=== PATIENT | female | born 1945 | race Caucasian/White ===

== ENCOUNTER → 2017-07-22 | Outpatient (CLI) | payer OTHER ==
[~2017-07-22] MED LIST: ACETAMINOPHEN-1 EAC1 PO; ACETAMINOPHEN325 M1 PO; ALDARA1 EACH TP; AMOXICILLIN 50500 MG PO; BACTRIM DS TAB1 EACH PO; CALCIUM; CALCIUM 500 +1 EAC5 PO; CALCIUM 600 +1 EA11 PO; CATHFLO ACT2 MG/VIA1 PO; CELEBREX 200 M200 M1 PO; CIPRO500 MG PO; CIPROFLOXACIN500 M1 PO; CLARITIN-D 24 H1 TA1 PO; COLACE 100 MG100 MG PO; COLACE100 MG PO; COUMADIN 2.5MG2.5 M1 PO; COUMADIN 5 MG TA5 M1 PO; DAPTOMYCIN IV; DILAUDID 2 MG TA2 MG PO; DOXYCYCLINE 10100 MG; DOXYCYCLINE 10100 MG PO; DOXYCYCLINE HY100 MG PO; DURAGESIC1 EAC2; EFFEXOR XR75 MG PO; FENTANYL PA12 MCG/H1 TP; FENTANYL PA12 MCG/H1 TRANSDERM; FENTANYL PA12 MCG/HR TP; FENTANYL PA25 MCG/HR TOP; FENTANYL PA25 MCG/HR TP; FENTANYL1 EAC1 TD; FERRO-TIME325 MG PO; FUROSEMIDE 40 M40 MG PO; HAIR, SKIN & N1 EAC3 PO; HYDROCODON-ACE1 EAC7 PO; IRON325 PO; KLOR-CON 10 ER10 MEQ PO; LASIX 40 MG TAB40 M2 PO; LEVOXYL150 MCG PO; LEVOXYL50 MCG PO; LIDODERM 5%1 PATCH TOP; LISINOPRIL20 MG PO; LOPRESSOR 50 MG50 M1 PO; MAGNESIUM-VIT1 EACH PO; MAGNESIUM400 MG PO; MELATONIN3 MG PO; MINOCYCLINE 5050 M1 PO; MULTI VITAMIN1 EACH PO; MULTIVITAMINS PO; NEURONTIN 300300 M1 PO; NORCO 5-325 TA1 EACH PO; NYSTATIN 1100000 U/M PO; NYSTATIN CREAM; OMEGA-3 FISH O1 EAC5 PO; PAXIL 20 MG TAB20 MG PO; PENTOXIFYLLINE400 MG PO; POTASSIUM20 PO; PRADAXA150 MG; PRADAXA150 MG PO; PRENATAL COMPL1 EACH PO; PRENATAL PO; PROBIOTIC1 EAC1 PO; RIFAMPIN 300 M300 M1 PO; SIMVASTATIN40 MG PO; STOOL SOFTENER1 EAC2 PO; TERCONAZOLE20 GM TOP; TERCONAZOLE20 GM VAG; TOPROL XL50 MG PO; TRAMADOL 50 MG50 MG PO; TYLENOL325 MG PO; ULTRACET TABLET1 TAB PO; VANCOMYCIN1 GM/250 M IV; VITAMIN D32000 UNI1 PO; VITAMIN D3400 UNI2 PO; XANAX 0.5 MG0.5 M1 PO; XARELTO20 MG PO; ZYRTEC-D TABLE1 EAC1 PO; [UNRECOGNIZED DRUG - OTHER] TOP
== END ==
LOC: RAD 03:33
DX: Z12.31 Encounter for screening mammogram for malignant neoplasm of breast (principal)

== ENCOUNTER → 2018-08-10 | Outpatient (CLI) | payer OTHER | LOC: BC 03:13 | DX: Z12.31 Encounter for screening mammogram for malignant neoplasm of breast (principal) ==

== ENCOUNTER 2018-10-28 18:27 | Inpatient (IN) | payer OTHER ==
[~2018-10-28] VITALS: Ht 172.7 cm; Wt 160.1 kg
[2018-10-28 18:28] VITALS: BP 125/57
[2018-10-28 19:43] LABS: ABSOLUTE NEUTROPHILS 5.1 thou/uL (1.4-8.2); BASOPHILS 1.2 % (0.0-2.0); EOSINOPHILS 1.1 % (0.0-3.0); HEMATOCRIT 38.4 % (37.0-47.0); HEMOGLOBIN 12.3 gm/dL (12.0-15.0); LYMPHOCYTES 16.8 % (24.0-44.0); MCH 30.2 pg (26.0-34.0); MCHC 32.1 g/dL (28.0-37.0); MCV 94.2 fL (80.0-100.0); MONOCYTES 10.5 % (1.0-8.0); PLATELET COUNT 255 thou/uL (150-400); POLYS 70.4 % (36.0-66.0); RBC 4.07 mil/uL (4.20-5.00); WBC 7.2 thou/uL (4.0-11.0)
[2018-10-28 19:48] LABS: ANION GAP 3 mmol/L (7-16); BUN 29 mg/dL (7-18); CALCIUM 8.9 mg/dL (8.5-10.1); CHLORIDE 105 mmol/L (98-107); CO2 32 mmol/L (21-32); CREATININE 1.2 mg/dL (0.6-1.0); GLUCOSE 94 mg/dL (74-106); POTASSIUM 5.3 mmol/L (3.5-5.1); SODIUM 140 mmol/L (136-145)
[2018-10-28 20:02] LABS: MAGNESIUM 1.8 mg/dL (1.8-2.4); SGOT 48 U/L (15-37); SGPT 19 U/L (30-65); TOTAL BILIRUBIN 0.7 mg/dL (<0.1-1.0); TOTAL PROTEIN 6.6 g/dL (6.4-8.2); TROPONIN-I <0.06 ng/mL (<0.06)
[2018-10-28 21:01] VITALS: BP 127/54
[2018-10-28 21:17] VITALS: BP 110/33
[2018-10-28 23:42] VITALS: BP 141/61
--- NOTE | 2018-10-29 03:23 | NUR ---
ADMIT FROM ER. DURING ADMISSION IN THE PT ER PHYSICIAN INDICATED PT DID NOT WANT TO TAKE LASIX THIS EVENING, NOR WANTED HENNING. BLLE +3 WITH DEEP PITTING. SPOKE TO PT ABOUT BENEFITS OF MEDICATION WITH DISEASE PROCESS. MOVING THE PT TAKES MAX ASSISTANCE. WOUNDCARE PICTURES WERE TAKEN ON 3 ITEMS. PUT EXTERNAL CATH ON PT. HOURLY ROUNDING.
[2018-10-29 03:46] VITALS: BP 110/53
[2018-10-29 07:30] VITALS: BP 118/61
--- NOTE | 2018-10-29 08:52 | EKG ---
[address] [employer] 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 : 1945 Requested By: Vinicio Martines Order Number: [id number] MD: Rob Ash Measurements Intervals Cyril Rate: 75 P: NE: QRS: 49 QRSD: 105 T: 21 QT: 390 QTc: 436 Interpretive Statements Atrial fibrillation Low voltage, precordial leads Minimal ST depression, anterolateral leads Compared to ECG 10/24/2015 15:41:13 No significant change was found Electronically Signed On 10-29-2018 8:52:40 INDEX CLERK by Rob Ash [email or web address] <ELECTRONICALLY SIGNED> By: Rob Ash MD, [facility] 10/29/18 0852 [id number] Rob Ash MD, [facility] /EPI
[2018-10-29 12:00] VITALS: BP 113/66
--- NOTE | 2018-10-29 12:21 | NUR ---
Nutrition: pt admitted with left knee pain, heart failure, HTN. Seen per consult related to malnutrition and heart healthy education. Defer malnutrition dx to physician. Pt reports appetite is good. Weights are increased 30# from usual. 2+ generalized edema and 3+ bilateral leg edema. Does not follow diet at home although avoids salt. See education log for details. Otherwise consider low risk.
--- NOTE | 2018-10-29 15:15 | 2DMMODE ---
[facility] [place] [address] 2 D/M-MODE ECHOCARDIOGRAM Name: ANAMIKA MEEK [place] Room #: 363-P ADM IN M.R.#: [id number] Admission: 10/28/18 Attend Phys: Ron Manley MD Discharge: Date of : 49 Date of Service: 10/29/18 1139 Report #: [id number] THIS REPORT FOR: //name// APPROVED REPORT Study performed: 10/29/2018 10:11:06 EXAM: Comprehensive 2D, Doppler, and color-flow Echocardiogram with contrast Patient Location: Bedside Room #: 363 Status: routine BSA: 2.56 HR: 72 bpm BP: 118/61 mmHg Rhythm: Atrial Fibrillation Other Information Study Quality: FairTechnically Limited Indications Congestive Heart Failure Atrial Fibrillation Echo Enhancing Agent Indication: Endocardial border delineation Agent(s) / Amount(s) Used: Optison 10 cc 2D Dimensions RVDd: 40.30 mm IVSd: 13.57 (7-11mm) LVOT Diam: 22.04 (18-24mm) LVDd: 42.82 mm PWd: 13.88 (7-11mm) Ascending Ao: 34.63 (22-36mm) LVDs: 31.31 (25-40mm) Aortic Root: 33.02 mm Volumes Left Atrial Volume (Systole) Single Plane 4CH: 89.90 mL Single Plane 2CH: 63.17 mL LA ESV Index: 31.05 mL/m2 Aortic Valve AoV Peak Ramon.: 1.31 m/s AO Peak Gr.: 8.49 mmHg LVOT Max P.53 mmHg LVOT Max V: 1.06 m/s PÉREZ Vmax: 3.08 cm2 [facility] [place] [address] [place] [address] 2 D/M-MODE ECHOCARDIOGRAM Name: ANAMIKA MEEK [place] Room #: 363-P ADM IN .R.#: [id number] Admission: 10/28/18 Attend Phys: Ron Manley MD Discharge: Date of : 49 Date of Service: 10/29/18 1139 Report #: [id number] Mitral Valve E/A Ratio: 1.0 MV Decel. Time: 138.69 ms MV E Max Ramon.: 1.34 m/s MV A Ramon.: 1.31 m/s MV PHT: 40.22 ms Pulmonary Valve PV Peak Ramon.: 0.70 m/s PV Peak Gr.: 1.99 mmHg Tricuspid Valve TR Peak Ramon.: 3.65 m/s TR Peak Gr.: 53.32 mmHg Left Ventricle The left ventricle is normal size. Mild concentric left ventricular hypertrophy. The left ventricular systolic function is normal. The left ventricular ejection fraction is within the normal range. LVEF is 55-60%. This study is not technically sufficient to allow evaluation of the LV diastolic function due to atrial fibrillation. Atria Left atrium is dilated. Right atrium is dilated. Aortic Valve Aortic valve is trileaflet. Aortic valve is calcified. No aortic regurgitation is present. There is no aortic valvular stenosis. Mitral Valve The mitral valve is normal in structure. Mild mitral regurgitation. No evidence of mitral valve stenosis. Tricuspid Valve The tricuspid valve is normal in structure. Moderate tricuspid regurgitation. Unable to assess PA pressure due to poor subcostal window. Pulmonic Valve Pulmonic valve is not well visualized. There is no pulmonic valvular regurgitation. Great Vessels [facility] [address] [address] 2 D/M-MODE ECHOCARDIOGRAM Name: ANAMIKA MEEK JUDITH Room #: 363-P ADM IN M.R.#: [id number] Admission: 10/28/18 Attend Phys: Ron Manley MD Discharge: Date of : 49 Date of Service: 10/29/18 1139 Report #: [id number] The aortic root is normal in size. The ascending aorta is normal in size. Pericardium There is no pericardial effusion. <Conclusion> The left ventricle is normal size. LVEF is 55-60%. Left atrium is dilated. Right atrium is dilated. Aortic valve is trileaflet. Aortic valve is calcified. No aortic regurgitation is present. There is no aortic valvular stenosis. The mitral valve is normal in structure. Mild mitral regurgitation. The tricuspid valve is normal in structure. Moderate tricuspid regurgitation. Unable to assess PA pressure due to poor subcostal window. Pulmonic valve is not well visualized. The aortic root is normal in size. There is no pericardial effusion. <ELECTRONICALLY SIGNED> By: Andrae Patel MD 10/29/18 1139 1139 1139 Andrae Patel MD /INF
[2018-10-29 15:24] VITALS: BP 105/43
--- NOTE | 2018-10-29 15:32 | NUR ---
WOUND CONSULT: PT. WAS SEEN TODAY BY DR. CALVO AND MYSELF. PT. HAS LYMPEDEME WITH CELLULITIS TO HER LOWER EXTREMTIYS. SHE HAD SKIN CANCER AT ONE POINT AND HAD SURGERY TO REMOVE THE SPOTS. PT. LEGS ARE VERY DRY AND FLAKY. PT. ALSO SUFFERES FROM EXCORATION UNDER HER PANNUS AND BREAST. RECOMMENDATIONS: LOTION TO LEGS AND INTERDRY TO PANNUNS AND BREAST. PT. AND STAFF NURSE WERE INSTRUCTED ON PLAN OF CARE.
[2018-10-29 19:32] VITALS: BP 132/80
--- NOTE | 2018-10-29 19:36 | NUR ---
ASSUMED PT CARE AT 0700H. PT HAS NO S/S OF DISTRESS. PT A&O X4. PT STATES NO PAIN. PT TOLERATES MEDS AND MEALS. PT L HIP DRS C/D/I. PT HAD TOP CREAM ON BILATERAL LEGS. PT BILATERAL RUELAS WOUNDS WELT STITCH CLEANER ARE DRY. PT USES EXTERNAL CATH. PT UNDER BREAST AND ABD HAS INTERDRY WITH REDNESS SKIN. PT ON Q2 TURNS. PT USES MAX ASSIST. PT ON AIR LOSS MATTRESS. PT CALL LIGHT WITHIN REACH. PT CONTINUES TO BE MONITORED FOR SAFETY.
[2018-10-30 04:48] VITALS: BP 108/52
--- NOTE | 2018-10-30 05:29 | NUR ---
RESUMED CARE FOR PT THIS EVENING. PT STATES SHE DID NOT SLEEP WELL THE PREVIOUS NIGHT. I AGREED WITH PT THAT I WOULD LIMIT THE AMOUNT OF INTERRUPTIONS THROUGHOUT THE SHIFT AND ALLOW FOR SOME SOLID SLEEP. ANSWERED PT AND FAMILY'S QUESTIONS ABOUT THE POC. COMPLETED SHIFT ASSESSMENT AND COMPLETED MED PASS. PT STATES NO PAIN OR NAUSEA. VSS. WILL CONTINUE TO MONITOR.
[2018-10-30 05:40] LABS: HEMATOCRIT 34.4 % (37.0-47.0); HEMOGLOBIN 11.1 gm/dL (12.0-15.0); MCH 30.6 pg (26.0-34.0); MCHC 32.4 g/dL (28.0-37.0); MCV 94.4 fL (80.0-100.0); RBC 3.64 mil/uL (4.20-5.00); WBC 5.7 thou/uL (4.0-11.0)
[2018-10-30 05:52] LABS: CALCIUM 8.4 mg/dL (8.5-10.1); CREATININE 1.4 mg/dL (0.6-1.0); MAGNESIUM 1.7 mg/dL (1.8-2.4); POTASSIUM 4.3 mmol/L (3.5-5.1)
[2018-10-30 07:31] VITALS: BP 120/59
[2018-10-30 08:22] LABS: FOLIC ACID 72.5 ng/mL (8.6-58.9)
[2018-10-30 12:07] VITALS: BP 127/61
--- NOTE | 2018-10-30 14:43 | NUR ---
ASSESSMENT: CM REVIEWED CHART AND MET WITH PATIENT AT THE BEDSIDE. PT WAS ADMITTED WITH CHF AND LEFT KNEE PAIN. PT REPORTS LIVING IN A HOUSE WITH HER . PT HAS A RAMP TO ENTER THE HOME AND DOES NOT HAVE TO USE ANY STEPS. PT HAS A LIFT CHAIR, WALKER, AND WHEELCHAIR. PT REPORTS HAVING A SHOWER BENCH AND GRAB BAR. PT STATES SHE HAS HAD [facility] IN THE PAST FOR HH AND HAS ALSO BEEN TO [facility] IN THE PAST FOR SNF STAY. PATIENT IS NEEDING POST ACUTE CARE POST DISCHARGE. CM DISCUSSED ROLE AND ASKED IF PATIENT WANTED REFERRAL TO BE SENT TO [facility] AND SHE STATED SHE HAD A FRIEND THERE AND IS UNSURE SHE WOULD WANT TO GO BACK BUT WOULD HAVE TO DISCUSS WITH HER AND DAUGHTER. CM DISCUSSED THAT THE SOONER REFERRALS ARE SENT OUT THE BETTER AND ALSO THAT REFERRALS TAKE SOME TIME AND HAVE TO CHECK BED AVAILABLITY. PT REPORTS SHE DOES NOT WANT REFERRALS SENT OUT AT THIS TIME. PT STATING SHE CAME TO THE HOSPITAL FOR A REASON AND SHE IS NOT READY TO BE DISCHARGED. CM LEFT PATIENT WITH SNF LIST TO REVIEW WITH HER AND DAUGHTER AND CM STATED CM CAN COME BACK LATER TO SEND REFERRALS AND SHE STATED SHE WILL NOT BE READY FOR REFERRALS TO BE SENT TODAY. CM NOTIFIED ATTENDING. CM WILL CONTINUE TO FOLLOW TO ASSIST NEEDED.
[2018-10-30 16:27] VITALS: BP 120/72
[2018-10-30 19:13] VITALS: BP 96/55
--- NOTE | 2018-10-30 20:41 | NUR ---
ASSUMED PT CARE AT 0700H. PT A&O X4. PT STATES CONCERN OF BEING CONSTIPATED. CONSULTED PHYSICIAN, NEW ORDERS RECEIVED AND ACKNOWLEDGED. PT HAD BM IN THE AFTERNOON. BOWEL WAS SEMI SOFT STOOL WITH COVERED FRESH BLOOD. CONSULTED PHYSICIAN. WRITTEN ORDERS RECEIVED AND ACKNOWLEDGED. THIS EVENING PT HAD TAKEN PRUNE JUICE AND MIRALAX EARLIER. PT BOWEL WERE SOFT AND FORMED WITH LIQUID DARK BLOOD STAINED PAD FLUID. CONSULT FOR GI INPLACE. PASSED ON CURRENT STATUS TO ON COMING STAFF PLUS CONCERN OF CASE MANAGEMENT DC TO FACILITY CONCERNS. PT L HIP DRS C/D/I AND BILATERAL WOUND ADDRESSED WITH [facility]. PT CALLS APPROPRIATELY. PT CONT TO BE Q2H TURN AND CONTINUES TO BE MONITORED FOR SAFETY.
[2018-10-30 23:37] VITALS: BP 129/66
[2018-10-31 04:00] VITALS: BP 108/50
[2018-10-31 07:20] VITALS: BP 133/54
[2018-10-31 07:39] LABS: CALCIUM 8.7 mg/dL (8.5-10.1); CREATININE 1.4 mg/dL (0.6-1.0)
--- NOTE | 2018-10-31 08:05 | NUR ---
ASSUMED CARE AT 1900, ASSESSMENT COMPLETED. SPOKE EXTENSIVELY WITH PT AND HER DAUGHTER REGARDING DISCHARGE PLANS AND ITEMS TO DISCUSS WITH PHYSICIAN. PER BOTH, GUZMAN (DTR) SHOULD BE SPOKEN WITH REGARDING ANY PLANS, TESTS, OR RESULTS, AND HAS LEFT HER NUMBERS TO BE CONTACTED AT ANY TIME NEEDED. PT DENIED PAIN EXCEPT MILD PAIN IN HER KNEES WHICH VOLTAREN GEL HELPED WITH. NO NAUSEA OR SOB. 3-4+ PITTING EDEMA IN BILAT LEGS AND FEET, MILD EDEMA TO LEFT HAND. CLEANED EXCORIATED AREAS UNDER BREASTS AND ABD FOLDS, REPLACED INTERDRY UNDER BREASTS, CHANGED GOWN, CHANGED EXTERNAL FEMALE CATHETER. HAS BEEN AFIB WITH HR 70-90 ON TELE. ONE MEDIUM BM LAST NIGHT, FORMED WITH SMALL AMOUNT OF BLOODY LIQUID SURROUNDING IT; GI CONSULTED AND WILL SEE TODAY. OBTAINED ORDERS FOR LABS THIS AM TO FOLLOW TREND OF KIDNEY FUNCTION. IV LASIX GIVEN THIS AM, HAD APPROX 1050 ML URINE OUT VIA CATHETER. NO OTHER CONCERNS, SHIFT REPORT GIVEN AT 0700.
[2018-10-31 11:52] VITALS: BP 129/58
--- NOTE | 2018-10-31 15:19 | NUR ---
ASSUMED PATIENT CARE AT 0715. A&OX4. COMPLAINTS OF BACK PAIN WHEN PATIENT SITS UP TO HIGH. ATTEMPTED TO SIT AT EDGE OF BED FOR LUNCH WITHOUT SUCCESS. EXTERNAL FEMALE CATH IN PLACE. PATIENT HAD BOWEL MOVEMENT TODAY ON BEDPAN. STOOL WAS FREE FROM BLOOD. PATIENT HAS NOT PICKED A FACILITY FOR DISCHARGE. FAMILY AT BEDSIDE MOST OF THE DAY. SLOWLY WORKING TOWARDS GOALS.
[2018-10-31 15:55] VITALS: BP 118/48
[2018-10-31 19:58] VITALS: BP 111/67
[2018-11-01 04:17] VITALS: BP 88/52
--- NOTE | 2018-11-01 05:01 | NUR ---
ASSUMED CARE OF PT AT 1900. A&Ox4, COOPERATIVE. VS STABLE. AFIB ON TELE AND COMPLIANT W/ MEDICATIONS. DENIED PAIN AND RESP DISTRESS. C/O FEELING WET, EXTERNAL FEMALE WICK CHANGED AND BEDDING CHANGED. PT WAS ABLE TO ASSIST W/ BED MOBILITY, TURNING FROM SIDE TO SIDE W/ ASSIST. WAS AT BEDSIDE UNTIL 2200. BLE 4+ EDEMA, FOOT OF BED ELEVATED, FIDEL HOSE ON. PROGRESSING TOWARD POC GOALS. SLOWLY PROGRESSING TOWARDS POC GOALS. WILL CONTINUE TO PROVIDE CARE AND MONITOR.
[2018-11-01 07:52] VITALS: BP 105/39
--- NOTE | 2018-11-01 11:01 | NUR ---
care of pt assumed this am @ ~0700. pt noted to be sleeping soundly this am, but need to awaken pt @ 1000 for morning medications, assessment and breakfast waiting. pt stated she slept well last night, but just tired this am. pt noted to be minimally motivated to increase her activity today. she states she was unable to sit on the side of the bed (yesterday) for any length of time due to the pain in her buttock/lower back (rt a chronic condition she has). pt denies her desire to try an ambulate to the door jam today. pt does not think that she can sit up in the chair for any length of time today. pt denies need for pain medication this am, denies soa and denies n/v. pt states she has had hx of constipation, but noc rn stated pt had x2 bm yesterday. noted ble discoloration (torres-black) to skin, pt states this has been normal for her over the last year rt an antibx she has been taking for years, ble elevated on pillows dt edema and comfort level.
[2018-11-01 11:19] VITALS: BP 111/51
[2018-11-01 15:27] VITALS: BP 113/72
[2018-11-01 20:40] VITALS: BP 115/62
[2018-11-02 05:10] VITALS: BP 114/47
[2018-11-02 05:28] LABS: HEMATOCRIT 34.5 % (37.0-47.0); HEMOGLOBIN 11.4 gm/dL (12.0-15.0); MCH 31.3 pg (26.0-34.0); MCHC 33.1 g/dL (28.0-37.0); MCV 94.6 fL (80.0-100.0); PLATELET COUNT 205 thou/uL (150-400); RBC 3.64 mil/uL (4.20-5.00); RDW 16.1 % (10.5-14.5); WBC 5.5 thou/uL (4.0-11.0)
[2018-11-02 05:54] LABS: ALBUMIN 1.8 g/dL (3.4-5.0); CALCIUM 8.7 mg/dL (8.5-10.1); CREATININE 1.4 mg/dL (0.6-1.0); MAGNESIUM 1.8 mg/dL (1.8-2.4); TOTAL BILIRUBIN 0.5 mg/dL (<0.1-1.0); TOTAL PROTEIN 5.2 g/dL (6.4-8.2)
[2018-11-02 06:00] LABS: ABSOLUTE NEUTROPHILS 3.9 thou/uL (1.4-8.2); ANISOCYTOSIS 1+; ATYPICAL LYMPHS 4 %
[2018-11-02 07:17] VITALS: BP 90/51
--- NOTE | 2018-11-02 07:45 | NUR ---
ASSUMED CARE OF PT AT 1900. A&Ox4, COOPERATIVE. VS WERE STABLE OVER NOC. BP RUNS SOFT IN AM THIS AM AND YEST MORNING. BETTER WHEN RECHECKED AROUND 0800. BECAME VERY UPSET OVER NOC WHEN SHE FOUND OUT MINOCYCLINE HAD BEEN DC'd. CONTACTED CARGO TRIMMER AND WAS REORDERED PT REQUESTED. PT CONTINUES INCONTINENCE WITH AN EXTERNAL FEMALE CATHETER IN PLACE. CHANGED PRN. REQUESTED A BED BAUTISTA TO TRY TO HAVE A BM, WAS NOT ABLE TO GO BUT TRIED. NO ACUTE OR RESP DISTRESS. SLOW PROGRESSION TOWARDS POC GOALS.
--- NOTE | 2018-11-02 10:24 | NUR ---
ON-GOING ASSESSMENT: CM REVIEWED CHART AND MET WITH PATIENT AND HER AT THE BEDSIDE. CM ALSO SPOKE WITH PATIENTS DAUGHTER. PATIENT IS AGREEABLE TO GO TO SNF AND DAUGHTER HAS TOURED DIFFERENT FACILITIES THIS WEEKEND AND WANTS A REFERRAL TO [facility] THEIR FIRST AND SEON CHOICE. CM NOTIFIED INS[employer] TO ASSIST WITH REFERRALS. CM WILL CONTINUE TO FOLLOW.
--- NOTE | 2018-11-02 10:37 | NUR ---
DP SENT REFERRALS TO [facility], REQUESTING THEY LET US KNOW IF THEY CAN ACCEPT PATIENT. PATIENT LIKELY TO DISCHARGE TODAY. DP WILL FOLLOW UP.
[2018-11-02 11:19] VITALS: BP 104/51
[2018-11-02] MEDS ORDERED: CITRATE OF MAG296 ML PO (12:30)
[2018-11-02] MEDS ORDERED: LEVAQUIN 500 M500 M1 PO (12:30)
[2018-11-02] MEDS ORDERED: MIRALAX17 GM PO (12:30)
[2018-11-02] MEDS ORDERED: LASIX 40 MG TAB40 M1 PO (12:30)
[2018-11-02] MEDS ORDERED: AMMONIUM LACTA226 GM TOP (12:30)
[2018-11-02] MEDS ORDERED: COLACE 100 MG100 MG PO (12:30)
[2018-11-02] MEDS ORDERED: VOLTAREN GEL 1100 G1 TOP (12:30)
--- NOTE | 2018-11-02 14:46 | NUR ---
care of pt assumed this am @ ~0700. pt sitting w/ this am, both were present when dr. brantley stopped in. pt verbalized frustration w/ the care she has received from dr. brantley. pt advocate notified of pt concern this afternoon. pt tele dc'd and iv access dc'd rt discharge to [facility] this afternoon @ 1500. discharge packet gone through w/ pt and pt's daughter per their request. all belongings gathered by pt's daughter and exported to her [facility]. pt has preferred to use the bedpan vs the bsc today. use of external female catheter for urine collection today.
--- NOTE | 2018-11-02 16:07 | HC ---
[facility] [place] [address] CONSULTATION Name: NAAMIKA MEEK Room #: 363-P ADM IN M.R.#: [id number] Admission: 10/28/18 Attend Phys: Ron Manley MD Discharge: Date of : 49 Report #: [id number] THIS REPORT FOR: //name// CC: Ron Bella DATE OF SERVICE: 10/29/2018 CHIEF COMPLAINT: Lower extremity ulcerations. HISTORY OF PRESENT ILLNESS: This is a 73-year-old female patient who is admitted to the hospital with some knee pain. She apparently had mild shortness of breath. She was also noted to have ulceration to both lower extremities. I was asked to see her with regard to these ulcerations. She has had previous Mohs surgery on her lower extremities and has some venous stasis dermatitis. The patient denies significant pain associated with that. ALLERGIES: ADHESIVES, KETOROLAC, LATEX, HYDROCODONE, OXYCODONE. MEDICATIONS: Include Xanax, , Neurontin, Pradaxa, melatonin, Tylenol, Lasix, K-Dur, minocycline, Toprol, Levoxyl, Effexor. 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 SOCIAL HISTORY: Negative for alcohol or tobacco use. FAMILY HISTORY: Noncontributory. REVIEW OF SYSTEMS: CONSTITUTIONAL: No fever, chills, weight loss. NEUROLOGICAL: The patient denies focal weakness, numbness or tingling. EYES: The patient denies visual changes, redness or drainage. ENT: The patient denies earache, nasal drainage or sore throat. CARDIOVASCULAR: The patient denies chest pain, palpitation or diaphoresis. PULMONARY: The patient denies cough or shortness of breath. GASTROINTESTINAL: The patient denies nausea, vomiting, diarrhea, abdominal pain. ORTHOPEDIC: The patient does have pain, swelling in the lower extremities, pain in her left knee, as well as ulcerations to both lower extremities. Other systems in 14-point review of systems are negative. [address] [address] CONSULTATION Name: ANAMIKA MEEK FREDONIA Room #: 363-P ADM IN M.R.#: [id number] Admission: 10/28/18 Attend Phys: Ron Manley MD Discharge: Date of : 49 Report #: [id number] PHYSICAL EXAMINATION: VITAL SIGNS: At this time include pulse 70, respiration 17, blood pressure 105/43, and temperature 97.5. GENERAL: This is a chronically ill-appearing female patient who appears to be in mild discomfort. HEENT: Head normocephalic. Nose and throat are clear. NECK: Supple. LUNGS: Diminished. HEART: Irregular. ABDOMEN: Soft. Bowel sounds are present. SKIN: Examination of the skin folds of beneath her breast and abdominal wall demonstrate mild intertrigo present. EXTREMITIES: Lower extremities demonstrate 3+ edema. She has venous stasis dermatitis of bilateral lower extremities and evidence of healing, surgical wounds to both pretibial regions following Mohs surgery. These actually appear to be mostly closed. LABORATORY DATA: Sodium 142, potassium 4.3, chloride 104, CO2 35, BUN 31, creatinine 1.4, glucose 82. White blood cell count 5.7, hemoglobin 11.1. CLINICAL IMPRESSION: 1. Surgical wounds, bilateral lower extremities following Mohs surgery for squamous cell carcinoma. 2. Venous stasis dermatitis, bilateral lower extremities. 3. Skin fold intertrigo. 4. Congestive heart failure. 5. Morbid obesity. RECOMMENDATIONS: At this point in time, the patient would need low air loss mattress, q. 2 hour turning and positioning. She has declined Prevalon boots for lower extremities. Recommend AmLactin cream to her legs. Recommend elevation for now to help with edema. Recommend InterDry AG to deal with the skin fold dermatitis/intertrigo. I appreciate being asked to see her in consultation. <ELECTRONICALLY SIGNED> By: Williams Ramires MD 11/02/18 1607 [id number] Williams Ramires MD /nt
== END 2018-11-02 17:40 | DRG 682 ==
LOC: ER 18:27 → EROBS 20:52 → 3W 20:52
PROVIDERS: Emergency Medicine; Nurse Practitioner Acute Care; Nurse Practitioner Family; ADMIT Internal Medicine
DX: N17.9 Acute kidney failure, unspecified (principal); I50.33 Acute on chronic diastolic (congestive) heart failure; E43 Unspecified severe protein-calorie malnutrition; I13.0 Hypertensive heart and chronic kidney disease with heart failure and stage 1 through stage 4 chronic kidney disease, or unspecified chronic kidney disease; Z68.43 Body mass index [BMI] 50.0-59.9, adult; K62.5 Hemorrhage of anus and rectum; M17.12 Unilateral primary osteoarthritis, left knee; E66.01 Morbid (severe) obesity due to excess calories; Z71.3 Dietary counseling and surveillance; E03.9 Hypothyroidism, unspecified; F32.9 Major depressive disorder, single episode, unspecified; I87.2 Venous insufficiency (chronic) (peripheral); I48.2 Chronic atrial fibrillation; B96.89 Other specified bacterial agents as the cause of diseases classified elsewhere; M46.40 Discitis, unspecified, site unspecified; M62.84 Sarcopenia; K59.00 Constipation, unspecified; D64.9 Anemia, unspecified; G62.9 Polyneuropathy, unspecified; N18.3 Chronic kidney disease, stage 3 (moderate); L30.4 Erythema intertrigo; Z96.641 Presence of right artificial hip joint; Z96.651 Presence of right artificial knee joint; Z85.828 Personal history of other malignant neoplasm of skin; Z90.49 Acquired absence of other specified parts of digestive tract; Z86.14 Personal history of Methicillin resistant Staphylococcus aureus infection; Z79.899 Other long term (current) drug therapy; Z91.040 Latex allergy status; Z88.8 Allergy status to other drugs, medicaments and biological substances; Z91.048 Other nonmedicinal substance allergy status
CPT/HCPCS: 10879

== ENCOUNTER → 2018-12-30 | Outpatient (CLI) | payer OTHER ==
[~2018-12-30] MED LIST changes: +AMMONIUM LACTA226 GM TOP; +CITRATE OF MAG296 ML PO; +LASIX 40 MG TAB40 M1 PO; +LEVAQUIN 500 M500 M1 PO; +MIRALAX17 GM PO; +VOLTAREN GEL 1100 G1 TOP
== END ==
LOC: RAD 16:16
DX: I11.9 Hypertensive heart disease without heart failure (principal); M19.011 Primary osteoarthritis, right shoulder; M19.012 Primary osteoarthritis, left shoulder

== ENCOUNTER → 2019-02-26 | Outpatient (CLI) | payer OTHER | LOC: CAT 12:58 | DX: J90 Pleural effusion, not elsewhere classified (principal); I51.7 Cardiomegaly; I70.0 Atherosclerosis of aorta; N28.89 Other specified disorders of kidney and ureter; R60.0 Localized edema; R31.9 Hematuria, unspecified; Z90.49 Acquired absence of other specified parts of digestive tract ==

== ENCOUNTER 2019-03-22 19:32 | Inpatient (IN) | payer OTHER ==
[~2019-03-22] VITALS: Ht 170.2 cm; Wt 148.4 kg
--- NOTE | ~2019-03-22 | HC ---
[facility] [place] [address] CONSULTATION Name: ANAMIKA MEEK Room #: 241-P ADM IN M.R.#: [id number] Admission: 03/22/19 ������������������ Attend Phys: Aleksey Mccormack DO Discharge: ������������������ Date of : 49 Report #: [id number] THIS REPORT FOR: //name// CC: Aleksey Bella DATE OF SERVICE: 03/25/2019 HISTORY OF PRESENT ILLNESS: The patient is a 73-year-old white female, who was originally admitted to [facility] on 03/22/2019. She was having problems with worsening functional mobility at home. Typically, she is ambulatory with a walker from her lift chair to the bathroom, but she has had more and more problems and was only able to get up from a lift chair to the commode. She was noted to have mental status changes and increased assistance by family. She is morbidly obese. She was admitted, noted to have sepsis, thought secondary to urinary tract infection along with a question of myxedema coma. She also has had electrolyte abnormalities with renal insufficiency. She has acute on chronic diastolic heart failure. She has permanent atrial fibrillation. She is being treated for community-acquired pneumonia. She also has significant coagulopathy. Hematology has been involved. Gastroenterology has seen her as well and they are recommending an EGD with colonoscopy as an outpatient. She is not desiring to have it done at this time. There also is a stage 3 pressure ulcer of her gluteal fold with wound care involved. We are seeing her in rehabilitation medicine consultation. PAST MEDICAL HISTORY: Cardioversion x 2, atrial fibrillation, hypertension, hypothyroidism, right total hip replacement, depression, chronic anemia, right total knee arthroplasty in 2013. She has severe left knee degenerative arthritis, but she is not felt to be a candidate for a total knee replacement with her significant obesity. Has history of MRSA in the blood in 2013, history of diskitis in 2014, chronic kidney disease stage 3. ALLERGIES: KETOROLAC ADHESIVE/RECOMMENDATION IS TO USE PAPER TAPE, LATEX ALLERGY, HYDROCODONE, OXYCODONE. MEDICATIONS: Please see the full medication listing. HABITS: No history of tobacco or alcohol abuse. SOCIAL HISTORY: She lives in a house with her , no steps. She used a walker to get around as noted above, short distances. She also has an electric wheelchair/scooter for community distances. REVIEW OF SYSTEMS: Frustrated with her current status. No current complaints of chest pain, shortness of breath, or abdominal discomfort. Notes diffuse extremity discomfort and has chronic arthritic complaints involving the left [address] [address] CONSULTATION Name: ANAMIKA MEEK Room #: 241-P [facility] IN ..#: [id number] Admission: 03/22/19 ������������������ Attend Phys: Aleksey Mccormack DO Discharge: ������������������ Date of : 49 Report #: [id number]. PHYSICAL EXAMINATION: GENERAL: A 73-year-old white female, seen in the intensive care unit, in no obvious distress. VITAL SIGNS: Height 5 feet 7 inches, weight 321 pounds, morbidly obese white female. NEUROMUSCULOSKELETAL: She is able to follow basic one-step commands, some latency to her responses. She has some decreased range of motion of both upper extremities at end range with strength probably a grade 3+/5. She does have morbid obesity with a large pendulous abdomen. Lower extremities with no focal calf swelling. I would grade her strength at probably a grade 3 to 3+/5. Tone appeared to be intact. She has been max assist x 2 for basic bed mobility. ASSESSMENT: A 73-year-old white female with the following problem list: 1. Multifactorial encephalopathy, which appears to be improving. Likely causative factors include sepsis, thyroid abnormalities with hypothyroidism, initial question of myxedema coma, and electrolyte abnormalities. 2. Sepsis, thought secondary to urinary tract infection. 3. Community-acquired pneumonia. 4. Permanent atrial fibrillation. 5. Coagulopathy with Hematology involved. 6. Possible gastrointestinal bleed, likely related to anticoagulation. We will need EGD and colonoscopy as an outpatient as per GI. 7. Mild acute renal insufficiency superimposed on chronic kidney disease. 8. Stage 3 pressure ulcer, gluteal fold. 9. Advanced left knee degenerative arthritis. 10. Morbid obesity. PLAN: Therapy evaluations are continuing. I am uncertain if she has the tolerance for an acute in-hospital inpatient rehabilitation stay. At this point, we will follow along with you as she further medically stabilizes. Thank you for asking us to assist in this patient's care. ��������������������������������������������� ���������������������������������������� By: ��������������������������������������������� [id number] Ayush Cruz MD /nt
[2019-03-22 19:34] VITALS: BP 100/22
[2019-03-22 20:03] LABS: ABSOLUTE NEUTROPHILS 5.6 thou/uL (1.4-8.2); BASOPHILS 0.7 % (0.0-2.0); EOSINOPHILS 0.8 % (0.0-3.0); HEMATOCRIT 38.3 % (37.0-47.0); HEMOGLOBIN 12.7 gm/dL (12.0-15.0); MCH 29.9 pg (26.0-34.0); MCHC 33.1 g/dL (28.0-37.0); MCV 90.4 fL (80.0-100.0); MONOCYTES 10.9 % (1.0-8.0); PLATELET COUNT 194 thou/uL (150-400); POLYS 67.6 % (36.0-66.0); RBC 4.24 mil/uL (4.20-5.00); RDW 16.6 % (10.5-14.5); WBC 8.3 thou/uL (4.0-11.0)
[2019-03-22] MEDS ORDERED: UNICOMPLEX M TA1 TA1 PO (20:06)
[2019-03-22] MEDS ORDERED: MELATONIN5 M1 PO (20:06)
[2019-03-22] MEDS ORDERED: HAIR, SKIN & N1 EAC3 PO (20:07)
[2019-03-22] MEDS ORDERED: ZANTAC 150MG T150 MG PO (20:07)
[2019-03-22] MEDS ORDERED: TYLENOL325 MG PO (20:07)
[2019-03-22] MEDS ORDERED: COLACE100 MG PO (20:07)
[2019-03-22] MEDS ORDERED: SYNTHROID200 MCG PO (20:08)
[2019-03-22] MEDS ORDERED: NEURONTIN 300300 M1 PO (20:08)
[2019-03-22] MEDS ORDERED: EFFEXOR XR75 MG PO (20:08)
[2019-03-22] MEDS ORDERED: XANAX1 MG PO (20:09)
[2019-03-22] MEDS ORDERED: TOPROL XL50 MG PO (20:09)
[2019-03-22] MEDS ORDERED: POTASSIUM20 PO (20:10)
[2019-03-22] MEDS ORDERED: PRADAXA150 MG PO (20:10)
[2019-03-22] MEDS ORDERED: LASIX 40 MG TAB40 M2 PO (20:10)
[2019-03-22] MEDS ORDERED: DOXYCYCLINE 10100 MG PO (20:11)
[2019-03-22 20:47] LABS: URINE BILIRUBIN NEGATIVE (Negative); URINE BLOOD 3+ (Negative); URINE CLARITY CLEAR; URINE COLOR YELLOW; URINE GLUCOSE-RANDOM* NEGATIVE (Negative); URINE KETONES NEGATIVE (Negative); URINE PROTEIN (DIPSTICK) NEGATIVE (Negative); URINE UROBILINOGEN 0.2 E.U./dl (0.2-1.0)
[2019-03-22 20:49] LABS: URINE LEUKOCYTES-REFLEX 3+ (Negative); URINE NITRITE-REFLEX POSITIVE (Negative)
[2019-03-22 20:57] LABS: BACTERIA-REFLEX >30 Many /HPF (None Seen); CRYSTALS None Seen /LPF (None Seen); HYALINE CASTS 0-3 Few /LPF (None Seen); SQUAMOUS 0-3 Few /LPF (0-3); URINE RBC >20 Many /HPF (0-2)
[2019-03-22 21:11] LABS: ALBUMIN 1.4 g/dL (3.4-5.0); ANION GAP 3 mmol/L (7-16); BUN 35 mg/dL (7-18); CALCIUM 8.1 mg/dL (8.5-10.1); CHLORIDE 106 mmol/L (98-107); CO2 33 mmol/L (21-32); CREATININE 1.6 mg/dL (0.6-1.0); DIRECT BILIRUBIN 0.3 mg/dL (<0.1-0.3); GLUCOSE 85 mg/dL (74-106); POTASSIUM 4.4 mmol/L (3.5-5.1); SGOT 46 U/L (15-37); SGPT 26 U/L (30-65); SODIUM 142 mmol/L (136-145); TOTAL BILIRUBIN 0.9 mg/dL (<0.1-1.0); TOTAL PROTEIN 5.9 g/dL (6.4-8.2); TROPONIN-I <0.06 ng/mL (<0.06)
[2019-03-22 23:04] LABS: PROTIME 87.6 Seconds (9.3-11.4)
[2019-03-22 23:07] LABS: INR 8.5
[2019-03-23] VITALS (13 sets, daily range): BP systolic 98–120; BP diastolic 32–53
[2019-03-23 00:31] LABS: INR 9.2
[2019-03-23 04:04] LABS: CALCIUM 7.9 mg/dL (8.5-10.1); CREATININE 1.6 mg/dL (0.6-1.0); POTASSIUM 5.6 mmol/L (3.5-5.1)
[2019-03-23 04:13] LABS: PROTIME 83.7 Seconds (9.3-11.4)
[2019-03-23 04:16] LABS: INR 8.1
[2019-03-23 04:37] LABS: HEMATOCRIT 35.7 % (37.0-47.0); HEMOGLOBIN 11.7 gm/dL (12.0-15.0); MCH 29.7 pg (26.0-34.0); MCHC 32.8 g/dL (28.0-37.0); MCV 90.3 fL (80.0-100.0); RBC 3.95 mil/uL (4.20-5.00); RDW 16.3 % (10.5-14.5); WBC 6.2 thou/uL (4.0-11.0)
--- NOTE | 2019-03-23 07:41 | EKG ---
[address] [address] ELECTROCARDIOGRAM REPORT Name: ANAMIKA MEEK Room #: 170-2 ADM IN M.R.#: [id number] ������������������ Admission: 03/22/19 ������������������ Attend Phys: Aleksey Mccormack DO Discharge: ������������������ Date of : 49 Report #: [id number] ����������������������������������������������������������������� [id number] THIS REPORT FOR: //name// 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 : 1945 Requested By: Zaid Lomas Order Number: [id number] MD: Rob Ash Measurements Intervals [place] Rate: 74 P: TX: QRS: 52 QRSD: 110 T: -71 QT: 430 QTc: 477 Interpretive Statements Atrial fibrillation Nonspecific repol abnormality, diffuse leads Compared to ECG 10/28/2018 19:35:43 No significant change was found Electronically Signed On 03-23-2019 7:41:13 CDT by Rob Ash [email or web address] ��������������������������������������������� <ELECTRONICALLY SIGNED> ���������������������������������������� By: Rob Ash MD, [facility] ��������������������������������������������� 03/23/19 0741 1950 1950 Rob Ash MD, [facility] /EPI
[2019-03-23] MEDS ORDERED: ZANTAC 150MG T150 MG PO (09:42)
[2019-03-23] MEDS ORDERED: HAIR SKIN NAIL1 EACH PO (09:42)
[2019-03-23] MEDS ORDERED: PRADAXA150 MG PO (09:44)
[2019-03-23 11:40] LABS: BASOPHILS 0.5 % (0.0-2.0); HEMATOCRIT 35.3 % (37.0-47.0); HEMOGLOBIN 11.8 gm/dL (12.0-15.0); LYMPHOCYTES 8.8 % (24.0-44.0); MCH 29.9 pg (26.0-34.0); MCHC 33.5 g/dL (28.0-37.0); MCV 89.5 fL (80.0-100.0); MONOCYTES 1.5 % (1.0-8.0); PLATELET COUNT 194 thou/uL (150-400); POLYS 89.2 % (36.0-66.0); RBC 3.94 mil/uL (4.20-5.00); RDW 16.5 % (10.5-14.5); WBC 6.7 thou/uL (4.0-11.0)
--- NOTE | 2019-03-23 11:51 | NUR ---
patient referred to IR due to elevated INR of 8.1 for central line placement
[2019-03-23 11:53] LABS: CALCIUM 8.2 mg/dL (8.5-10.1); CREATININE 1.7 mg/dL (0.6-1.0); POTASSIUM 4.3 mmol/L (3.5-5.1)
[2019-03-23 12:05] LABS: ALBUMIN 1.4 g/dL (3.4-5.0); TOTAL BILIRUBIN 0.5 mg/dL (<0.1-1.0); TOTAL PROTEIN 5.7 g/dL (6.4-8.2)
[2019-03-23 14:11] LABS: CORTISOL BASELINE 14.9 ug/dL (()); CORTISOL POST 109.1 ug/dL (Not Estab.)
[2019-03-23 15:14] LABS: HEMATOCRIT 35.7 % (37.0-47.0); HEMOGLOBIN 11.8 gm/dL (12.0-15.0)
[2019-03-23 15:36] LABS: APTT 82.3 Seconds (24.5-32.8); PROTIME 57.5 Seconds (9.3-11.4)
[2019-03-23 15:38] LABS: INR 5.6
--- NOTE | 2019-03-23 16:00 | NUR ---
ADMISSION NOTE: PT ARRIVED ON THE UNIT @ 1450, PT ALERT AND ORIENTED X 2, PT ABLE TO FOLLOW SIMPLE COMMANDS. PT AFIB ON THE MONITOR, PT AFEBRILE, BP STABLE, NS @ 150ML/HR, R IJ PLACED AT BEDSIDE BY IR. PT ON RA SATS IN THE HIGH 90'S, PT SHOWS NO SIGNS OF SHORTNESS OF AIR. PT ON A REGULAR DIET, BUT TOO DROWSY TO EAT ANYTHING, HENNING IN PLACE. FAMILY HERE AND INVOLVED IN CARE. PLAN OF CARE, WILL CONT TO MONITOR.
--- NOTE | 2019-03-23 16:26 | 2DMMODE ---
[facility] [address] [place] [address] 2 D/M-MODE ECHOCARDIOGRAM Name: ANAMIKA MEEK Colby Room #: 241-P [facility] IN [facility].#: [id number] ������������� Admission: 03/22/19 ������������� Attend Phys: Aleksey Mccormack, Discharge: ��� ������������� ��� Date of : 49 Date of Service: 03/23/19 1626 �� Report #: [id number] �������� ��������������������������������������������[id number] THIS REPORT FOR: //name// APPROVED REPORT Study performed: 03/23/2019 15:05:23 EXAM: Comprehensive 2D, Doppler, and color-flow Echocardiogram Patient Location: ICU Room #: 241 Status: routine BSA: 2.51 HR: 103 bpm BP: 118/47 mmHg Rhythm: Atrial Fibrillation Other Information Study Quality: Adequate Technically limited study due to morbid obesity and limited mobility. Indications Leg edema. Hx: Afib, cardioversions, HTN. Echo Enhancing Agent Indication: Endocardial border delineation Agent(s) / Amount(s) Used: Optison 4 cc 2D Dimensions RVDd: 47.91 mm IVSd: 10.01 (7-11mm) LVOT Diam: 20.64 (18-24mm) LVDd: 47.34 mm PWd: 11.25 (7-11mm) LVDs: 36.54 (25-40mm) Aortic Root: 33.39 mm Volumes Left Atrial Volume (Systole) Single Plane 4CH: 106.83 mL Single Plane 2CH: 121.50 mL LA ESV Index: 48.00 mL/m2 Aortic Valve LVOT Max P.60 mmHg LVOT Max V: 0.80 m/s [facility] [address] [address] 2 D/M-MODE ECHOCARDIOGRAM Name: ANAMIKA MEEK Colby Room #: 241-P [facility]#: [id number] ������������� Admission: 03/22/19 ������������� Attend Phys: Aleksey Mccormack, Discharge: ��� ������������� ��� Date of : 49 Date of Service: 03/23/19 1626 �� Report #: [id number] �������� ��������������������������������������������[id number] Mitral Valve MV Decel. Time: 150.58 ms MV E Max Ramon.: 1.53 m/s Pulmonary Valve PV Peak Ramon.: 0.79 m/s PV Peak Gr.: 2.50 mmHg Tricuspid Valve TR Peak Ramon.: 2.96 m/s TR Peak Gr.: 35.43 mmHg Left Ventricle The left ventricle is normal size. There is normal LV segmental wall motion. There is normal left ventricular wall thickness. Left ventricular systolic function is normal. LVEF is 55%. This study is not technically sufficient to allow evaluation of the LV diastolic function due to atrial fibrillation. Right Ventricle Right ventricle is dilated. Right ventricle is mildly hypokinetic. Atria Left atrium is severely dilated. Right atrium is severely dilated. Aortic Valve The aortic valve is grossly normal. No aortic regurgitation is present. There is no aortic valvular stenosis. Mitral Valve The mitral valve is normal in structure. Mild mitral regurgitation. Tricuspid Valve The tricuspid valve is normal in structure. Moderate to severe tricuspid regurgitation. Estimated PAP is 35mmHg plus the right atrial pressure. Pulmonic Valve Pulmonic valve is not well visualized. Great Vessels The aortic root is normal in size. The ascending aorta is normal in size. IVC is not well visualized. [facility] [address] [place] [address] 2 D/M-MODE ECHOCARDIOGRAM Name: ANAMIKA MEEK Room #: [facility] IN [facility].#: [id number] ������������� Admission: 03/22/19 ������������� Attend Phys: Aleksey Mccormack, Discharge: ��� ������������� ��� Date of : 49 Date of Service: 03/23/191625 �� Report #: [id number] �������� ��������������������������������������������[id number] Pericardium There is no pericardial effusion. <Conclusion> Technically limited study Left ventricular systolic function is normal. There is normal LV segmental wall motion. LVEF 55%. Right ventricle is dilated. Both atria are severely dilated. The aortic valve is grossly normal. No aortic regurgitation or stenosis The mitral valve is normal in structure. Mild mitral regurgitation. Moderate to severe tricuspid regurgitation. Estimated pulmonary artery pressure of 35mmHg plus the right atrial pressure. There is no pericardial effusion. ��������������������������������������������� <ELECTRONICALLY SIGNED> ���������������������������������������� By: Rob Ash MD, [facility] ��������������������������������������������� 03/23/191625 25 1626 Rob Ash MD, FACC /INF
[2019-03-24] VITALS (28 sets, daily range): BP systolic 73–120; BP diastolic 30–62
--- NOTE | 2019-03-24 02:19 | NUR ---
GCS 14. OPENS EYES SPONTANEOUSLY. FOLLOWS COMMANDS. ORIENTED X2-3. PT WAS DROWSY AT BEGINNING OF SHIFT BUT IS BECOMING MORE ALERT OVERNIGHT. MURPHY. GENERALIZED WEAKNESS. AFEBRILE. AFIB ON MONITOR. SOFT BP. TOLERATING ROOM AIR. DENIES SOA. TOLERATING PO INTAKE. PT REQUIRES ASSISTANCE WITH MEALS (EG CUTTING UP FOOD). TWO SOFT BROWN BM THIS SHIFT. NO VISIBLE BLOOD IN STOOL. CLOUDY YELLOW URINE WITH SEDIMENT. MOISTURE ASSOCIATED DERMATITIS TO TRISH AREA, ABDOMENAL SKIN FOLDS, AND BENEATH BREASTS. INTERDRY FABRIC PLACED IN AFFECTED AREAS. PER PT'S , PT HAS SUCCESSFULLY USED INTERDRY AT HOME TO MANAGE THIS ISSUE. VITAL SIGNS AND ASSESSMENTS DOCUMENTED. WILL CONTINUE TO MONITOR.
[2019-03-24 04:49] LABS: CALCIUM 7.6 mg/dL (8.5-10.1); CREATININE 1.8 mg/dL (0.6-1.0); POTASSIUM 3.9 mmol/L (3.5-5.1)
[2019-03-24 04:58] LABS: PROTIME 47.9 Seconds (9.3-11.4)
[2019-03-24 05:05] LABS: APTT 100.5 Seconds (24.5-32.8); INR 4.6
[2019-03-24 05:12] LABS: HEMATOCRIT 33.4 % (37.0-47.0); MCH 29.7 pg (26.0-34.0); MCHC 33.1 g/dL (28.0-37.0); RBC 3.71 mil/uL (4.20-5.00)
--- NOTE | 2019-03-24 11:18 | NUR ---
Pt is currently in ICU. Supervisor [employer] visited with the pt and her spouse Frantz at bedside. The pt is weak but able to answer assessment questions. The pt lives at home with her spouse in a single story home. They have a ramp to enter the home. She has a w/c, rwalker, BSC, lift chair, and bath bench. She is normally able to walk around the home and transfer with the rwalker;however over the past week her family has had to help her to the commode and she has been too weak to walk. Her pcp is Dr. Mccauley. She has hh approx one month ago through [facility] and would like to use them again if needed. They are receptive to SNF or acute rehab pending the care team recommendations. The pt reports her dtr Lisa is involved and very supportive. Spokespersons contacts are Saurabh and residential mortgage underwriter verified their contact numbers. Cm role introduced. Will follow for possible HH, SNF or rehab referrals.
[2019-03-24 11:32] LABS: ABSOLUTE RETIC COUNT 0.0476 10^6/uL; OBSERVED RETIC COUNT 1.28 % (0.6-2.6)
[2019-03-24 15:10] LABS: URINE BILIRUBIN NEGATIVE (Negative); URINE BLOOD 3+ (Negative); URINE CLARITY CLOUDY; URINE COLOR YELLOW; URINE GLUCOSE-RANDOM* NEGATIVE (Negative); URINE KETONES TRACE (Negative); URINE LEUKOCYTES TRACE (Negative); URINE NITRITE NEGATIVE (Negative); URINE PROTEIN (DIPSTICK) 2+ (Negative); URINE SPECIFIC GRAVITY 1.025 (1.005-1.035); URINE UROBILINOGEN 0.2 E.U./dl (0.2-1.0)
[2019-03-24 15:21] LABS: CASTS None Seen /LPF (None Seen); CRYSTALS None Seen /LPF (None Seen); SQUAMOUS 0-3 Few /LPF (0-3); URINE RBC >20 Many /HPF (0-2)
[2019-03-24 15:22] LABS: BACTERIA 1-9 Few /HPF (None Seen); URINE WBC 0-5 Rare /HPF (0-5)
--- NOTE | 2019-03-24 15:48 | NUR ---
patient daughter removed patients rings and took them with her. Spouse was in the room and asked for a cup, then left them with patients daughter. See signed sheet with descriptions in the patients chart. Patient oriented and aware of daughter taking rings.
--- NOTE | 2019-03-24 17:56 | HC ---
[facility] [place] [place] [address] CONSULTATION Name: ANAMIKA MEEK Room #: [facility] IN M.R.#: [id number] Admission: 03/22/19 ������������������ Attend Phys: Aleksey Mccormack DO Discharge: ������������������ Date of : 49 Report #: [id number] THIS REPORT FOR: //name// CC: Aleksey Bella DATE OF SERVICE: 03/23/2019 PULMONARY CONSULTATION PRIMARY CARE PHYSICIAN: Buddy Bella MD REFERRING PHYSICIAN: Dr. Mccormack. REASON FOR REFERRAL: "Myxedema coma" sepsis. HISTORY OF PRESENT ILLNESS: The patient is a 73-year-old white female who was brought to the ER with weakness. She was also reported to have diarrhea along with some bright red blood per rectum. Pulmonary consultation was requested regarding possible myxedema coma. The patient was recently hospitalized in October for heart failure. Family notes that ever since then, she has had trouble with weakness. Her weakness became progressively worse over the past several days. With worsening symptoms, she was brought to the Emergency Room. In the ER, the patient was found to be borderline hypotensive. She was at one point hypothermic with a temperature of 92 degrees Fahrenheit. Currently, she is normothermic. Blood pressure has improved to systolic around 90s. She is awake, but somewhat confused. She does not appear to be in distress. The patient also had trouble with hypothyroidism. TSH was recently around 10. Her Synthroid dose was increased. She is currently taking 200 mcg once a day. Other pertinent laboratory data includes INR of 9.2. Vitamin K was given in the ER. She is on Pradaxa for atrial fibrillation. The patient also has a history of MRSA diskitis with bacteremia. She is currently on doxycycline chronically. The patient has a history of rectal bleed in the past. The patient was to have a colonoscopy in the outpatient. PAST MEDICAL HISTORY: As mentioned above including history of atrial fibrillation, status post cardioversion, lower extremity vela, hypertension, hypothyroidism, depression, chronic anemia, history of squamous cell cancer [address] [address] CONSULTATION Name: ANAMIKA MEEK Colby Room #: [address] [place] [address] IN M.R.#: [id number] Admission: 03/22/19 ������������������ Attend Phys: Aleksey Mccormack DO Discharge: ������������������ Date of : 49 Report #: [id number] removed from the right forearm in 2013, MRSA bacteremia in 2013, diskitis in 2013 with chronic infection. PAST SURGICAL HISTORY: Tonsillectomy, right total hip replacement, right total knee replacement, skin resection for squamous cell cancer as mentioned above, cholecystectomy. ALLERGIES: TORADOL, WHICH CAUSES PRURITUS, LATEX SENSITIVITY, HYDROCODONE MAKES THE PATIENT ANXIOUS, ADHESIVE TAPE CAUSES SKIN TEARS. HOME MEDICATIONS: List reviewed. This includes melatonin 5 mg once a day, multivitamins once a day, Colace 100 mg p.o. b.i.d., Zantac 150 mg p.o. b.i.d., Synthroid 200 mcg once a day, Neurontin 300 mg t.i.d., Effexor XR 75 mg once a day, metoprolol 50 mg once a day, Xanax 1 mg p.o. at bedtime, Pradaxa 150 mg p.o. b.i.d., Lasix 40 mg once a day, K-Dur 20 mEq b.i.d., doxycycline 100 mg p.o. b.i.d. FAMILY HISTORY: Noncontributory. SOCIAL HISTORY: Denies any tobacco or alcohol use. REVIEW OF SYSTEMS: As mentioned above, otherwise deferred as the patient is somewhat confused. PHYSICAL EXAMINATION: VITAL SIGNS: Temperature is 97.6 degrees Fahrenheit, pulse is 83, respiratory rate is 17, blood pressure is 120/41 mmHg, low systolic was around 83 mmHg in the ER, saturation 92%. HEENT: Normocephalic, atraumatic. NECK: Supple without lymphadenopathy or thyromegaly. CHEST: Breath sounds are fair due to poor effort. No obvious rales or wheezes. CARDIOVASCULAR: Normal S1, S2. There are no murmurs or gallop. There is no JVD. There is no carotid bruit. Pulses are 2+/4+ bilaterally. ABDOMEN: Soft, nontender, obese. No masses felt. GENITOURINARY: Deferred. RECTAL: Deferred. EXTREMITIES: 1+ edema bilaterally, chronic dermatitis changes are noted in the lower extremities with some scars. NEUROLOGIC: The patient is incoherent at this time. Otherwise, no unilateral weakness. Chest x-ray shows mild right lower lobe infiltrate, questionable left lower lobe infiltrate or atelectasis, cardiomegaly. CT head was unremarkable. Echocardiogram showed normal LV function, ejection fraction 55%, right ventricle is dilated. Both atria dilated. Pulmonary artery pressure measuring 35 mmHg. Abdominal ultrasound is a limited exam, otherwise unremarkable. C. difficile by [facility] [address] [place] [address] CONSULTATION Name: ANAMIKA MEEK Room #: 241-P ADM IN [place]#: [id number] Admission: 03/22/19 ������������������ Attend Phys: Aleksey Mccormack, Discharge: ������������������ Date of : 49 Report #: [id number] PCR is negative. Procalcitonin level is 0.1. C-reactive protein 130. Lactic acid is 1.5. INR is 9.2. Sodium 141, potassium 4.3, chloride 106, CO2 is 32, BUN is 33, creatinine is 1.7. Liver enzymes are mildly elevated. WBC 6700, hemoglobin 11.8. Repeat INR is 5.6, albumin 1.4. IMPRESSION: 1. Progressive weakness, diarrhea in this 73-year-old white female. Chest x-ray shows patchy bilateral lower lobe infiltrates. She has, by report, bright red blood per rectum. Hemoglobin is 11.8. She has borderline hypotension. She was hypothermic while in the ER. INR on admission was 9.2 and there is a history of hypothyroidism with the TSH being 4. Suspect severe sepsis, possible pneumonia, possible ongoing bacteremia related to methicillin-resistant Staphylococcus aureus diskitis with diarrhea, cannot rule out colitis. 2. Bright red blood per rectum by report. She has a history of gastrointestinal bleed in the past. Hemoglobin is stable. Elevated INR is likely contributing. Gastroenterology has been consulted. 3. Hypothyroidism. TSH is elevated, but only mildly, on Synthroid supplements. 4. Acute on chronic kidney disease, baseline creatinine had been around 1.6. 5. Chronic diastolic heart failure. Echocardiogram noted. Right ventricle and both atria are dilated. Pulmonary artery pressure only measured at 35 mmHg. The patient does have obesity, question sleep related breathing disorder. Sleep study, if not already performed, doubt pulmonary embolus. 6. Chronic atrial fibrillation. 7. History of methicillin-resistant Staphylococcus aureus diskitis, on chronic minocycline supression therapy. 8. Chronic anticoagulation. We will need to hold Pradaxa for now. INR has been reversed with vitamin K earlier today. RECOMMENDATIONS: Would recommend sepsis protocol, broad spectrum antibiotics to cover possible pneumonia. We will also need to consider other sources including history of chronic diskitis, recent lower extremity wounds. Gastroenterology consult regarding gastrointestinal bleed. Deep venous thrombosis and gastrointestinal prophylaxis is indicated. Would recommend ICU monitoring. Discussed with the patient's family along with nursing. Critical care 1 hour. Thank you for this consultation. ��������������������������������������������� <ELECTRONICALLY SIGNED> ���������������������������������������� By: Felix Delgadillo MD ��������������������������������������������� 03/24/19 1756 1926 0003 Felix Delgadillo MD /nt
--- NOTE | 2019-03-24 19:28 | NUR ---
PATIENT ASSESSMENT AND VITAL SIGNS DOCUMENTED. PLAN OF CARE REVIEWED WITH PATIENT AND FAMILY. NURSE EXPLAINED ALL TREATMENTS AND MEDICATIONS GIVEN. NURSE EXPLAINED PHYSICIANS REPORTS AND RECOMMENDATIONS. WOUND CARE ROUNDED AND EXPRESSED TREATMENT PLAN. REPORT GIVEN TO MILK HANDLER RN FOR CONTINUATION OF CARE.
[2019-03-25] VITALS (63 sets, daily range): BP systolic 81–133; BP diastolic 29–71
--- NOTE | 2019-03-25 01:17 | NUR ---
GCS 15. A&O X3-4. FC, MURPHY. FORGETFUL. CALM, COOPERATIVE. GENERALIZED WEAKNESS, ATHOUGH STRENGTH HAS IMPROVED SINCE ADMISSION. AFIB ON MONITOR. HYPOTENSIVE AT TIMES. TOLERATING ROOM AIR. DENIES SOA. POOR APPETITE. REQUIRES ASSISTANCE WITH MEALS. SOFT BROWN BM. NO BLOOD VISIBLE IN STOOL. CLOUDY, TEA COLORED URINE WITH SEDIMENT. MOISTURE ASSOCIATED DERMATITIS TO TRISH AREA, ABDOMENAL SKIN FOLDS, AND BENEATH BREASTS. INTERDRY FABRIC PLACED IN AFFECTED AREAS. TRISH-ANAL SKIN TEAR. ZINC BARRIER CREAM APPLIED. PT REFUSED TO ALLOW RN TO PHOTOGRAPH WOUNDS. HOWEVER, WOUNDS ARE OTHERWISE DOCUMENTED PER PROTOCOL. PT IS CONCERNED ABOUT RESUMING HOME MEDS, ESPECIALLY EFFEXOR XR. THE PT IS CURRENTLY RECEIVING ZYVOX. THEREFORE, EFFEXOR IS CONTRAINDICATED AT THIS TIME. SPOKE TO PHARMACY REGARDING THIS MATTER. PT FREQUENTLY BLEEDS FROM/NEAR HER CENTRAL LINE SITE, REQUIRING REPEATED DRESSING CHANGES. WHILE IT IS A SMALL VOLUME OF BLOOD, IT IS ENOUGH TO SOIL THE DRESSING. NOTE THAT PT HAS HAD CRITICALLY HIGH PTT AND INR THIS ADMISSION. VITAL SIGNS AND ASSESSMENTS DOCUMENTED. WILL CONTINUE TO MONITOR.
[2019-03-25 04:30] LABS: CALCIUM 7.9 mg/dL (8.5-10.1); CREATININE 1.7 mg/dL (0.6-1.0); POTASSIUM 3.6 mmol/L (3.5-5.1)
[2019-03-25 04:40] LABS: HEMATOCRIT 33.3 % (37.0-47.0); HEMOGLOBIN 11.1 gm/dL (12.0-15.0); MCH 29.8 pg (26.0-34.0); MCHC 33.4 g/dL (28.0-37.0); RBC 3.74 mil/uL (4.20-5.00); RDW 15.6 % (10.5-14.5); WBC 6.2 thou/uL (4.0-11.0)
[2019-03-25 05:38] LABS: FIBRINOGEN 147.6 mg/dL (210-360); PROTIME 28.6 Seconds (9.3-11.4)
[2019-03-25 05:39] LABS: APTT 66.7 Seconds (24.5-32.8); INR 2.8
--- NOTE | 2019-03-25 08:52 | HC ---
[facility] [place] [address] CONSULTATION Name: ANAMIKA MEEK Room #: 241-P [facility] IN .R.#: [id number] Admission: 03/22/19 ������������������ Attend Phys: Aleksey Mccormack DO Discharge: ������������������ Date of : 49 Report #: [id number] THIS REPORT FOR: //name// CC: Aleksey Bella DATE OF SERVICE: 03/24/2019 ATTENDING PHYSICIAN: Emanuel Anne MD. REASON FOR CONSULTATION: Hypotension, hypothermia, malaise, possible sepsis. HISTORY OF PRESENT ILLNESS: A 73-year-old white woman who is admitted through the Emergency Room with history of not doing well for a few weeks, ends up lately even worse with significant weakness and malaise. In the Emergency Room, she is found to be hypotensive and hypothermic. She receives hydrocortisone and broad-spectrum antibiotic coverage. The patient is transferred to the Intensive Care Unit. DRUG ALLERGIES: KETOROLAC, LATEX, HYDROCODONE, OXYCODONE, ESSENTIALLY MOST NARCOTICS. HOME MEDICATIONS: Include melatonin, multivitamins, docusate, ranitidine, acetaminophen, levothyroxine, gabapentin, venlafaxine, metoprolol, alprazolam, dabigatran (Pradaxa) 150 mg p.o. b.i.d., Lasix, doxycycline 100 mg p.o. b.i.d., multivitamins with iron and minerals. PAST MEDICAL HISTORY: Chronic atrial fibrillation, on Pradaxa. History of acute cholecystitis, requiring laparoscopic cholecystectomy. History of high-grade bacteremia with MRSA, complicated by lumbar spine diskitis and septic arthritis, right total hip replacement, on chronic suppression with Minocin and/or doxycycline. The Minocin was changed to doxycycline in view of skin discoloration. She has a history of skin cancer on the legs. Obesity. Multiple drug allergies. SOCIAL HISTORY: See H and P, old records. FAMILY HISTORY: See H and P, old records. REVIEW OF SYSTEMS: The patient poorly responsive in the Emergency Room and most of the information is gathered through conversation with the patient's daughter and who were present in the Emergency Room. PHYSICAL EXAMINATION: GENERAL: Overweight, obese white woman. VITAL SIGNS: Temperature 92.5, requiring rewarming. Subsequently, 97.3. Blood [address] [address] CONSULTATION Name: ANAMIKA MEEK Room #: [address] [place] [address] IN M.R.#: [id number] Admission: 03/22/19 ������������������ Attend Phys: Aleksey Mccormack, Discharge: ������������������ Date of : 49 Report #: [id number] pressure is low 92/20, respirations 16. Pulse 83, intermittently irregularly irregular. HEENMT: Within range. NECK: Supple. LUNGS: Crackles left lung base posteriorly. HEART: S1, S2. No gallop or murmur. ABDOMEN: Obese, soft. No masses or megaly. PELVIC AND RECTAL: Deferred. EXTREMITIES: Reveal hyperpigmentation of the skin of legs secondary to her chronic Minocin treatment. NEUROLOGIC: Grossly within normal limits. LABORATORY DATA: Sodium 141, potassium 4.3, chloride 106, CO2 32, BUN 33, creatinine 1.7, glucose 120, alkaline phosphatase 221 U/L, SGPT 25, albumin 1.4 g/dL. Free T4 1.4, free T3 of 0.95. C-reactive protein 130. On 01/08/2014 was 60.6. Protime initially 94. Fibrinogen 185, which is low. WBC on admission is 8300, hemoglobin 12.7 g/dL, platelets 194,000. White blood cell count differential revealed 67% segmented neutrophils, 20% lymphocytes, 10% monocytes. Sedimentation rate 21 mm per hour. On 01/08/2014, was 75 mm per hour. TSH 4.114, mildly elevated. Cortisol baseline and post Cortrosyn within normal range. C. difficile assay negative. MRSA screen pending. Urinalysis reveals 3+ blood, positive nitrite. Microscopic exam revealed pyuria, microscopic hematuria, many bacteria. ABGs not done. MICROBIOLOGY DATA: Cultures were obtained of urine, sputum and blood and those remain negative at the time of this dictation. The stool was positive for occult blood. RADIOLOGY EVALUATION: Chest x-ay revealed cardiomegaly and possible bibasilar infiltrate, left greater than right. Abdominal ultrasound revealed liver of normal size without focal lesions. No evidence of intrahepatic or extrahepatic bile duct dilatation. Kidneys of normal size. Status post cholecystectomy. CT scan of the head revealed ventricles and sulci within normal limits. No midline shift, no acute findings. There is hyperostosis frontalis interna. ASSESSMENT: 1. Malaise, hypotension, hypothermia of undetermined etiology. Entertained possibility of urinary tract infection versus left lower lobe pneumonia. 2. Acute kidney injury secondary to hypotension. 3. Chronic atrial fibrillation, on Pradaxa. 4. History of methicillin-resistant Staphylococcus aureus high-grade bacteremia complicated by lumbar spine diskitis and infection of right total hip replacement, on chronic suppression with doxycycline. SUGGESTIONS: Recommend linezolid 600 mg IV twice daily, Zosyn 3.37 grams IV every 8 hours, Levaquin 750 IV every 48 hours, hydrocortisone 100 mg IV every [address] [address] CONSULTATION Name: ANAMIKA MEEK Room #: 241-P ADM IN .R.#: [id number] Admission: 03/22/19 ������������������ Attend Phys: Aleksey Mccormack DO Discharge: ������������������ Date of : 49 Report #: [id number] hours. Transferred to the ICU. Dr. Anne, thank you for requesting my suggestions. ��������������������������������������������� <ELECTRONICALLY SIGNED> ���������������������������������������� By: Brando Holguin MD ��������������������������������������������� 03/25/19 0852 1000 09 Brando Holguin MD /nt
[2019-03-25 14:13] LABS: BE(vivo) 2.1 mmol/L (-2 to +3); HCO3 27.6 mmol/L (22.0-26.0); PCO2 VENOUS 46.5 mmHg (41.0-51.0); PO2 VENOUS 39.8 mmHg (35.0-45.0)
--- NOTE | 2019-03-25 15:13 | NUR ---
WOUND CONSULT; ROUNDING WITH DR DARIUS CALVO TODAY. THE AREA OF CONCERN WAS A SMALL WOUND TO THE GLUTEAL CREASE. PINK WITH A SCANT AMOUT OF DRAINAGE. RECOMMENDATIONS; ZGUARD TO THIS AREA. RN PRESENT AND ASSISTING
--- NOTE | 2019-03-25 16:38 | NUR ---
ASSUMEE CARE @ 0700 03/25/19, PT ASSESSMENTS AND VSS COMPLETE PER ICU PROTOCOL. PT ALERT AND ORIENTED X 4, PT ABLE TO FOLLOW MOST SIMPLE COMMANDS TO HER ABILITY. PT IN AFIB ON THE MONITOR, ON LEVO GTT FOR BP MANAGEMENT, EDEMA PRESENT, SEE PROCESS INTERVENTIONS FOR SPECIFICS. PT ON RA, SATS IN THE HIGH 90'S, NO SIGNS OF SOA. PT ON A REGULAR DIET, APPETITE HAS IMPROVED DURING THIS SHIFT, ACCUCHECKS ACHS. HENNING IN PLACE, GOP NOTED, HEMATURIA PRESENT ORDERS TO FLUSH HENNING REGULARLY, PER DR BURNETTE. PHYSICAL THERAPY ABLE TO GET HER TO THE EDGE OF THE BED TODAY. PLAN OF CARE- CONT TO MONITOR.
--- NOTE | 2019-03-25 18:26 | NUR ---
VASCULAR ACCESS NURSE ROUNDING. CENTRAL LINE ACCESS IS APPROPRIATE FOR THIS PATIENT. SHE CONTINUES IN THE ICU ON SEVERAL IV MEDS INCLUDDING PRESSORS
[2019-03-26] VITALS (63 sets, daily range): BP systolic 96–136; BP diastolic 24–60
--- NOTE | 2019-03-26 01:12 | NUR ---
PT SLEEPING OFF/ON. AWAKENS EASILY. MURPHY, TRIES TO HELP TURN IN BED. MONITOR SHOWS AFIB. BP WNL WITH SBP>90. LEVOPHED REMAINS OFF. PPN INFUSING. UO ADEQUATE. PROGRESSING TOWARD GOALS, CONT PLAN OF CARE
[2019-03-26 06:15] LABS: ABSOLUTE NEUTROPHILS 4.4 thou/uL (1.4-8.2); BASOPHILS 0.1 % (0.0-2.0); HEMATOCRIT 31.4 % (37.0-47.0); HEMOGLOBIN 10.5 gm/dL (12.0-15.0); MCH 29.9 pg (26.0-34.0); MCHC 33.4 g/dL (28.0-37.0); MCV 89.5 fL (80.0-100.0); MONOCYTES 6.7 % (1.0-8.0); PLATELET COUNT 150 thou/uL (150-400); POLYS 81.2 % (36.0-66.0); RBC 3.51 mil/uL (4.20-5.00); RDW 16.2 % (10.5-14.5); WBC 5.4 thou/uL (4.0-11.0)
--- NOTE | 2019-03-26 06:28 | NUR ---
ASSUMED PATIENT CARE AT 0300. STARTED PATIENT BACK ON LEVO TO MAINTAIN A MAP>60. NO ACUTE EVENTS OCCURRED DURING THIS SHIFT. HOURLY ROUNDING COMPLETED. PATIENT REMAINS UNCHANGED ON PROGRESSING TOWARD GOAL.
[2019-03-26 06:38] LABS: ALBUMIN 1.9 g/dL (3.4-5.0); ANION GAP 5 mmol/L (7-16); BUN 36 mg/dL (7-18); CALCIUM 7.8 mg/dL (8.5-10.1); CHLORIDE 102 mmol/L (98-107); CO2 31 mmol/L (21-32); CREATININE 1.6 mg/dL (0.6-1.0); GLUCOSE 114 mg/dL (74-106); POTASSIUM 3.5 mmol/L (3.5-5.1); SGOT 44 U/L (15-37); SGPT 39 U/L (30-65); SODIUM 138 mmol/L (136-145); TOTAL BILIRUBIN 0.6 mg/dL (<0.1-1.0); TOTAL PROTEIN 5.7 g/dL (6.4-8.2); TROPONIN-I <0.06 ng/mL (<0.06)
--- NOTE | 2019-03-26 08:26 | HC ---
[facility] [place] [address] CONSULTATION Name: ANAMIKA MEEK Room #: 241-P [facility] IN M.R.#: [id number] Admission: 03/22/19 ������������������ Attend Phys: Aleksey Mccormack DO Discharge: ������������������ Date of : 47 Report #: [id number] THIS REPORT FOR: //name// CC: Aleksey Bella DATE OF SERVICE: 03/24/2019 CHIEF COMPLAINT: Sacral and intertriginous ulceration. HISTORY OF PRESENT ILLNESS: This is a 73-year-old female patient whom I have been asked to see with regard to wound care who is currently in ICU. The patient was admitted with fatigue and lethargy, poor oral intake. She does complain of pain in the skin folds of her groin and under her abdominal wall. She is not aware of any ulceration on her sacrum, although, it has been reported there. PAST MEDICAL HISTORY: Positive for history of atrial fibrillation. She has had previous vela to her legs. She has had previous basal cell carcinomas excised from her legs, hypothyroidism, hypertension, previous total right hip arthroplasty, history of depression, chronic anemia, right total knee arthroplasty, diskitis, previous cholecystectomy, and chronic kidney disease stage 3. SOCIAL HISTORY: Negative for alcohol or tobacco use. FAMILY HISTORY: Noncontributory. CURRENT MEDICATIONS: Include Melatonin, multivitamins, Colace, Zantac, Tylenol, Synthroid, Neurontin, Effexor, Topral XL, Xanax, Pradaxa, Lasix, K-Dur, doxycycline. ALLERGIES: ADHESIVE, TORADOL, HYDROCODONE, OXYCODONE. REVIEW OF SYSTEMS: Very limited due to the patient's level of alertness and 14-point review of systems would be negative or unobtainable other than that discussed in the history of present illness. PHYSICAL EXAMINATION: VITAL SIGNS: At this time include temperature 36.2, pulse 76, respiratory rate 13, blood pressure of 99/30. GENERAL: This is a chronically ill-appearing female patient who appears to be in minimal distress. HEENT: Head normocephalic. Nose and throat are clear. NECK: Supple. LUNGS: Diminished. [facility] [address] [place] [address] CONSULTATION Name: ANAMIKA MEEK Colby Room #: 241-P [facility] IN M.R.#: [id number] Admission: 03/22/19 ������������������ Attend Phys: Aleksey Mccormack DO Discharge: ������������������ Date of : 47 Report #: [id number] HEART: Irregular. ABDOMEN: Obese, soft, nontender. She has some skin breakdown in the folds in her groin and beneath her abdominal wall skin folds. These do not appear to be deep or infected at this time. Sacral region demonstrates stage 2 pressure ulcers to the sacral region that is superficial and linear and likely related to the skin folds present there. EXTREMITIES: Lower extremities show chronic stasis dermatitis and hyperpigmentation. Previous surgical sites appear to be well healed. NEUROLOGIC: The patient is alert. She does move all 4 extremities spontaneously. She is a little bit slow to respond to questioning. LABORATORY DATA: Includes a proBNP of 3166. Accu-Chek is 109. Sodium 140, potassium 3.9, chloride 98, CO2 of 30, BUN 29, creatinine 1.8, glucose 117, calcium is 7.6. INR is 4.6. White blood cell count 5.0 and the hemoglobin 11.0. CLINICAL IMPRESSION: 1. Stage 2 pressure ulceration of the sacral region. 2. Intertrigo in groin and skin folds. 3. Lethargy and weakness, etiology is indeterminant. 4. Morbid obesity. 5. Sepsis. RECOMMENDATIONS: At this point in time, the patient placed on low air loss mattress and keep q. 2 h turning and repositioning, zinc oxide barrier cream to the sacral region, InterDry Ag to the abdominal and groin skin folds, aggressive nutritional support. I appreciate being asked to see her in consultation. ��������������������������������������������� <ELECTRONICALLY SIGNED> ���������������������������������������� By: Williams Ramires MD ��������������������������������������������� 03/26/19 0826 1610 1943 Williams Ramires MD /nt
--- NOTE | 2019-03-26 11:45 | NUR ---
PATIENT SEEN BY DR. GARG 03/25/19 FOR ACUTE REHAB CONSULT. AT THIS TIME UNABLE TO DETERMINE IF PATIENT IS AN APPROPRIATE REHAB CANDIDATE. WILL CONTINUE TO FOLLOW AND SEE HOW PATIENT FUNCTIONS IN THERAPIES OVER WEEKEND AND FRIDAY. THANK YOU FOR THIS REFERRAL.
--- NOTE | 2019-03-26 19:30 | NUR ---
ASSUMED CARE AT 0700. PT HAD VERY POOR APPETITE FOR BREAKFAST AND ONLY ATE A FEW SMALL BITES. RENAL DR GAVE ORDERS TO STOP PPN AND TO ADD SUPPLEMENTS TO EACH MEAL TRAY. PT HAD FAMILY FRIEND SIT WITH HER LATE MORNING AND ALL AFTERNOON. FRIEND WAS ABLE TO REALLY ENCOURAGE PT TO EAT HER LUNCH AND DRINK HER ENSURE. PT THEN ATE 75% OF HER DINNER ON HER OWN. PT IS ABLE TO DO A LOT BUT DOES NEED A LOT OF ENCOURAGEMENT. PT WAS STARTED ON LASIX BID AND HAD 2300CC OF URINE OUTPUT AFTER LASIX. PT SAT UP TO EDGE OF BED WITH MAX ASSIST OF PT AND RN. PT IS MAX 3 ASSIST TO TURN AND REPOSITION. PT IS INCONTINENT OF BOWEL AND HAD 2 BM'S THIS SHIFT. PT DID TELL RN AFTER BM'S BUT DOES NOT SEEM TO KNOW BEFORE HAND TO ASK FOR BED BAUTISTA. VSS. PT REMAIN'S ON LEVOPHED GTT. PT STARTED SHIFT AT 2 MICS, WAS TITRATED DOWN TO 1 TYSON, ONLY TO BE BUMPED BACK UP TO 2 MICS WHERE SHE REMAINED THE REST OF THE SHIFT.
[2019-03-27] VITALS (39 sets, daily range): BP systolic 86–123; BP diastolic 33–64
[2019-03-27 05:07] LABS: HEMATOCRIT 31.2 % (37.0-47.0); HEMOGLOBIN 10.4 gm/dL (12.0-15.0); MCHC 33.5 g/dL (28.0-37.0); MCV 89.5 fL (80.0-100.0); RBC 3.48 mil/uL (4.20-5.00); RDW 16.2 % (10.5-14.5); WBC 7.8 thou/uL (4.0-11.0)
[2019-03-27 05:15] LABS: ALBUMIN 2.7 g/dL (3.4-5.0); CALCIUM 8.1 mg/dL (8.5-10.1); CREATININE 1.6 mg/dL (0.6-1.0)
[2019-03-27 05:18] LABS: POTASSIUM 2.5 mmol/L (3.5-5.1)
--- NOTE | 2019-03-27 06:05 | NUR ---
ASSUMED PATIENT CARE AT 1900. PATIENT AAOX4, ON ROOM AIR, AND IS ON LEVOPHED TO KEEP MAP >60. PATIENT IS PLEASANT TO TALK TO. LEVOPHED TITRATED UP TO 4 MCG/MIN. NO ACUTE EVENTS OCCURRED DURING THIS SHIFT. POTASSIUM DROPPED TO 2.5 AND REPLACEMENT POTASSIUM GIVEN. HOURLY ROUNDING COMPLETED. PATIENT REMAINS UNCHANGED ON PROGRESSING TOWARD GOAL.
[2019-03-28] VITALS (63 sets, daily range): BP systolic 101–143; BP diastolic 32–59
--- NOTE | 2019-03-28 04:27 | NUR ---
ASSUMED CARE OF PT. AT 1900. PT. IS CALM AND COOPERATIVE, DENIES PAIN. PT. PLACED ON 2L O2 VIA NC OVERNIGHT BECAUSE OF LOW SPO2 WHEN ASLEEP. PT. TITRATED UPWARD ON LEVOPHED FOR CONTINUAL LOW BP. FECAL MANAGEMENT IS IN PLACE WITH SMALL AMOUNT OF DRAINAGE. ADEQUATE URINARY OUTPUT. PLAN OF CARE IS TO CONTINUE TO MONITOR HEMODYNAMIC STABILITY WITH LEVOPHED. WILL CONTINUE TO MONITOR.
[2019-03-28 05:16] LABS: HEMATOCRIT 32.4 % (37.0-47.0); HEMOGLOBIN 10.8 gm/dL (12.0-15.0); MCH 29.9 pg (26.0-34.0); MCHC 33.4 g/dL (28.0-37.0); MCV 89.4 fL (80.0-100.0); RBC 3.62 mil/uL (4.20-5.00)
[2019-03-28 05:18] LABS: CALCIUM 8.2 mg/dL (8.5-10.1); CREATININE 1.6 mg/dL (0.6-1.0)
[2019-03-28 05:19] LABS: POTASSIUM 2.8 mmol/L (3.5-5.1)
[2019-03-28 05:25] LABS: INR 1.5
--- NOTE | 2019-03-28 10:42 | HC ---
[facility] [place] [place] [address] CONSULTATION Name: ANAMIKA MEEK [facility]: [facility] IN M.R.#: [id number] Admission: 03/22/19 ������������������ Attend Phys: Aleksey Mccormack DO Discharge: ������������������ Date of : 47 Report #: [id number] THIS REPORT FOR: //name// CC: Aleksey Bella REASON FOR CONSULTATION: Elevated creatinine. HISTORY OF PRESENT ILLNESS: This is a very well-known patient to us. She is a chronic kidney disease patient who sees Dr. Quinones in my clinic. She is known to have hypothyroidism and hypertension. She has chronic diskitis of her back. She runs a baseline creatinine anywhere from 1.4-1.5. Family brought the patient and she has not been herself for about a week. They describe more lethargy and weakness. The patient slipped to the ground when the daughter was helping her to get back to a chair. EMS was called. Family describes decreased oral intake, diarrhea, weakness, but that has been progressively getting worse. Family also described that the patient was treated for urinary tract infection recently with Bactrim. The patient was on the hypotensive side. Creatinine was 1.6 and has risen up slightly to 1.7. She was found to be extremely coagulopathic with an elevated INR while taking Pradaxa for atrial fibrillation. She suffers from chronic lower extremity edema, diastolic heart failure, AFib. She is currently in the ICU with multiple consultants in care for her current issues. Consult was placed for us to manage her chronic kidney disease. As I stated above, she had seen Dr. Quinones in the clinic back in January of this year and at that time her creatinine was 1.4. PAST MEDICAL HISTORY: 1. Chronic kidney disease. 2. Atrial fibrillation. 3. Hypertension. 4. Hypothyroidism. 5. Lumbar diskitis. 6. Cholecystitis. 7. Chronic lower extremity edema and wound. 8. Hypothyroidism. 9. Right total hip replacement. 10. Depression. 11. Methicillin-resistant Staphylococcus aureus bacteremia. MEDICATIONS: 1. Potassium. 2. Neurontin. 3. Levoxyl. 4. Tylenol. 5. Multivitamins. 6. Effexor. 7. Doxycycline. [facility] [address] [place] [address] CONSULTATION Name: ANAMIKA MEEK Colby Room #: [facility] IN ..#: [id number] Admission: 03/22/19 ������������������ Attend Phys: Aleksey Mccormack DO Discharge: ������������������ Date of : 47 Report #: [id number] 8. Pradaxa. 9. Metoprolol. 10. Voltaren gel. ALLERGIES: HYDROCODONE. FAMILY HISTORY: Significant for diabetes mellitus and hypertension. SOCIAL HISTORY: No drug or alcohol abuse. REVIEW OF SYSTEMS: GENERAL: Significant for weakness and lethargy. CARDIOVASCULAR: Significant for dyspnea on exertion and swelling. PULMONARY: No cough or hemoptysis, but she does have dyspnea on exertion. GASTROINTESTINAL: Diarrhea and decreased oral intake. GENITOURINARY: Recently treated for urinary tract infections. NEUROLOGICAL: Lethargy and weakness, but no seizure activities. SKIN: Rash on both lower extremities. PHYSICAL EXAMINATION: VITAL SIGNS: Temperature 36.3 and blood pressure was 108/65 on 2 mcg of Levophed. HEAD AND NECK: Right central line. CHEST: Morbidly obese with decreased air entry. CARDIOVASCULAR: Distant S1 and S2. ABDOMEN: Morbidly obese with abdominal wall edema. EXTREMITIES: Lower extremities, +2 edema. LABORATORY VALUES: Reviewed. The patient's white blood cell count was 6.2. Sodium 140, BUN is 35, creatinine is 1.7, potassium is 3.6. ASSESSMENT, IMPRESSION: 1. Chronic kidney disease. 2. Hypertension. 3. Sepsis. 4. Encephalopathy. 5. Questionable gastrointestinal bleeding. 6. Abnormal INR. 7. Diastolic heart failure. 8. Methicillin-resistant Staphylococcus aureus. 9. Diskitis. 10. Chronic lower extremity edema. 11. Hypothyroidism. PLAN: 1. From the renal perspective, the patient's recent worsening of the creatinine [address] [address] CONSULTATION Name: ANAMIKA MEEK Room [facility]: [facility] IN [facility]#: [id number] Admission: 03/22/19 ������������������ Attend Phys: Aleksey Mccormack DO Discharge: ������������������ Date of : 47 Report #: [id number] is due to hypotension. She runs a baseline creatinine of around 1.4-1.5 in the clinic. Currently, her hemodynamics are being rectified appropriately. As noted, the patient has low albumin and we will utilize some albumin to better help her blood pressure. We will try to wean off the Levophed. 2. Septic workup has been initiated. 3. Continue to monitor her urine output. 4. Coagulopathy is being addressed by the Hematology team. 5. She is grossly fluid overloaded and will need diuresis once more stable. 6. IV is being adjusted by the Infectious Disease team. 7. Hypothyroidism is being addressed by the primary team. ��������������������������������������������� <ELECTRONICALLY SIGNED> ���������������������������������������� By: Lissett Carrizales MD ��������������������������������������������� 03/28/19 1042 26 Lissett Carrizales MD /nt
[2019-03-29] VITALS (45 sets, daily range): BP systolic 98–144; BP diastolic 29–128
--- NOTE | 2019-03-29 06:00 | NUR ---
pt has slept most of noct. remains in a fib ratye 90 to 100 miladys gtt at 50 mcg keep map of 65. bathed. will cont to monitor.
[2019-03-29 06:22] LABS: ALBUMIN 2.4 g/dL (3.4-5.0); CALCIUM 8.1 mg/dL (8.5-10.1); CREATININE 1.6 mg/dL (0.6-1.0); PHOSPHORUS 1.2 mg/dL (2.5-4.9)
--- NOTE | 2019-03-29 11:14 | NUR ---
WOUND CARE FOLLOW UP; ROUNDING WITH FRANCISCO CHEMICAL PRODUCTION MACHINE OPERATOR AND LUIS RN. THE ABDOMINAL SKIN FOLDS LOOK MUCH BETTER. THE PATIENT BOTTOM IS BETTER WELL. PATIENTS HAS BLACK LOOSE STOOLS WITH A FECAL MGMT SYSTEM IN PLACE. FAMILY PRESENT AT THIS TIME. CONTINUE CURRENT POC DISCUSSED WITH TORRI
--- NOTE | 2019-03-29 17:18 | NUR ---
SW reviewed chart and spoke with nursing and attending physician. Pt is slowly progressing towards goals for discharge. [facility] is following for possible admission to inpt acute rehab. Pt may be too low level for acute rehab. SW met with pt and dtr at bedside to discuss post-acute plans. Pt has been to [facility] in the past and that would be their preference for a skilled facility. airport planner to send referral to [facility] tomorrow. SW notified [facility] liaison. Lengthy discussion with pt's dtr regarding plan of care. Pt's dtr voiced concern regarding cognitvive status. SW discussed concerns with attending physician. SW is following to assist as needed with discharge planning.
[2019-03-30] VITALS (43 sets, daily range): BP systolic 101–132; BP diastolic 34–85
--- NOTE | 2019-03-30 01:29 | NUR ---
GCS 15. A&O X3. FC, JEFFREY. DOWSY. FLAT AFFECT. SPEAKS VERY LITTLE, MAINLY IN RESPONSE TO Y/N QUESTIONS. GENERALIZED WEAKNESS. DEENA GTT AT 10 MCG/MIN. MAINTAINING MAP > 60. O2 SAT > 92% ON 2L PER NC HS. DENIES SOA. TOLERATING PO INTAKE. POOR APPETITE. REQUIRES ASSISTANCE AND ENCOURAGEMENT DURING MEALS. FECAL MANAGEMENT SYSTEM IN PLACE. ADEQUATE URINE OUTPUT THIS SHIFT. MOISTURE ASSOCIATED DERMATITIS TO TRISH AREA, ABDOMENAL SKIN FOLDS, AND BENEATH BREASTS. INTERDRY PLACED IN AFFECTED AREAS. SKIN TEAR ADJACENT TO ANUS. ZINC BARRIER CREAM APPLIED. VITAL SIGNS AND ASSESSMENTS DOCUMENTED. WILL CONTINUE TO MONITOR.
[2019-03-30 05:53] LABS: ALBUMIN 2.2 g/dL (3.4-5.0); CALCIUM 8.4 mg/dL (8.5-10.1); CREATININE 1.5 mg/dL (0.6-1.0); PHOSPHORUS 2.7 mg/dL (2.5-4.9); POTASSIUM 3.7 mmol/L (3.5-5.1)
[2019-03-30 09:50] LABS: HEMATOCRIT 28.8 % (37.0-47.0); HEMOGLOBIN 9.7 gm/dL (12.0-15.0); MCHC 33.5 g/dL (28.0-37.0); MCV 89.7 fL (80.0-100.0); RBC 3.22 mil/uL (4.20-5.00); RDW 16.7 % (10.5-14.5); WBC 8.1 thou/uL (4.0-11.0)
--- NOTE | 2019-03-30 09:59 | NUR ---
FAXED REFERRAL TO [facility] OP SPOKE WITH ERICK IN ADM SHE RECEIVED REFERRAL AND WILL REVIEW. DCP TO FOLLOW.
--- NOTE | 2019-03-30 11:46 | NUR ---
WOUND CARE FOLLOW UP; ROUNDING WITH FRANCISCO LOG RAFTER AND LUIS POLICE DETENTION ATTENDANT. THE ABDOMENAL FOLDS WERE ASSESSED AND WERE MUCH IMPROVED WELL THE ESCORATION TO THE BUTTOCKS. CONTINUE CURRENT PLAN; NO CHANGES DISCUSSED WITH RN
--- NOTE | 2019-03-30 17:03 | NUR ---
SW reviewed chart and spoke with nursing and attending physician. Pt is slowly progressing towards goals for discharge. [facility] is following pt for admission to inpt acute rehab if pt qualifies. service planner faxed referral over to [facility] for review. [facility] if [facility] is not an option. SW met with pt and spouse at bedside to discuss discharge plan. Pt more alert today and able to communicate. Pt and spouse are agreeable with either [facility] or [facility]. Pt's dtr was at bedside this morning during rounds and able to visit with physician. Neuro consulted and is pending at this time. SHARAN is following to assist as needed with discharge planning.
[2019-03-31] VITALS (24 sets, daily range): BP systolic 102–129; BP diastolic 33–57
--- NOTE | 2019-03-31 00:19 | NUR ---
GCS 15. ORIENTED X3. DROWSY, FLAT AFFECT, SLOW TO RESPOND. DOES NOT SPEAK MUCH. GENERALIZED WEAKNESS. AFIB ON MONITOR. MAINTAINING MAP > 60 WITHOUT VASOPRESSORS. O2 SAT > 92% ON 2L PER NC. PT HAS POOR APPETITE. REQUIRES ASSISTANCE AND ENCOURAGEMENT DURING MEALS. INCONTINENT OF STOOL. HENNING TO DD. ADEQUATE URINE OUTPUT. SEE WOUND DOCUMENTATION. VITAL SIGNS AND ASSESSMENTS DOCUMENTED. WILL CONTINUE TO MONITOR.
[2019-03-31 05:08] LABS: HEMATOCRIT 28.2 % (37.0-47.0); HEMOGLOBIN 9.5 gm/dL (12.0-15.0); MCH 29.9 pg (26.0-34.0); MCHC 33.6 g/dL (28.0-37.0); MCV 88.9 fL (80.0-100.0); RBC 3.18 mil/uL (4.20-5.00); RDW 16.5 % (10.5-14.5); WBC 6.3 thou/uL (4.0-11.0)
[2019-03-31 05:19] LABS: ALBUMIN 2.2 g/dL (3.4-5.0); CALCIUM 8.1 mg/dL (8.5-10.1); CREATININE 1.6 mg/dL (0.6-1.0); PHOSPHORUS 2.9 mg/dL (2.5-4.9); POTASSIUM 3.7 mmol/L (3.5-5.1)
--- NOTE | 2019-03-31 09:06 | NUR ---
AAOX2 NAME AND PLACE. ANSWERS QUESTIONS SLOWLY AND SPEAKS VERY LITTLE WORDS. FLAT AFFECT. INCONTINENT OF LIQUID SOFT STOOL. BUTTOCKS VERY RED - Z-GAURD APPLIED. FED BREAKFAST WITH 50% OF MEAL CONSUMED. VERY PLEASANT. HENNING WITH LIGHT PINK CLEAR URINE OUTPUT.
[2019-03-31 20:08] LABS: GLOBULIN TOTAL 3.5 g/dL (2.2-3.9); M-SPIKE Not Observed g/dL (Not Observed)
[2019-04-01] VITALS (19 sets, daily range): BP systolic 83–129; BP diastolic 32–60
--- NOTE | 2019-04-01 00:34 | NUR ---
GCS 15. ORIENTED X3. FC, MURPHY. DROWSY. FLAT AFFECT. SPEAKS VERY LITTLE. SLOW TO RESPOND. GENERALIZED WEAKNESS. AFIB ON MONITOR. MAINTAINING MAP > 60. O2 SAT> 92% ON 2L PER NC. DENIES SOA. TOLERATING PO INTAKE. PT HAS POOR APPETITE. REQUIRES ASSISTANCE AND ENCOURAGEMENT DURING MEALS. HENNING TO DD. ADEQUATE URINE OUTPUT. SEE WOUND DOCUMENTATION. VITAL SIGNS AND ASSESSMENTS DOCUMENTED. WILL CONTINUE TO MONITOR.
[2019-04-01 06:09] LABS: ALBUMIN 2.3 g/dL (3.4-5.0); CALCIUM 8.3 mg/dL (8.5-10.1); CREATININE 1.7 mg/dL (0.6-1.0); PHOSPHORUS 3.1 mg/dL (2.5-4.9); POTASSIUM 4.3 mmol/L (3.5-5.1)
--- NOTE | 2019-04-01 09:22 | HC ---
[facility] [place] [address] CONSULTATION Name: ANAMIKA MEEK Room #: [facility] IN M.R.#: [id number] Admission: 03/22/19 ������������������ Attend Phys: Aleksey Mccormack DO Discharge: ������������������ Date of : 47 Report #: [id number] THIS REPORT FOR: //name// CC: Aleksey Bella NEUROLOGY CONSULT HISTORY OF PRESENT ILLNESS: The patient is a 73-year-old female who was admitted to the hospital on 03/22/2019. The patient came to the hospital, presenting with fatigue. The family states that the patient has had difficulty controlling hyperthyroidism. She has become more lethargic and bright red blood was noted in her stool. Over time, the patient had become confused and a Neurology consult was requested for altered mental status. The patient's is at the bedside and he states that the patient has gradually improved over time. He thinks the altered mental status was secondary to dehydration. PAST MEDICAL HISTORY: Atrial fibrillation, hypertension, hypothyroidism, depression, anemia, small cell carcinoma, MRSA. 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 MEDICATIONS IN HOSPITAL: Pradaxa 150 mg b.i.d., torsemide 40 mg daily, Synthroid 200 mcg daily, metoprolol 25 mg daily, midodrine 5 mg t.i.d., pantoprazole 40 mg b.i.d., spironolactone 25 mg b.i.d., Zosyn 3.375 grams q. 12 hours, Xanax 1 mg p.r.n. ALLERGIES: HYDROCODONE, OXYCODONE, LATEX, KETOROLAC, ADHESIVE. PHYSICAL EXAMINATION: VITAL SIGNS: Temperature 36.7, pulse rate 86, respiratory rate 21, blood pressure 114/48, bedside pulse oximetry 100% on 2 liters nasal cannula. NEUROLOGIC: Cranial nerves 2-12 are grossly intact. Motor exam demonstrates symmetrical movement of the extremities. Plantar responses are flexor. There is no evidence of dysmetria. The patient was noted to have a paucity of speech. LABORATORY WORK: Hematology: White blood cell count 6.3, hemoglobin 9.5, hematocrit 28.2, platelet count 88,000. Urinalysis on admission: 3+ blood, nitrite positive, 3+ leukocyte esterase. Chemistry: Sodium 141, potassium 3.7, chloride 101, carbon dioxide 35, BUN 35, creatinine 1.6, glucose 97. Liver functions demonstrate elevated AST of 44 and alkaline phosphatase of 169. The patient last had a B12 level in October of this year, it was 853 with a folate level of 72.5. Her TSH is 4.114, free T4 1.4, free T3 0.95. IMAGING STUDIES: CT scan of the head demonstrates [place] [address] CONSULTATION Name: ANAMIKA MEEK Room #: 241-P [facility] IN M.R.#: [id number] Admission: 03/22/19 ������������������ Attend Phys: Aleksey Mccormack, Discharge: ������������������ Date of : 47 Report #: [id number] IMPRESSION AND PLAN: This patient has been encephalopathic, but has apparently improved over time. I have asked Speech Therapy to perform a cognitive evaluation. I will also order an electroencephalogram to evaluate for subclinical seizures. I have also ordered a B12 level, although I realize her B12 was well within normal limits several months ago. I thank you for your kind referral of the patient and we will reevaluate her tomorrow. ��������������������������������������������� <ELECTRONICALLY SIGNED> ���������������������������������������� By: Collette Jeffers DO ��������������������������������������������� 04/01/19 0922 1026 1806 Collette Jeffers DO /nt
--- NOTE | 2019-04-01 12:43 | HC ---
[facility] [place] [address] CONSULTATION Name: ANAMIKA MEEK Room #: 241-P [facility] IN M.R.#: [id number] Admission: 03/22/19 ������������������ Attend Phys: Aleksey Mccormack DO Discharge: ������������������ Date of : 47 Report #: [id number] THIS REPORT FOR: //name// CC: Aleksey Bella HISTORY OF PRESENT ILLNESS: This 73-year-old white male was admitted through the Emergency Room with complaints of fatigue and subsequently felt to be septic. She was placed on antibiotics after blood cultures and has had ongoing requirement of pressors. We have been asked to see her in regard to mild anemia. She denies this being a previous issue. She has had some rectal bleeding recently that she attributed to constipation. She has never undergone a colonoscopy. PAST MEDICAL HISTORY: Significant for atrial fibrillation. She has medically managed congestive heart failure along with hypothyroidism. ALLERGIES: KETOROLAC, LATEX, HYDROCODONE AND OXYCODONE, WHICH MAKE HER ANXIOUS. FAMILY HISTORY: Not contributory. SOCIAL HISTORY: She is a nondrinker, nonsmoker. MEDICATIONS: As noted on the MFR. REVIEW OF SYSTEMS: Negative except as in her history of present illness. PHYSICAL EXAMINATION: GENERAL: Shows her to be alert and responsive, though slow in responding to questions, evidently has improved over the last few days since admission. HEENT: Normocephalic. Her mouth is clear. CHEST: Clear. CARDIOVASCULAR: Normal S1, S2. ABDOMEN: Obese. SKIN: Warm with normal turgor. EXTREMITIES: Show marked edema. NEUROLOGIC: No focal localizing signs. LABORATORY DATA: Shows only a mildly reduced hemoglobin. I was able to obtain records from Dr. Bella which showed a normal white count of 5400, hemoglobin 11.4, platelet count 290,000 on 03/05 with normal indices and differential. ASSESSMENT: Mild anemia. PLAN: Her earlier serum creatinine has been elevated, and I suspect that this mild anemia may be in part related to her mild renal insufficiency/anemia of chronic disease as she is normochromic, normocytic. We will also obtain a [facility] [address] [place] [address] CONSULTATION Name: ANAMIKA MEEK Colby Room #: 241-P [facility] IN .R.#: [id number] Admission: 03/22/19 ������������������ Attend Phys: Aleksey Mccormack DO Discharge: ������������������ Date of : 47 Report #: [id number] protein electrophoresis. She is receiving vitamin K for her prolonged prothrombin time, with the patient being on Pradaxa prehospitalization for atrial fibrillation. I suspect that she has a passive congestion of her liver contributing to a vitamin K deficiency/prolongation of the protime. Because of the rectal bleeding, GI has seen and is planning further endoscopic evaluation on recovery. Thanks for allowing us to participate in her care. ��������������������������������������������� <ELECTRONICALLY SIGNED> ���������������������������������������� By: Simran Wilcox MD ��������������������������������������������� 04/01/19 1243 1507 1601 MD geetha Maria
--- NOTE | 2019-04-01 15:19 | NUR ---
SHARAN reviewed chart and spoke with attending physician. MRI ordered today per neuro. Pt off the unit having MRI. SHARAN discussed case with [facility] director of rehabilitative services, who states that [facility] is able to accept pt pending results of MRI. [facility] would be able to accept pt tomorrow if medically stable. SHARAN updated [facility] liaison. Pt with orders to transfer out of ICU. SHARAN spoke with pt's dtr, Blanka, via phone to provide update. Pt's dtr will update pt's . Family is agreeable with pt going to [facility] pending results of MRI and pt being medically stable. SHARAN is following to assist as needed with discharge planning.
[2019-04-02 00:52] VITALS: BP 117/47
--- NOTE | 2019-04-02 03:29 | NUR ---
PT IN BED WITH SOME RESTLESSNESS. PT PULLING OFF GOWN. PT REMAINS A&OX 1-2. PT CONTINUES TO BE AFIB ON MONITOR. ON RA. AM LABS TO BE REVIEWED.
--- NOTE | 2019-04-02 03:33 | NUR ---
PT AND FAMILY NOTIFIED OF TELE RUNNER MONITORING AND SIGNED SHEET AND PLACED IN CHART.
[2019-04-02 04:36] VITALS: BP 98/50
[2019-04-02 07:14] VITALS: BP 110/75
[2019-04-02 07:25] LABS: ALBUMIN 2.2 g/dL (3.4-5.0); CALCIUM 8.7 mg/dL (8.5-10.1); CREATININE 1.8 mg/dL (0.6-1.0); PHOSPHORUS 2.9 mg/dL (2.5-4.9); POTASSIUM 3.8 mmol/L (3.5-5.1)
--- NOTE | 2019-04-02 10:04 | NUR ---
WOUND CARE FOLLOW UP; ROUNDING WITH DR JUAN CARLOS ISSA AND LUIS WILD BSN. THE SKIN FOLDS ARE ALMOST RESOLVED TODAY. THE ONLY ISSUE IS THE PATIENTS MENTAL STATUS. SHE IS SLEEPY, DIFFICULT TO AROUSE. SHE DOES ANSWER QUESTIONS BUT SLOW TO RESPOND. THIS IS NOT NORMAL FOR THIS PATIENT. THE URINE IS CLEARLY BLOOD TINGED THIS FINDING IS NEW. DISCUSSED WITH TORRI
[2019-04-02 10:28] LABS: URINE BILIRUBIN NEGATIVE (Negative); URINE BLOOD 3+ (Negative); URINE GLUCOSE-RANDOM* NEGATIVE (Negative); URINE KETONES NEGATIVE (Negative); URINE LEUKOCYTES 3+ (Negative); URINE NITRITE NEGATIVE (Negative); URINE PROTEIN (DIPSTICK) 1+ (Negative); URINE UROBILINOGEN 0.2 E.U./dl (0.2-1.0)
[2019-04-02 10:29] LABS: URINE CLARITY TURBID; URINE COLOR RED
[2019-04-02 10:37] LABS: SQUAMOUS None Seen /LPF (0-3); URINE RBC >20 Many /HPF (0-2); URINE WBC 6-15 Few /HPF (0-5)
[2019-04-02 10:38] LABS: BACTERIA 1-9 Few /HPF (None Seen); CASTS None Seen /LPF (None Seen); CRYSTALS None Seen /LPF (None Seen); YEAST Present (None Seen)
--- NOTE | 2019-04-02 10:38 | NUR ---
SW reviewed chart and spoke with [facility] rehabilitation aide, who states they are able to accept pt when she is medically stable for discharge. SW notified attending physician. Pt was transferred to from ICU. Awaiting final discharge orders at this time. SHARAN is following to assist as needed with discharge planning.
--- NOTE | 2019-04-02 11:55 | NUR ---
AROUSES SLOWLY APPEARS VERY DROWSY. FOLLOWS COMMANDS AND ANSWERS YES NO QUESTIONS APPROPRIATLY. TAKES SIPS OF WATER AND TOOK AM MEDS WITH APPLESAUCE. APPEARS RESTLESS AT TIMES. HENNING TO DD WITH LIGHT PINK URINE OUTPUT. REFUSE BREAKFAST. FAMILY AT BEDSIDE AND CONCERNED WITH DROWSINESS, EXPLAINED THAT IT COULD BE RELATED TO SLEEPING PILL AND WILL CONTINUE TO MONITOR CLOSELY
[2019-04-02 15:00] VITALS: BP 100/72
[2019-04-02 15:08] VITALS: BP 100/75
--- NOTE | 2019-04-02 16:33 | NUR ---
PATIENT NOT APPROPRIATE FOR ADMISSION TO ACUTE REHAB THIS DATE. WILL HAVE THERAPY REASSESS ON FRIDAY AND SEE IF PATIENT IS ABLE TO PARTICIPATE AT LEVEL NEEDED FOR ACUTE REHAB AND IS MEDICALLY STABLE. PILAR CONTINUE TO FOLLOW. THANK YOU FOR THIS REFERRAL.
[2019-04-02 19:19] VITALS: BP 131/48
[2019-04-02 19:55] LABS: BE(vivo) 8.9 mmol/L (-2 to +3); HCO3 33.6 mmol/L (22.0-26.0); pH 7.472 (7.360-7.450); sO2 97.2 % (92.0-98.0)
--- NOTE | 2019-04-02 20:16 | NUR ---
FORENSIC ARTIST ACTIVATED FOR AMS. AFTER REVIEWING CHART, PT'S NEURO STATUS APPEARS ONGOING AND NOT NEW. ABG OBTAINED AND RESULTS DISCUSSED WITH FAMILY. PHYSICIANS UPDATED ON CURRENT STATUS/FORENSIC ARTIST ACTIVATION. PT REMAINS HEMODYNAMICALLY STABLE. REMAINS ON THE UNIT.
[2019-04-03 05:38] LABS: CALCIUM 8.5 mg/dL (8.5-10.1); CREATININE 1.6 mg/dL (0.6-1.0); POTASSIUM 3.8 mmol/L (3.5-5.1)
--- NOTE | 2019-04-03 05:56 | NUR ---
ASSUMED CARE OF PT AT 1900. RECEIVED REPORT FROM DAY RN WHO STATED PT HAD BEEN UNRESPONSIVE ALL DAY, THOUGHT TO BE FROM AMBIEN GIVEN THE NOC BEFORE. DAUGHTER WAS TEARFUL AT BEDSIDE STATING THIS WAS EXTREME FOR THE PT. PT WAS UNABLE TO ANSWER ANY QUESTION AND WAS SLIGHTLY COMBATIVE W/ STAFF OVER TX AT 1930. DAY RN AND DOBBY LOOM WEAVER CALLED RAT DUE TO DECREASED RESPONSIVENESS. VS STABLE. CONTACTED TRANSACTION ADVISORY SERVICES MANAGER AND NEURO PHYSICIAN. NEW ORDERS GIVEN, EEG AND CT SCAN COMPLETED. FLUIDS STARTED. PT BECAME MORE ALERT GRADUALLY OVER NOC. WAS ABLE TO TAKE PILLS IN JELLO AND 2 HOURS LATER PT STATED SHE WAS HUNGRY. BOX LUNCH PROVIDED, PT WAS ABLE TO EAT CHIPS AND HALF A TURKEY SANDWICH. ABLE TO ANSWER 2-3 ORIENTATION QUESTIONS. CURRENTLY RESTING W/ DAUGHTER AT BEDSIDE. PROGRESSING TOWARDS POC GOALS.
[2019-04-03 08:17] VITALS: BP 114/46
[2019-04-03 16:31] VITALS: BP 125/41
--- NOTE | 2019-04-03 18:29 | NUR ---
AAOX3 FORGETFUL. FLAT AFFECT, RESPONDS APPROPRIATELY. ATE APPROX 70% OF ALL MEALS. BED BATH COMPLTED, HAIR WASHED. NYSTANTIN POWDER TO SKIN FOLDS. LIGHT NON RAISED RASH ON BACK. DANGLED AND SAT UP FOR PT/OT FOR 1O MIN WITH GOOD TOLERATION OF ACTIVITY. DENIES PAIN BUT OCCASIONALLY REPORTS BACK DISCOMFORT, IMPROVED WITH REPOSITIONING. HENNING D/C'D AT 14OO AND EXTERNAL CATHETER INPLACE. INCONTINENT OF SMALL AMT SOFT YELLOW STOOL. FAMILY AT BEDSIDE. SALINE LOCK INTACT LEFT FOREARM. REMAINS ON ROOM AIR.
[2019-04-03 19:20] VITALS: BP 126/55
[2019-04-04 03:55] VITALS: BP 120/59
--- NOTE | 2019-04-04 03:58 | NUR ---
ASSUMED CARE PT REMAIN DROWSY MOST OF SHIFT EASLIY AWAKEN WHEN PO MEDICATION TAKEN OR WHEN NAME CALLED AND OFFER WATER , TURNED EVERY 2 HOURS AND TOLERATED WELL. LOADING UNIT OPERATOR SEATING SHOWS AFIB WITH CONTROLLED RATE OF 94. REST WELL THROUGHOUT HOURLY ROUNDS, NO CHANGES NOTED IN PRESENT ASSESSMENT, WILL REPORT CHANGES OR ABNORMAL FINDINGS.
[2019-04-04 07:42] VITALS: BP 109/36
[2019-04-04 08:09] LABS: HBsAG-EMPLOYEE EXPOSURE Negative (Negative); HCV AB-EMPLOYEE EXPOSURE 0.1 (0.0-0.9)
[2019-04-04 16:30] VITALS: BP 99/42
--- NOTE | 2019-04-04 18:22 | NUR ---
ASSUMED CARE OF PT AT APPROX 0700. PT IS DROWSY BUT ARROUSABLE. ALERT TO SELF, PLACE AND TIME. DENIES PAIN AND SOA. MONITORED ON TELE AND ABLE TO MAINTAIN 02 SAT >90 ON RA. ASSESSMENT CHARTED. PT TURNED OFTEN TO MAINTAIN SKIN INTEGRITY. UPON PERFORMING TRISH CARE NOTICED THAT PT HAD SKIN BREAK DOWN ON INNER LABIA BILATERALLY. REMOVED PUREWICK EXTERNAL CATHETER FROM AREA AND DC'D. CALLED DR TO NOTIFY AND RECIEVED ORDER FOR INSERTION OF HENNING CATHETER. SUCCESFUL INSERTION OF HENNING, WOUND PHOTO TAKEN. PT AWARE AND DENIES ANY QUESTIONS OR CONCERNS BARRIER CREAM APPLIED GENEROUSLY WITH TURNS THROUGHOUT. THIS AFTERNOON MUCH MORE ALERT AND CONVERSATIONAL THAT MORNING. FAMILY AT BEDSIDE. DENY QUESTIONS OR CONCERNS AT THIS TIME. WILL CONTINUE TO MONITOR.
[2019-04-04 20:00] VITALS: BP 106/48
--- NOTE | 2019-04-05 03:46 | NUR ---
ASSUMED PT CARE AROUND 1900. ORIENTED X2. DENIES ANY PAIN. PT WAS ALERT AND TALKING AT BEGINNING OF SHIFT. PT INTERACTED WITH FAMILY WHEN THEY CAME TO VISIT. SINCE THEN, SHE HAS BEEN SLEEPING DURING THE NIGHT. RESP EVEN AND UNLABORED. Q2H TURN. NYSTATIN POWDER AND ZGUARD CREAM APPLIED INDICATED TO SKIN BREAKDOWN AREAS. VSS. FALL PRECAUTIONS IN PLACE. PROGRESSING SLOWLY TOWARD POC GOALS. WILL CONTINUE TO MONITOR FURTHER.
[2019-04-05 04:00] VITALS: BP 105/52
[2019-04-05 04:34] LABS: HEMATOCRIT 26.8 % (37.0-47.0); HEMOGLOBIN 8.8 gm/dL (12.0-15.0); MCH 29.9 pg (26.0-34.0); MCHC 32.9 g/dL (28.0-37.0); MCV 90.9 fL (80.0-100.0); RBC 2.95 mil/uL (4.20-5.00); RDW 15.9 % (10.5-14.5); WBC 8.9 thou/uL (4.0-11.0)
[2019-04-05 04:46] LABS: ALBUMIN 2.2 g/dL (3.4-5.0); CALCIUM 8.1 mg/dL (8.5-10.1); CREATININE 1.8 mg/dL (0.6-1.0); PHOSPHORUS 2.8 mg/dL (2.5-4.9); POTASSIUM 3.6 mmol/L (3.5-5.1)
[2019-04-05 06:09] VITALS: BP 165/45
[2019-04-05 07:28] VITALS: BP 116/43
--- NOTE | 2019-04-05 07:55 | EKG ---
[address] [place] [address] ELECTROCARDIOGRAM REPORT Name: ANAMIKA MEEK Room #: 350-P ADM IN M.R.#: [id number] ������������������ Admission: 03/22/19 ������������������ Attend Phys: Aleksey Mccormack DO Discharge: ������������������ Date of : 49 Report #: [id number] ����������������������������������������������������������������� [id number] THIS REPORT FOR: //name// [facility] Test Date: 2019-04-02 Test Time: 19:51:16 Pat Name: ANAMIKA MEEK Department: Room: 350 P Gender: F Drafter Geophysical: Starr TURK : 1945 Requested By: Gala Cespedes Order Number: [id number] MD: Rob Ash Measurements Intervals [place] Rate: 89 P: ID: QRS: 3 QRSD: 101 T: QT: 324 QTc: 395 Interpretive Statements Atrial fibrillation Borderline repolarization abnormality Baseline wander in lead(s) II,III,aVF Compared to ECG 03/22/2019 19:50:17 No significant changes Electronically Signed On 04-05-2019 7:55:12 CDT by Rob Ash [email or web address] ��������������������������������������������� <ELECTRONICALLY SIGNED> ���������������������������������������� By: Rob Ash MD, [facility] ��������������������������������������������� 04/05/19 [facility]5 50 50 Rob Ash MD, [facility] /EPI
--- NOTE | 2019-04-05 09:59 | NUR ---
PLACED ANCA WRAPS BILAT LOWER EXTREMITIES.
[2019-04-05 10:49] VITALS: BP 102/51
--- NOTE | 2019-04-05 12:31 | EEG ---
[facility] [place] [place] [address] ELECTROENCEPHALOGRAM Name: ANAMIKA MEEK Room #: 350-P ADM IN M.R.#: [id number] ������������������ Admission: 03/22/19 ������������������ Attend Phys: Aleksey Mccormack DO Discharge: ������������������ Date of : 49 Report #: [id number] ����������������������������������������������������������������� [id number] THIS REPORT FOR: //name// CC: Aleksey Bella DATE OF SERVICE: 04/02/2019 This patient is being admitted for altered mental status. EEG was done by placing the electrodes by standard 10-20 system of electrode placement. Both referential and sequential montages were used for recording. Background activity in this patient's EEG is about 8-9 Hz and 30 microvolt. It is intermixed with theta range slowing on both sides. Photic stimulation is unremarkable. Throughout the record, no active epileptiform activity was noticed. IMPRESSION: This electroencephalogram is intermixed with moderate amount of theta range slowing on both sides. That is a nonspecific abnormality, which can occur with encephalopathy, effect of psychotropic medication, dementia, etc. Clinical correlation is recommended. ���������������������������������������� <ELECTRONICALLY SIGNED> ���������������������������������������� By: Jesus Gabriel MD ��������������������������������������������� 04/05/19 1231 1022 1233 Jesus Gabriel MD /nt
--- NOTE | 2019-04-05 12:31 | EEG ---
[facility] [place] [address] [place] [address] ELECTROENCEPHALOGRAM Name: ANAMIKA MEEK Room #: 350-P ADM IN M.R.#: [id number] ������������������ Admission: 03/22/19 ������������������ Attend Phys: Aleksey Mccormack DO Discharge: ������������������ Date of : 49 Report #: [id number] ����������������������������������������������������������������� [id number] THIS REPORT FOR: //name// CC: Aleksey Bella DATE OF SERVICE: 03/31/2019 This patient is being evaluated for encephalopathy. DESCRIPTION OF PROCEDURE: This EEG was done by placing an electrode by standard 10-20 system of electrode placement. Both referential and sequential montages were used for recording. Background activity is disorganized and poorly formed. It would appear it is about 6 Hz and 30 microvolts. Frontally predominant triphasic waves appeared to be present, which appeared to be part of encephalopathy. Photic stimulation was unremarkable. The patient's EEG is disorganized throughout the record. IMPRESSION: This is an abnormal EEG because it is disorganized and poorly formed. That is a nonspecific finding, which can occur with encephalopathy. Triphasic waves are present, which is typically the part of encephalopathy. I will suggest repeating the EEG to make sure they are improving with improving of encephalopathy. Thank you very much for this referral. ���������������������������������������� <ELECTRONICALLY SIGNED> ���������������������������������������� By: Jesus Gabriel MD ��������������������������������������������� 04/05/19 1231 0702 0723 Jesus Gabriel MD /nt
--- NOTE | 2019-04-05 13:35 | NUR ---
WOUND CARE FOLLOW UP; ROUNDING WITH DR JUAN CARLOS ISSA AND LUIS RN. THE PATIENTS GLUTEAL AND ABDOMENAL FOLDS ARE MUCH IMPROVED. NO CHANGES ARE NECCESSARY. THE PATIENT'S CONFUSION HAS RESOVED AND IS ALERT AND ORIENTED X 3 TODAY. PLAN; CONTINUE CURRENT PLAN OF CARE. DISCUSSED WITH RN
[2019-04-05] MEDS ORDERED: MIDODRINE HCL 55 M1 PO (14:41)
[2019-04-05] MEDS ORDERED: METOPROLOL SUCC25 M1 PO (14:41)
[2019-04-05] MEDS ORDERED: IPRAT-ALBUT 0.5-3 ML INH (14:41)
[2019-04-05] MEDS ORDERED: FAMCICLOVIR250 MG PO (14:41)
[2019-04-05] MEDS ORDERED: HYDROXYZINE HCL25 M1 PO (14:42)
[2019-04-05] MEDS ORDERED: ALDACTONE50 MG PO (14:42)
[2019-04-05] MEDS ORDERED: DEMADEX 2020 MG/1 TA PO (14:43)
[2019-04-05] MEDS ORDERED: PANTOPRAZOLE SO40 M1 PO (14:43)
[2019-04-05] MEDS ORDERED: NYAMYC15 GM TOP (14:44)
[2019-04-05] MEDS ORDERED: CLOTRIMAZOLE10 MG PO (14:44)
--- NOTE | 2019-04-05 15:06 | NUR ---
called report to rehab.
--- NOTE | 2019-04-05 15:13 | NUR ---
DISCHARGE NOTE: SHARAN reviewed chart and spoke with nursing and attending physician. Pt is medically stable for discharge to today. SHARAN discussed with rn liaison who confirmed they are able to accept pt today. Pt and family agreeable with plan. Rehab CM to follow and assist as needed with discharge planning.
--- NOTE | 2019-04-05 15:34 | NUR ---
PT DISXCHARGED TO INPT REHAB [facility].
== END 2019-04-05 15:00 | DRG 871 ==
LOC: ER 19:32 → ICU 22:12 → EROBS 22:12 → 3W 22:12 → ICU 03-23 14:39 → 3W 04-01 17:42
PROVIDERS: Emergency Medicine; Hospitalist; Internal Medicine; Internal Medicine Gastroenterology; Internal Medicine Hematology & Oncology; Internal Medicine Infectious Disease; Internal Medicine Nephrology; Internal Medicine Pulmonary Disease; Nurse Practitioner; Nurse Practitioner Acute Care; Nurse Practitioner Family; Nurse Practitioner Gerontology; ADMIT Internal Medicine Geriatric Medicine
PROC: B244ZZZ Ultrasonography of Right Heart (ICD-10-PCS; principal; 2019-03-24)
PROC: 02H633Z Insertion of Infusion Device into Right Atrium, Percutaneous Approach (ICD-10-PCS; principal; 2019-03-24)
DX: A41.9 Sepsis, unspecified organism (principal); L89.323 Pressure ulcer of left buttock, stage 3; L89.313 Pressure ulcer of right buttock, stage 3; J18.9 Pneumonia, unspecified organism; I50.33 Acute on chronic diastolic (congestive) heart failure; E43 Unspecified severe protein-calorie malnutrition; G93.41 Metabolic encephalopathy; N39.0 Urinary tract infection, site not specified; K62.5 Hemorrhage of anus and rectum; I13.0 Hypertensive heart and chronic kidney disease with heart failure and stage 1 through stage 4 chronic kidney disease, or unspecified chronic kidney disease; N17.9 Acute kidney failure, unspecified; E87.0 Hyperosmolality and hypernatremia; Z68.43 Body mass index [BMI] 50.0-59.9, adult; E03.9 Hypothyroidism, unspecified; I10 Essential (primary) hypertension; F32.9 Major depressive disorder, single episode, unspecified; Z96.641 Presence of right artificial hip joint; Z96.651 Presence of right artificial knee joint; T68.XXXA Hypothermia, initial encounter; I48.2 Chronic atrial fibrillation; I95.9 Hypotension, unspecified; D64.9 Anemia, unspecified; N18.3 Chronic kidney disease, stage 3 (moderate); E66.01 Morbid (severe) obesity due to excess calories; L89.152 Pressure ulcer of sacral region, stage 2; M46.40 Discitis, unspecified, site unspecified; K21.9 Gastro-esophageal reflux disease without esophagitis; E78.5 Hyperlipidemia, unspecified; I08.1 Rheumatic disorders of both mitral and tricuspid valves; K64.4 Residual hemorrhoidal skin tags; E87.6 Hypokalemia; R31.9 Hematuria, unspecified; R19.7 Diarrhea, unspecified; R00.0 Tachycardia, unspecified; G47.00 Insomnia, unspecified; I89.0 Lymphedema, not elsewhere classified; B36.8 Other specified superficial mycoses; D69.6 Thrombocytopenia, unspecified; Z86.14 Personal history of Methicillin resistant Staphylococcus aureus infection; Z90.89 Acquired absence of other organs; Z85.89 Personal history of malignant neoplasm of other organs and systems; Z90.49 Acquired absence of other specified parts of digestive tract; Z79.899 Other long term (current) drug therapy; Z91.040 Latex allergy status; Z91.048 Other nonmedicinal substance allergy status; Z88.8 Allergy status to other drugs, medicaments and biological substances; Z79.01 Long term (current) use of anticoagulants; Z82.49 Family history of ischemic heart disease and other diseases of the circulatory system; Z83.3 Family history of diabetes mellitus; Z22.322 Carrier or suspected carrier of Methicillin resistant Staphylococcus aureus
CPT/HCPCS: 10078; 10203; 10879

== ENCOUNTER 2019-04-01 18:45 | Inpatient (IN) | payer OTHER ==
[~2019-04-01] VITALS: Ht 167.6 cm; Wt 132.9 kg
[~2019-04-01 18:45] MED LIST changes: +HAIR SKIN NAIL1 EACH PO; +MELATONIN5 M1 PO; +SYNTHROID200 MCG PO; +UNICOMPLEX M TA1 TA1 PO; +XANAX1 MG PO; +ZANTAC 150MG T150 MG PO
[2019-04-05] MEDS ORDERED: FAMCICLOVIR250 MG PO (14:41)
[2019-04-05] MEDS ORDERED: MIDODRINE HCL 55 M1 PO (14:41)
[2019-04-05] MEDS ORDERED: IPRAT-ALBUT 0.5-3 ML INH (14:41)
[2019-04-05] MEDS ORDERED: METOPROLOL SUCC25 M1 PO (14:41)
[2019-04-05] MEDS ORDERED: HYDROXYZINE HCL25 M1 PO (14:42)
[2019-04-05] MEDS ORDERED: ALDACTONE50 MG PO (14:42)
[2019-04-05] MEDS ORDERED: PANTOPRAZOLE SO40 M1 PO (14:43)
[2019-04-05] MEDS ORDERED: DEMADEX 2020 MG/1 TA PO (14:43)
[2019-04-05] MEDS ORDERED: CLOTRIMAZOLE10 MG PO (14:44)
[2019-04-05] MEDS ORDERED: NYAMYC15 GM TOP (14:44)
[2019-04-05 15:30] VITALS: BP 114/65
--- NOTE | 2019-04-05 15:48 | NUR ---
REC PT FROM 3W STAFF ON BED, BLE WRAPPED WITH ANCA TOES TO KNEES, ROOM AIR, SPOUSE ACCOMPANIED, A&0X4, A BIT SLOW TO ANSWER, STATES IT WAS HORRIBLE WHEN ASKED SOME DETAILS ABOUT ADMISSION. DENIES ANY PAIN AT THIS TIME, GOT FRESH WATER FOR HER. PT AND SPOUSE STATE SHE HASN'T WALKED IN AWHILE, REPORT OF HERPES AROUND LIPS/GENITALS, SAW EXCORIATION WHILE TAKING PHOTO OF VERTICAL OPENING IN BETWEEN BUTTOCKS, BARRIER/ZGUARD AND INTERDRY BEING USED SUCCESSFULLY WELL TURN Q2, SEE INTERVENTION FOR ASSESSMENT. LUNGS CLEAR AND HR IRREGULAR. ENCOURAGED BOTH TO USE CALL LIGHT FOR NEEDS AND DID REPEAT DEMO OF HOW TO USE FOR TELEVISION/NURSE/AND LIGHTS
--- NOTE | 2019-04-05 16:26 | NUR ---
pt new to acute rehab this afternoon. pt up in bed with at bedside. pt a self, person and place. pt flat affect, pt had 1 question "is going to be staff up stairs working with her or if be alone at night?"/mary. education that will follow her on acute rehab and there will be nursing staff as well. pt nodded with up and down motion to conversation rt dcp, transition of care and team meeting. per and chart " live home with spouse, has family support if needed. house, wheel chair, fww, bsc, shower bench and lift chair. needing more assistance at home with transfers to wheel chair and commode. pcp dr bradley."/chart, and . will cont following as needed for dc needs.
--- NOTE | 2019-04-05 21:29 | NUR ---
ASSUME PT CARE AT 1900. VSS ON RA. BLE WRAPPED WITH ANCA TOES TO KNEES FOR COMPRESSION, BUT OFF NOW AND SCD ON. A&0X 4, A BIT SLOW TO ANSWER BUT ABLE TO CARRY CONVERSION, HAS FLAT AFFECT. PT SAID SHE LIVES WITH HER AND WALKED WITH A WALKER AT HOME.DENIES ANY PAIN AT THIS TIME. HERPES AROUND LIPS/GENITALS CONTINUE TO BE ON SCHEDULE ANTIVIRAL, SKIN EXCORIATION ON BOTTOMS, AND VERTICAL OPENING IN BETWEEN BUTTOCKS, ASSISTED WITH BEDPAN, HAS MODERATE SOFT BM AT 1930 BARRIER/ZGUARD AND INTERDRY BEING USED SUCCESSFULLY WELL TURN Q2 WHILE IN BED SHE IS ON HER LEFT RIGHT NOW.LUNGS CLEAR AND HR IRREGULAR HAS HX OF CHRONIC AFIB. ENCOURAGED BOTH TO USE CALL LIGHT FOR NEEDS. DAUGHTER WAS AT BEDSIDE AND HELPED ME TO GET A SPONGE BATH. OFFERED SUPPORTIVE CARE. ENCOURAGE PT TO VOICE HER NEEDS. NIGHT MEDS GIVEN WITH MELATONIN. FALL PRECAUTION IN PLACE, CALL LIGHT WITHIN REACH. HENNING CATH INTACT WITH ORANGE COLOR. PT HAS INCONT BLADDER, SKIN EXCORIATION, HENNING IN PER FAMILY REQUEST. EDUCATATED ABOUT UTI AND DISCUSSED THAT IT WILL BE REMOVED SOON ONCE PT ABLE TO GET UP AND MOVING AROUND. PT AGREES. WILL CONTINUE TO MONITOR.
[2019-04-05 21:36] VITALS: BP 113/53
[2019-04-06 05:57] LABS: HEMATOCRIT 26.4 % (37.0-47.0); HEMOGLOBIN 8.9 gm/dL (12.0-15.0); MCH 30.6 pg (26.0-34.0); MCHC 33.7 g/dL (28.0-37.0); MCV 90.8 fL (80.0-100.0); RBC 2.9 mil/uL (4.20-5.00); RDW 16.1 % (10.5-14.5); WBC 6.9 thou/uL (4.0-11.0)
[2019-04-06 06:12] LABS: CALCIUM 8.7 mg/dL (8.5-10.1); CREATININE 1.8 mg/dL (0.6-1.0); POTASSIUM 3.7 mmol/L (3.5-5.1)
[2019-04-06 07:14] VITALS: BP 108/45
--- NOTE | 2019-04-06 13:15 | NUR ---
team meeting, recommendation : re team.
--- NOTE | 2019-04-06 14:49 | NUR ---
ASUMMED CARE AT 0700. PATIENT IS ALERT AND ORIENTEDX4. PATIENT MURPHY, SMALL ENGINE SPECIALIST ARE EQUAL. LUNGS ARE CLEAR. ABD IS SOFT WITH BSX4. UP WITH ASSIST OF 1 STAFF, GAIT BELT AND WALKER. UP IN CHAIR FOR MEALS. FALL AND SAFETY PROTOCOLS IN PLACE. C/O PAIN. MEDICATED WITH PRN . CONTINUES TO PROGRESS TOWARDS D/C GOALS. PATIENT DRESSING CHANGED TO LEFT HIP. PILAR CONTINUE TO MONITER.
--- NOTE | 2019-04-06 15:07 | NUR ---
ASSUMED CARE AT 0700. PATIENT IS ALERT AND ORIENTED X4, BUT IS SLOW TO RESPOND AT TIMES. PATIENT MURPHY, SEMI CONDUCTOR ASSEMBLER ARE EQUAL. LUNGS ARE CLEAR AND DEMINISHED. ABD IS SOFT, AND ROUNDED. PATIENT HAS YEAST UNDER BREASTS AND UNDER ABD FOLDS. PATIENT HAS EDEMA IN HER LOWER LEGS. LEGS ARE WRAPPED WITH ANCA WRAPS. PATIENT HAS HENNING CAtheter to dd, draining brandy colored urine. PATIENT UP IN CHAIR WITH P.T. WITH MAX ASSIST OF 2 STAFF. PATIENT HAS WOUND ON HER COCCYX. Z-GUARD APPLIED. PATIENT HAS MILD DYSPHAGIA. PATIENT HAS RED BOTTOM. Z-GUARD APPLIED FALL AND SAFETY PROTOCOLS IN PLACE. DENIES ANY PAIN AT THIS TIME. WILL CONTINUE TO MONITER.
--- NOTE | 2019-04-06 17:27 | NUR ---
GUZMAN MEEK, PT'S DAUGHTER, REQUESTED THAT INFORMATION REGARDING PT'S PROGRESS AND/OR DC PLAN ALSO BE SHARED WITH HER, HER FATHER DENISE IS SOMETIMES NOT ABLE TO REMEMBER EVERYTHING. 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 HER WORK NUMBER IS LISTED IN THE ADMISSION ASSESSMENT FOR REHAB. THIS WILL BE MESSAGED TO THE BOTTLING ROOM WORKER WELL. INFORMED DAUGHTER THAT PT REQUIRES MAX ASSIST AT THIS TIME, AND THAT WE WILL FOCUS ON STRENGTHENING, MEMORY/COGNITION, AND SELF CARE THIS WEEK AND WILL HAVE A BETTER IDEA OF LENGTH OF STAY BY FRIDAY OF NEXT WEEK. EXPLAINED AVERAGE LENGTH OF STAY, AND GUZMAN STATED THAT THE PATIENT WOULD HAVE TO MAKE AMAZING PROGRESS TO BE ABLE TO GO HOME WITH HER DAD, HE IS OLDER THAN SHE IS, AND HAS BEEN PROVIDING A LOT OF CARE FOR HER ALREADY, WHICH IS CAUSING CONCERN.
[2019-04-06 19:40] VITALS: BP 110/51
--- NOTE | 2019-04-07 02:32 | NUR ---
PT ASSESSMENT COMPLETED AND VSS. MEDS GIVEN ORDERED AND WELL TOLERATED. FALL PRECUATIONS IN PLACE. SUPPORTIVE AT BEDSIDE. SHUKRI LOWER LEG ANCA WRAPS REMOVED AT HS ORDERED. LEGS ELEVATED ON PILLOWS. ASST WITH REPOSITION FOR COMFORT USING PILLOWS AND WEDGE. HENNING DRAINING DARK URINE. NYSTATIN POWDER PLACE IN FUNGAL AREAS UNDER BREAST AND GROIN AREA. APPLIED INTERDRY CLOTH IN THESE AREAS WELL. BARRIER CREAM APPLIED TO COCCYX AND BUTTOCK WITH TURNS. SLEEPING AT THIS TIME. WILL CONTINUE TO MONITOR FREQUENTLY.
[2019-04-07 08:00] VITALS: BP 97/51
[2019-04-07 10:45] VITALS: BP 154/52
--- NOTE | 2019-04-07 14:52 | NUR ---
ASSUMED CARES AT 0700. PT VERY SLEEPY AND LETHARGIC THIS AM, WOKE UP AT 0830, ALERT AND ORIENTED *4 BUT FORGETFUL AND SLOW TO RESPOND. BP LOW THIS AM WHEN PT LAYING ON SUPINE, WHEN SHE GOT UP 30MINS LATER BP 154/52 AND DENIES DIZZINESS. HENNING REMAINS INTACT AND PATENT, URINE IS ARI, NO SEDIMENT NO FOUL ODOR. CONTINUES TO HAVE EXCORIATED SKIN UNDER BREASTS, GROIN AND PANNUS, NYSTATIN POWDER ADMINISTERED ORDERED, INTERDRY PLACED IN FOLDS. PT REMAINS INCONTINENT OF BOWEL, BUTTOCKS CLEANED AND BARRIER CREAM APPLIED, REPOSITIONED Q2H. CONTINUES TO HAVE EDEMA AND DISCOLORATION IN BLE, EXTREMITIES ELEVATED. PT UP WITH 2-3MAX ASSIST PIVOT TRANSFERS TO CHAIR/BED, VERY TIRED AND SLEEPY AFTER THERAPT THIS AFTERNOON. SPOUSE AT BEDSIDE. Q1H VISUAL CHECKS. CALL LIGHT WITHIN REACH. FALL PRECAUTIONS IN PLACE
[2019-04-07 19:30] VITALS: BP 109/50
[2019-04-08 05:50] VITALS: BP 92/37
[2019-04-08 06:03] LABS: ALBUMIN 2.3 g/dL (3.4-5.0); CALCIUM 8.2 mg/dL (8.5-10.1); CREATININE 1.8 mg/dL (0.6-1.0); PHOSPHORUS 3.6 mg/dL (2.5-4.9); POTASSIUM 3.3 mmol/L (3.5-5.1)
--- NOTE | 2019-04-08 06:19 | NUR ---
TURNED Q 2 HOURS, NYSTATIN TO FOLDS, MOISTURE BARRIER TO PERIRECTAL AREA. PATIENT QUIET OVERNIGHT. ABLE TO DRINK FROM CUP WITHOUT STRAW WHEN OFFERED AND UP IN BED MUCH POSSIBLE.
[2019-04-08 08:12] VITALS: BP 114/52
--- NOTE | 2019-04-08 20:09 | NUR ---
ASSUMED CARE AT APPROX 0715. PATIENT A/O X3-4. NEEDS EXTRA TIME AND OCCASIONAL REPETITION TO RESPOND, WELL CUES TO INITIATE/REMEMBER DIRECTIONS. VSS. PATIENT PARTICIPATED IN THERAPY. TOLERATED SITTING UP IN WHEELCHAIR FOR MOST OF SHIFT. LEGS ELEVATED WITH LEG RESTS, WRAPPED WITH ANCA. PATIENT UNABLE TO STAY AWAKE FOR BREAKFAST THIS AM. DISCUSSED WITH THERAPY ABOUT CHANGING SCHEDULE TO ALLOW PATIENT TO BE MORE ALERT IN THE MORNINGS. PATIENT'S DIET UPGRADED PER ST LONG PATIENT HAS SUPERVISION/IS OUT IN DINING ROOM. PATIENT'S FAMILY REQUESTED INFO REGARDING MEDICATIONS- CARENOTED PRINTED OUT. FALL PRECAUTIONS IN PLACE. PATIENT RESTING IN WHEELCHAIR VISITING WITH FAMILY AT CHANGE OF SHIFT.
[2019-04-08 20:17] VITALS: BP 127/61
--- NOTE | 2019-04-09 02:57 | NUR ---
MAX ASSIST TRANSFER FROM WC TO BED. MEDS ONE AT A TIME WITH SIPS OF WATER WITH NO STRAW AND HOB UP FAR IT WILL GO. NYSTATIN AND INTERDRY TO LAP FOLDS AND UNDER BREASTS. TURNED TO RIGHT SIDE AT MIDNIGHT AND LEFT SIDE NOW.
[2019-04-09 06:20] VITALS: BP 84/39
[2019-04-09 08:00] VITALS: BP 99/48
[2019-04-09 19:25] VITALS: BP 101/49
--- NOTE | 2019-04-09 19:49 | NUR ---
ASSUMED CARE OF PT AT 0715. PT IS A&OX4. IS ON ROOM AIR. DENIES PAIN. IS STABLE. BILATERAL LEG WRAPS IN PLACE. IS UP WITH MAX ASSIST X 2-3 TO BESIDE COMMODE. FALL PRECAUTIONS & HOURLY ROUNDING MAINTAINED. LABS & VITALS REVIEWED. CALL LIGHT WITHIN REACH. WILL CONTINUE TO MONITOR.
--- NOTE | 2019-04-10 03:17 | NUR ---
ASSUMED CARES AT 1900. PT AWAKE, ALERT AND ORIENTED*4. DENIES PAIN. C/O ITCHINESS, BENADRYL ADMINISTERED. LS CLEAR/DIM, SATS >95% ON RA. ABDOMEN SOFT AND OBESE, SMEARS NOTED, CLEANED AND BARRIER CREAM APPLIED. CONTINUES TO HAVE EDEMA IN BLE, PULSES 2+, ACEWRAPS REMOVED AND EXTREMITIES ELEVATED ON PILLOWS. AREAS UNDER BREAST, PANNUS AND GROIN CLEANED AND NYSTATIN POWDER APPLIED SCHEDULED. PT REPOSITIONED Q2H. HENNING REMAINS INTACT AND PATENT, URINE IS DARK YELLOW AND CLEAR WITH NO FOUL ODOR. PT SLEPT AT 2130, SLEEPING PILL ADMIN AT 2100. SLEPT ALL NOC. Q1H VISUAL CHECKS. CALL LIGHT WITHIN REACH. FALL PRECAUTIONS IN PLACE
[2019-04-10 05:23] LABS: ALBUMIN 2.1 g/dL (3.4-5.0); CREATININE 1.6 mg/dL (0.6-1.0); PHOSPHORUS 2.9 mg/dL (2.5-4.9); POTASSIUM 3.9 mmol/L (3.5-5.1)
[2019-04-10 06:30] VITALS: BP 85/42
[2019-04-10 08:04] VITALS: BP 101/79
--- NOTE | 2019-04-10 12:53 | NUR ---
ASSUMED CARE AT APPROX 0715. PATIENT A/O X3. FORGETFUL, INCREASED TIME TO RESPOND, WITH OCCASIONAL CUES AND REPETITION OF INSTRUCTIONS NEEDED. UP X MAX ASSIST OF 2-3 PERSONS TO PIVOT TRANSFER. BLE EDEMA NOTED, LEGS ANCA WRAPPED PER ORDERS. NYSTATIN APPLIED UNDER FOLDS, INTERDRY PROVIDED. PATIENT UP TO WHEELCHAIR FOR LUNCH, REFUSED TO SIT IN CHAIR FOR BREAKFAST, PATIENT EDUCATED ON SWALLOW PRECAUTIONS. PATIENT SUPERVISED IN BED FOR MEAL. PATIENT'S FAMILY EDUCATED ON HEART HEALTHY DIET INDICATIONS/ALTERNATIVE MEAL OPTIONS. PATIENT DENIED PAIN BUT WAS NOTED TO BE GRIMACING DURING TRANSFER, EDUCATED ON PAIN MANAGMENT, PATIENT REQUESTED TO TAKE PRN TYLENOL- ADMINISTERED. PATIENT REPORTED RELIEF. PATIENT IN DINING ROOM WITH DAUGHTER AT BEDSIDE. WILL CONTINUE TO MONITOR.
[2019-04-10 19:46] VITALS: BP 113/69
--- NOTE | 2019-04-11 04:16 | NUR ---
TURNED SIDE TO SIDE WITH 2P AND PROPPED WITH PILLOWS. VISTARIL FOR C/O ITCHING. TOLERATING GOOD SIPS OF WATER WITH MEDS. NYSTATIN AND INTERDRY TO FOLDS.
[2019-04-11 06:26] VITALS: BP 80/55
[2019-04-11 08:15] VITALS: BP 103/43
--- NOTE | 2019-04-11 13:50 | NUR ---
ASSUMED CARE OF PT AT 0715. PT IS A&OX4. IS ON ROOM AIR. IS UP WITH 2-3 ASSIST, GB, WALKER TO BSC. FALL PRECAUTIONS & HOURLY ROUNDING MAINTAINED. LABS & VITALS REVIEWED. ACEWARPS IN PLACE TO BILAT LE. PT IS STABLE. PT HAS BEEN BATHED, ORAL CARE PROVIDE. HAS SKIN TEAR ON LEFT FOREARM. DRSG INTACT. THIS NURSE TO CHANGE. HAS INTER DRY TO BILAT BREAST. BARRRIER OINTMENT TO BUTTOCKS. HENNING REMOVED AT 1015. PT HAS VOIDED A SMALL AMOUNT WITH BM AT APPROX 1130. WILL BLADDER SCAN PER PROTOCOL IF NOT VOIDED WITHIN PROTOCOL TIMEFRAME. DENIES PAIN. FAMILY AT BEDSIDE. CALL LIGHT WITHIN REACH. WILL CONTINUE TO MONITOR.
[2019-04-12 01:10] VITALS: BP 114/40
--- NOTE | 2019-04-12 02:18 | NUR ---
PATIENT UP WITH 3 PEOPLE ASSIST AT 1930 TO [facility]. PATIENT VOIDED 300CC AND HAD MEDIUM BM SOFT, FORMED. PATIENT BACK TO BED. NYSTATIN POWDER UNDER BREASTS AND ABD FOLDS SCHEDULED. PATIENT TURNED Q 2 HOURS. SCDS ON AND WORKING. PATIENT ON BED BAUTISTA AT 0200 AND VOIDED 300CC OUT. URINE CLEAR YELLOW. NO C/O PAIN. INTERDRY PLACED UNDER BOTH BREASTS BILAT. REQUESTED TV TURNED OFF AND PATIENT BACK TO SLEEP. CONTINUING TO ROUND ON AND MONITOR.
[2019-04-12 08:00] VITALS: BP 106/44
--- NOTE | 2019-04-12 13:22 | NUR ---
ASSUMED CARE AT 0700. PATIENT IS ALERT AND ORIENTED, AFFECT FLAT. PATIENT MURPHY'S, LAB ASST ARE EQUAL. LUNGS ARE CLEAR. ABD IS SOFT WITH BSX4. UP TO THE BSC WITH ASSIST OF 2 STAFF. PATIENT VOIDED AND HAD BM. UP IN W/C FOR LUNCH WITH ST FALL AND SAFETY PROTOCOLS IN PLACE. DENEIS PAIN AT THIS TIME. WILL CONTINUE TO RONAK.
[2019-04-12 19:15] VITALS: BP 142/52
--- NOTE | 2019-04-13 06:11 | NUR ---
TURNED Q2H WITH STAFF ASSIST. NYSTAIN TO FOLDS, INTERDRY ORDERED. PATIENT USING BEDPAN FOR VOIDS OVERNIGHT. TOLERATING MEDS WITH SIPS OF WATER. QUIETLY FRIENDLY
[2019-04-13 06:19] LABS: ABSOLUTE NEUTROPHILS 5.5 thou/uL (1.4-8.2); BASOPHILS 1.1 % (0.0-2.0); EOSINOPHILS 2.7 % (0.0-3.0); HEMATOCRIT 27.9 % (37.0-47.0); HEMOGLOBIN 9.3 gm/dL (12.0-15.0); LYMPHOCYTES 8.3 % (24.0-44.0); MCH 31.4 pg (26.0-34.0); MCHC 33.5 g/dL (28.0-37.0); MCV 93.7 fL (80.0-100.0); MONOCYTES 6.5 % (1.0-8.0); PLATELET COUNT 307 thou/uL (150-400); POLYS 81.4 % (36.0-66.0); RBC 2.98 mil/uL (4.20-5.00); RDW 18.9 % (10.5-14.5); WBC 6.7 thou/uL (4.0-11.0)
[2019-04-13 06:20] VITALS: BP 107/43
[2019-04-13 06:34] LABS: ALBUMIN 2.2 g/dL (3.4-5.0); CALCIUM 8.8 mg/dL (8.5-10.1); CREATININE 1.5 mg/dL (0.6-1.0); MAGNESIUM 1.9 mg/dL (1.8-2.4); POTASSIUM 3.9 mmol/L (3.5-5.1)
[2019-04-13 07:11] LABS: ANISOCYTOSIS 2+
[2019-04-13 07:12] LABS: POLYCHROMASIA OCCASIONAL
[2019-04-13 09:00] VITALS: BP 100/51
--- NOTE | 2019-04-13 13:04 | NUR ---
team meeting, recommendation: re team with anticipation , if family unable to care for pt with 24h care, she might need snf at dc.
[2019-04-13 19:20] VITALS: BP 118/38
--- NOTE | 2019-04-13 19:58 | NUR ---
ASSUMED CARE AT APPROX 0715. PATIENT A/O X2-3. C/O BACK PAIN. FLAT AFFECT, DEPRESSED MOOD, TEARFUL. LACKS INITATION TO PARTICIPATE IN THERAPY, FOLLOWS NURSES CUES TO COMPLETE TASKS WITH MUCH CUEING. DEPRESSED APPETITE. PSYCHIATRIST ROUNDED ON PATIENT, ORDERS RECEIVED TO INCREASE ANTI-DEPRESSIVE MED DOSE. CONTINENT OF BOWEL AND BLADDER THIS DATE. PATIENT TOILETED PER [facility] [place]2 THIS DATE. BARRIER CREAM TO SACRUM APPLIED. PVR RESIDUAL SHOWED 32 ML RESIDUAL. FALL PRECAUTIONS IN PLACE. DAUGHTER AT BEDSIDE. WILL CONTINUE TO MONITOR.
--- NOTE | 2019-04-14 04:45 | NUR ---
NYSTATIN TO HEALING SKIN FOLDS, USING BEDPAN OVERNIGHT AND IS SLEEPING IN BETWEEN VOIDS AND Q2H TURNS. SWALLOWING PILLS AND DRINKING A FEW SIPS OF WATER
[2019-04-14 05:48] VITALS: BP 99/36
[2019-04-14 10:30] VITALS: BP 120/52
--- NOTE | 2019-04-14 19:25 | NUR ---
ASSUMED CARES AT 0700. PT ORIENTED*4, FORGETFUL AND WITHDRAWN. SLOW TO RESPOND, FLAT AFFECT. DEPRESSED. EFFEXOR ADMINISTERED SCHEDULED, PT STATED THAT SHE DIDN'T WANT TO TAKE IT BUT FINALLY TOOK IT. VITALS REMAINED STABLE. DENIES PAIN. UP WITH MAX ASSIST PIVOT TRANSFERS. EXTREMITIES ELEVATED. MULTIPLE STOOLS TODAY (LOOSE), CLEANED AND DEPEND CHANGED. NYSTATIN POWDER APPLIED TO GROIN AREA, PANNUS AND GROIN AREAS. Q1H VISUAL CHECKS. CALL LIGHT WITHIN REACH. FALL PRECAUTIONS IN PLACE
[2019-04-14 19:35] VITALS: BP 114/46
--- NOTE | 2019-04-15 03:57 | NUR ---
assumed care at approx 1900 evening 04/13. pt sitting up in recliner at change of shift visiting with daughter at bedside. pt with flat affect and appears to be depressed. pt max assist to bsc to void and have small bm. pt max assist x3 to bed from bsc. pt assist with turning q2hrs and repositioning. pt appears to be sleeping soundly with hourly rounding check. bed alarm on and call light in reach. will continue to monitor.
[2019-04-15 06:12] VITALS: BP 99/53
[2019-04-15 06:21] LABS: CALCIUM 8.4 mg/dL (8.5-10.1); CREATININE 1.4 mg/dL (0.6-1.0); PHOSPHORUS 3.5 mg/dL (2.5-4.9); POTASSIUM 3.1 mmol/L (3.5-5.1)
[2019-04-15 08:05] VITALS: BP 116/48
--- NOTE | 2019-04-15 09:16 | NUR ---
CM RECEIVED PHONE CALL FROM DAUGHTER GUZMAN AND [facility] FOR [facility], CM TEAM TO SEND REFERRAL. ANTICIPATED DC NEXT WEEK.
--- NOTE | 2019-04-15 10:38 | NUR ---
DISCHARGE PLANNING. POST ACUTE RECOMMENDED AT DISCHARGE. REFERRAL FAXED TO [facility], [facility] ADMISS[facility], PER FAMILY REQUEST. CALL PLACED TO [facility] TO NOTIFY. [facility] TO REVIEW REFERRAL AND NOTIFY CM. FOLLOWING TO ASSIST.
[2019-04-15 12:19] VITALS: BP 121/52
--- NOTE | 2019-04-15 15:44 | NUR ---
ASSUMED CARES AT 0700. PT SLEEPY THIS AM, ORIENTED*4. FLAT AFFECT, DEPRESSED AND WITHDRAWN. VITALS REMAIN STABLE. LS CLEAR/DIMINISHED, SATS >93% ON RA. HS STABLE, BLE EDEMA, PERIPHERAL PULSES 2/1. CONTINUES TO HAVE REDNESS AND YEAST INFECTION UNDER BREASTS, PANNUS AND GROIN AREA. SITES CLEANED AND NYSTATIN POWDER APPLIED. ACEWRAPS ON BLE AND EXTREMITIES ELEVATED. PT WENT OUTSIDE WITH SPOUSE FOR 1HR. WORKED WITH THERAPY AND TOLERATED WELL. EATING LESS THAN 50% OF HER MEALS STATING EITHER SHE DOESN'T LIKE THE MEAL OFFERED OR SHE HAS NO APPETITE. Q1H VISUAL CHECKS. CALL LIGHT WITHIN REACH. FALL PRECAUTIONS IN PLACE
[2019-04-15 19:30] VITALS: BP 91/56
--- NOTE | 2019-04-16 03:53 | NUR ---
INTERDRY TO LOW ABDOMEN, UNDER BREASTS AND BETWEEN LEGS. TOLERATING SIPS OF WATER FROM CUP WITHOUT USING STRAW. TURNED SIDE TO SIDE WITH MOD ASSIST FROM STAFF. SLEEPING WELL BETWEEN TURNS. FREQUENT MONITORING NEAR DESK
[2019-04-16 07:00] VITALS: BP 101/55
--- NOTE | 2019-04-16 19:48 | NUR ---
ASSUMED CARE OF PT AT 0715. PT IS A&OX4 AND VITAL SIGNS ARE STABLE. PT AFFECT IS FLAT AND WITHDRAWN AT START OF SHIFT, BUT FAMILY TOOK PT TO GIFT SHOP AND OUTDOOR SITTING AREA THIS EVENING AND PT MORE INTERACTIVE WITH STAFF AND FAMILY. ANCA WRAPS BILATERALLY TO LOWER EXTREMITIES. TRANSFERS WITH MAX 2 ASSIST WITH GAIT BELT AND WALKER TO W/C OR BEDSIDE COMMODE. TOLERATED ALL MEDICATIONS WHOLE WITH THIN LIQUIDS. PARTICIPATED IN SCHEDULED THERAPIES AND DENIED ANY PAIN. FLUIDS AND NUTRITIONAL INTAKE ENCOURAGED. FAMILY AT THE BEDSIDE. FALL PRECAUTIONS IN PLACE AND NURSING WILL CONTINUE TO MONITOR.
[2019-04-16 20:05] VITALS: BP 140/76
--- NOTE | 2019-04-17 03:21 | NUR ---
assumed care at approx 1900 evening 04/16. pt alert and oriented x4 with less flat affect than previously. pt talking more and entering conversation more with daughter and staff. pt took hs meds with water tolerating well. pt assist with turning q2 and repositioning. pt appears to be sleeping soundly with hourly rounding checks. bed alarm on and call light in reach. will continue to monitor.
[2019-04-17 07:50] VITALS: BP 113/51
--- NOTE | 2019-04-17 14:29 | HC ---
[facility] [place] [address] CONSULTATION Name: ANAMIKA MEEK Room #: 516-1 ADM IN M.R.#: [id number] Admission: 04/05/19 ������������������ Attend Phys: Ayush Cruz MD Discharge: ������������������ Date of : 49 Report #: [id number] THIS REPORT FOR: //name// CC: Ayush Bella DATE OF SERVICE: 04/10/2019 NEUROBEHAVIORAL STATUS EXAMINATION ATTENDING PHYSICIAN: Ayush Cruz MD. SOLID WASTE DISPOSAL MANAGER: Guillermo Johnston, PhD CLINICAL PRESENTATION: The patient is a 73-year-old female admitted to the [facility] Rehabilitation Unit for a comprehensive inpatient rehabilitation program to improve functional mobility, activities of daily living and self-care and mental status secondary to multifactorial encephalopathy. Her assessment on admission to the rehab unit included possible causative factors of sepsis, thyroid abnormalities with a question of initial myxedema, electrolyte abnormalities, sepsis secondary to urinary tract infection, community-acquired pneumonia, mild dysphagia, atrial fibrillation, coagulopathy with involvement of hematology, possible gastrointestinal bleed, mild acute renal insufficiency superimposed on chronic kidney disease, stage III pressure ulcer in the gluteal fold, advanced left knee degenerative arthritis and morbid obesity. She is reported to have been living at home with her and the assistance of her daughter prior to this most recent admission. Her family was needed to assist her with standing from a lift chair to a commode. Morbid obesity is noted. She had an episode of mental status changes that were thought to be secondary to Ambien. A complete summary of her medical condition, history and medications can be found in her medical record. Neuropsychological consultation was requested to provide assistance in the assessment of cognitive and emotional status and to provide recommendations and services. As indicated prior to this admission, she was living with the assistance of her and daughter. The patient has one child. She is a high school graduate. 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 Her daughter stated that she had quit driving in 2012 following right total knee arthroplasty and hip replacement. She does not report to have history of alcohol or drug abuse. Her daughter describes her as having a change in personality in which her mood is more flat with minimal affect at this time. TECHNIQUES UTILIZED: Clinical interview, review of medical records, staff [facility] [address] [place] [address] CONSULTATION Name: ANAMIKA MEEK Room #: 516-1 ADM IN ..#: [id number] Admission: 04/05/19 ������������������ Attend Phys: Ayush Cruz MD Discharge: ������������������ Date of : 47 Report #: [id number] consultation and behavioral observation, mini mental status exam 2 standard version, verbal fluency assessment, and brief abstract reasoning test and clock drawing. EXAMINATION FINDINGS: The patient was alert and cooperative with the assessment. She was not able to accurately describe events surrounding her admission. She lacked insight into the purpose of the initial reason for treatment. She often looked around the room and required assistance from her daughter to describe recent events. She had an episode her daughter indicates that the patient had been showing periods of confusion and disorientation approximately one month prior to her admission. She had been making errors and bill payment. The patient is lacking insight into cognitive deficits. She does not report difficulty with memory or word finding. She denies subjective anxiety or depression and reports her appetite, energy level, and sleep is within normal limits. Her daughter is noticing variability in cognitive functioning as well as a change in affect, which presents as apathy. Difficulty with appetite, energy level, and sleep is reported. The patient appears somewhat paranoid in response to my interview. However, diminished verbal fluency and cognitive disorder are likely contributing to her presentation and self reported symptoms. Her performance on the MMSE 2 brief version is in the mild range of impairment with a raw score of 13/16, which is a T score of 36 and percentile rank of 8. She was 2/3 for initial registration and required repetition. She was 4/5 for orientation to time and 5/[address]. She was 2/3 for immediate recall of 3 items after a brief time delay and distraction, which is at the eighth percentile with a T score of 36. Her performance deteriorated on the MMSE 2 standard version to a raw score 22/30, T score at 30, and percentile rank of 2. She was 2/5 for serial sevens, 2/2 for naming, 1/1 for repetition, 3/3 for auditory comprehension. She was unable to read and follow a single command. She could write a sentence. However, she was unable to accurately copy a simple geometric design. While reading comprehension was impaired, auditory comprehension was satisfactory. Letter fluency was extremely low with a raw score of 2. Category fluency was extremely low with a raw score of 14. Overall, total fluency was a raw score of 16, which is extremely low. Brief abstract reasoning test was 2/8, which shows an impairment in higher level executive functioning and problem solving. Clock drawing was incorrect for hand placement as well as visual spatial construction. [facility] [address] [place] [address] CONSULTATION Name: ANAMIKA MEEK Room #: 516-1 ADM IN M.R.#: [id number] Admission: 04/05/19 ������������������ Attend Phys: Ayush Cruz MD Discharge: ������������������ Date of : 47 Report #: [id number] The patient is presenting with deficits in sustained concentration and attention, visual spatial coordination and construction and higher level executive functioning as suggested by poor verbal fluency and abstract reasoning. Short term memory is likely to be variable. This type of presentation suggests a neurodegenerative disorder. The patient likely is continuing to present with delirium. An underlying neurodegenerative disorder cannot be ruled out. DIAGNOSTIC IMPRESSION: Delirium, hypoactive -- acute. Likely major neurocognitive disorder (dementia), unspecified -- with extent to be determined, likely in the [id number] range once the delirium clears. Depressive Disorder, Unspecified RECOMMENDATIONS: The patient will benefit from a more thorough neurocognitive assessment upon resolution of the delirium and her return home. Assessment for a neurodegenerative condition will be of benefit to clarify the extent of supervision that is necessary along with treatment to address cognitive decline. Educational information for her family will also be helpful in regard to cognitive deficits. The patient will need structured and consistent routine along with encouragement to maintain activity upon discharge. Assistance in the managmemt of medication, finances and nutrition will be necessary. Consider psychiatric consultation for treatment of depression. Thank you very much for allowing me to provide the consultation on this patient. ��������������������������������������������� <ELECTRONICALLY SIGNED> ���������������������������������������� By: Guillermo Johnston, PhD ��������������������������������������������� 04/17/19 1429 [id number] Guillermo Johnston, PhD /nt
--- NOTE | 2019-04-17 14:38 | NUR ---
ASSUMED CARES AT 0700. PT ASLEEP, ORIENTED*4. FLAT AFFECT. MORE VERBAL AND INTERACTIVE TODAY. CONTINUES TO STRUGGLE WITH DEPRESSION. DENIES PAIN. VITALS REMAIN STABLE. LS SOUNDS CLEAR BUT DIMINISHED, SATS 90-92% ON RA. HS STABLE, BLE EDEMA, PULSES 2+/2+. BS ACTIVE*4, ABDOMEN SOFT AND OBESE, MULTIPLE STOOLS TODAY SOFT, NO DIARRHEA. PT CONTINUES TO HAVE YEAST INFECTION AROUND GROIN, PANNUS AND BELOW BREASTS, SITES CLEANED, NYSTATIN POWDER AND INTERDRY APPLIED. UP WITH 1-2 MOD ASSIST PIVOT TRANSFERS AND TOLERATED WELL. WENT OUTSIDE WITH HER FOR 40MINS THIS AFTERNOON. Q1H VISUAL CHECKS. CALL LIGHT WITHIN REACH. FALL PRECAUTIONS IN PLACE
[2019-04-17 20:40] VITALS: BP 125/48
--- NOTE | 2019-04-18 03:20 | NUR ---
assumed care at approx 1900 evening 04/17. pt sitting up in wc at change of shift, alert and oriented x4 visiting with daughter at bedside. pts daughter took pt outside before hs for some fresh air and change of scenery. pt transferred x1 from bsc to bed at hs. pt appears to be sleeping soundly with hourly rounding checks. assist with turning. bed alarm on and call light in reach. will continue to monitor.
[2019-04-18 06:39] VITALS: BP 103/49
[2019-04-18 07:42] VITALS: BP 109/39
[2019-04-18 07:43] VITALS: BP 95/41
[2019-04-18 11:58] VITALS: BP 124/49
--- NOTE | 2019-04-18 14:51 | NUR ---
ASSUMED CARES AT 0700. PT AWAKE, ALERT AND ORIENTED*4. PT VERY PLEASANT AND INTERACTIVE AND SMILING. DENIES PAIN. CONTINUES TO HAVE RASH UNDER BREASTS AND GROIN AREA, NYSTATIN POWDER AND INTERDRY APPLIED. PT REPOSITIONED Q2H. *2 BM TODAY. UP WITH 2 MIN ASSIST, GAITBELT AND WALKER AND TOLERATED WELL. UP IN THE W/C DURING LUNCH, WENT OUTSIDE WITH SPOUSE FOR 1HR. Q1H VISUAL CHECKS. CALL LIGHT WITHIN REACH. FALL PRECAUTIONS IN PLACE
[2019-04-18 19:50] VITALS: BP 136/53
--- NOTE | 2019-04-18 21:30 | NUR ---
INTERDRY TO GROIN PER PATIENT REQUEST. PATIENT TRANSFERRING FROM TO BSC AND THEN TO BED WITH ASSIST OF 2, TAKING SHORT STEPS TO MAXIMIZE STABILITY.
[2019-04-19 05:53] VITALS: BP 101/45
[2019-04-19 06:24] LABS: ABSOLUTE NEUTROPHILS 4.2 thou/uL (1.4-8.2); BASOPHILS 1.1 % (0.0-2.0); EOSINOPHILS 3.1 % (0.0-3.0); HEMATOCRIT 28.3 % (37.0-47.0); HEMOGLOBIN 10.1 gm/dL (12.0-15.0); LYMPHOCYTES 15.5 % (24.0-44.0); MCH 32.9 pg (26.0-34.0); MCHC 35.5 g/dL (28.0-37.0); MCV 92.7 fL (80.0-100.0); MONOCYTES 11.1 % (1.0-8.0); PLATELET COUNT 324 thou/uL (150-400); POLYS 69.2 % (36.0-66.0); RBC 3.06 mil/uL (4.20-5.00); RDW 18.9 % (10.5-14.5); WBC 6.1 thou/uL (4.0-11.0)
[2019-04-19 06:42] LABS: CALCIUM 8.7 mg/dL (8.5-10.1); CREATININE 1.3 mg/dL (0.6-1.0); MAGNESIUM 1.7 mg/dL (1.8-2.4); POTASSIUM 3.6 mmol/L (3.5-5.1)
[2019-04-19 07:21] LABS: ANISOCYTOSIS 2+
[2019-04-19 09:25] VITALS: BP 142/55
[2019-04-19 13:55] VITALS: BP 144/74
--- NOTE | 2019-04-19 14:00 | NUR ---
magy received phone call from pt daughter renan who stated " i have not heard from [facility] and she started to move better over the weekend and possible wants to go home and need to get this in place. not spoke with anyone. i took the day off to get this in line"/renan. education that cm would reach out to [facility]. magy spoke with [facility] who stated they are full and can not take pt for rehab and she notified dcp of this last week."/marion. magy passed on information to daughter " we great if you could talk with us and team to see if can get extra days since she is doing more rehab now?"/renan. education that sent information to dr and will discuss at team tomorrow.
[2019-04-19 18:07] VITALS: BP 121/54
[2019-04-19 19:45] VITALS: BP 116/59
--- NOTE | 2019-04-19 20:00 | NUR ---
PATIENT ALERT AND ORIENTED AND SLOW TO WAKE UP THIS AM. AT BEDSIDE AND GIVING PATIENT ENCOURAGEMENT TO WAKE UP AND PARTICIPATE IN REHAB. PATIENT COOPERATIVE BUT FLAT AFFECT. DAUGHTER AT BEDSIDE AND ASKED QUESTIONS OF THIS NURSE REGARDING MEDICATION. DAUGHTER ALSO REQUESTED TO SPEAK WITH PROSPER AND JB REGARDING DISCHARGE THIS WEEK. THE ABOVE STAFF SPOKE WITH DAUGHTER.
--- NOTE | 2019-04-20 00:46 | NUR ---
PT TRANSFERRING FROM CHAIR TO BED WITH ASSIST X2 AND IS TOLERATING FAIR. DENIES NEED FOR PAIN MEDICATION. RESTING COMFORTABLY. NO NEEDS VOICED. CALL LIGHT WITHIN REACH. WILL CONTINUE TO PROVIDE FREQUENT OBSERVATION.
--- NOTE | 2019-04-20 05:43 | NUR ---
QUIET, PLEASANT WITH BRIGHTER AFFECT THAN A WEEK AGO. TOLERATING TURNS TO SIDE WITH ONE PILLOW UNDER SHOULDER.
[2019-04-20 08:35] VITALS: BP 105/52
--- NOTE | 2019-04-20 12:59 | NUR ---
team meeting, recommendation: dc 17, (pt, ot, st, nursing, sw), outpt neuro pytyra. will daughter planning on taking fmla to assist with pt at fmla.
[2019-04-20 14:06] VITALS: BP 122/43
[2019-04-20 16:34] VITALS: BP 122/43
[2019-04-20 17:07] VITALS: BP 122/43
[2019-04-20 19:15] VITALS: BP 114/67
--- NOTE | 2019-04-20 20:35 | NUR ---
PATIENT ALERT AND ORIENTED WITH BRIGHTER AFFECT THAN YESTERDAY. PATIENT WENT OUTSIDE WITH VIA WHEELCHAIR THIS EVENING. DAUGHTER AT BEDSIDE MOST OF THE DAY AND PARTICIPATING IN CARE OF HER MOTHER. NOTIFIED WOULD CARE OF DRAINAGE OF BLISTER ON RIGHT KNEE. DRESSING WITH ABD AND KERLIX WRAP.
--- NOTE | 2019-04-21 05:00 | NUR ---
RIGHT KNEE CONTINUES TO DRAIN PINK CREAMY DISCHARGE, ABD OVER GAUZE TO COVER CHANGED TWICE THIS SHIFT; AWAIT WOUND CARE INPUT TODAY PRIOR TO GOING HOME. PATIENT HAVING SANGUINOUS DRAINAGE SURROUNDING BROWN BM AT HS
[2019-04-21 06:15] VITALS: BP 98/34
[2019-04-21 06:25] LABS: CREATININE 1.5 mg/dL (0.6-1.0); MAGNESIUM 1.7 mg/dL (1.8-2.4); POTASSIUM 3.8 mmol/L (3.5-5.1)
[2019-04-21 08:45] VITALS: BP 105/45
[2019-04-21] MEDS ORDERED: METOPROLOL SUCC25 M1 PO (09:11)
[2019-04-21] MEDS ORDERED: POTASSIUM20 PO (09:11)
[2019-04-21] MEDS ORDERED: PROBIOTIC1 EAC1 PO (09:11)
[2019-04-21] MEDS ORDERED: MIDODRINE HCL 55 M1 PO (09:11)
[2019-04-21] MEDS ORDERED: NEURONTIN 300300 M1 PO (09:11)
[2019-04-21] MEDS ORDERED: MAGOX 400400 MG PO (09:12)
[2019-04-21 09:43] VITALS: BP 122/43
--- NOTE | 2019-04-21 09:44 | NUR ---
FAXED REFERRAL TO A HH SPOKE WITH HIMANSHU IN ADM SHE CAN ACCEPT PT AT DC. ANTICIPATE DC 0N 04/21.
[2019-04-21 10:13] LABS: HEMOGLOBIN 9.3 gm/dL (12.0-15.0); MCHC 33.2 g/dL (28.0-37.0); MCV 93.2 fL (80.0-100.0); PLATELET COUNT 280 thou/uL (150-400); RDW 19.2 % (10.5-14.5); WBC 5.9 thou/uL (4.0-11.0)
[2019-04-21 11:07] LABS: ABSOLUTE NEUTROPHILS 4.3 thou/uL (1.4-8.2); ANISOCYTOSIS 1+; PLATELET ESTIMATE NORMAL; POLYCHROMASIA 1+
--- NOTE | 2019-04-21 11:21 | NUR ---
ASSUMED CARE OF PATIENT AT 0715, PATIENT ALERT AND ORIENTED X 4. PATIENT UP WITH MAX ASSIST X 2 WITH GAIT BELT AND WALKER. PATIENT DENIES PAIN THIS AM. PATIENT ASSISTED UP TO THE BSC X 2, URINATED AND MEDIUM HARD FORMED STOOL NOTED. WOUND CARE SAW THE PATIENT THIS AM, DUE TO ABSCESS RIGHT LOWER LEG BELOW THE KNEE, WOUND CARE DOCTOR DRAINED AND PROSPER/YARN WRAPPER ORDERED US TO CHECK DEPTH PRIOR TO DISCHARGE TO HOME TODAY. CREAM ORDERED DUE TO HEMORRHOIDS SMALL AMT OF BLEEDING. AT BEDSIDE. WILL CONTINUE TO MONITOR.
--- NOTE | 2019-04-21 11:42 | NUR ---
WOUND CARE FOLLOW UP; ROUNDING WITH FRANCISCO DRILL GRINDER AND LUIS RN. A NEW WOUND WAS IDENTIFIED TO THE RIGHT KNEE. THIS IS A DRAINING ABCESS WITH PURULENT DRAINAGE. THE WOUND IS PAINFUL. THE WOUND TUNNELS LATERALLY AND MEDIALLY. RECOMMENDATIONS; PACK WITH AQUACEL AG, COVER WITH A BOARDERED FOAM, DAILY/PRN DISCUSSED WITH RN
--- NOTE | 2019-04-21 12:30 | NUR ---
cm notified by bedside nurse that pt is going to be seen by wound care and going to have to have us of leg rt wound and draining. anticipation of dc home with [facility] today. will cont following as needed for dc needs.
[2019-04-21 19:50] VITALS: BP 83/47
[2019-04-22] VITALS (7 sets, daily range): BP systolic 95–122; BP diastolic 43–60
--- NOTE | 2019-04-22 03:15 | NUR ---
assumed care at approx 1900 evening 04/21. pt alert and oriented x4 with somewhat flat affect. daughter at bedside. changed saturated dressing to right knee and reinforced with light gauze wrapping. also just changed again when turning pt and when pt had used bedpan in night. pt appears to be sleeping soundly off and on. bed alarm on and call light in reach. will continue to monitor.
[2019-04-22] MEDS ORDERED: ANUSOL-HC25 MG RECTAL (08:25)
[2019-04-22] MEDS ORDERED: DOXYCYCLINE HYC50 MG PO (08:25)
--- NOTE | 2019-04-22 12:02 | NUR ---
Following for d/c planning needs. Received order from physician to arrange home health. Faxed discharge orders to [facility] and called to confirm receipt. No other needs identified.
--- NOTE | 2019-04-22 14:24 | NUR ---
ASSUMED CARE OF PT AT 0715. PT IS A&OX4 AND VITAL SIGNS ARE STABLE. PT TOLERATED MEDICAITONS WHOLE WITH THIN LIQUIDS. WOUND CARE TEAM VISITED PT AND CHANGED DRESSING TO RLE AND GAVE D/C INSTRUCTIONS FOR WOUND CARE. DR. GARG CONTACTED THIS SHIFT REGARDING D/C AND STATED THAT HE WAS OKAY WITH D/C IF WOUND CARE, HOSPITALISTS, AND FAMILY AGREED. FAMILY, HOSPITALIST, AND WOUND CARE AGREEDED WITH D/C PLANS AND PT DISCHARGED AT 1415. PT AND FAMILY GIVEN D/C EDUCATION, PAPERWORK SIGNED BY DAUGHTER, FAMILY REMOVED BELONGINGS FROM ROOM, PRESCRIPTIONS SENT WITH DAUGHTER, VOLUNTEER TRANSPORT TOOK PATIENT TO [facility] IN W/C.
[2019-04-22] MEDS ORDERED: DEMADEX 2020 MG/1 TA PO (17:03)
--- NOTE | 2019-04-23 14:35 | H ---
[facility] [place] [address] HISTORY AND PHYSICAL Name: ANAMIKA MEEK Room #: 516-1 [facility] IN M.R.#: [id number] Admission: 04/05/19 ������������������ Attend Phys: Ayush Cruz MD Discharge: 04/22/19 ������������������ Date of : 47 Report #: [id number] THIS REPORT FOR: //name// CC: Ayush Bella DATE OF SERVICE: 04/05/2019 HISTORY AND PHYSICAL AND POST-ADMISSION PHYSICIAN EVALUATION HISTORY OF PRESENT ILLNESS: The patient is a 73-year-old white female originally admitted to [facility] on 03/22/2019. She was having problems with worsening functional mobility at home. She typically is in, walker ambulator from her lift chair to the bathroom, but she was having more and more problems and was only able to get up from the lift chair to the commode. Family was needing to assist her more. She had onset of mental status changes. She is morbidly obese. She was noted to have sepsis, thought to be secondary to urinary tract infection along with a question of myxedema coma. She had electrolyte abnormalities with renal insufficiency. She also had acute on chronic diastolic heart failure. She has permanent atrial fibrillation. She was treated for community-acquired pneumonia. She also has significant coagulopathy. Hematology has been involved. Gastroenterology has seen her as well and they recommended EGD with colonoscopy as an outpatient. There was noted to be a stage 3 pressure ulcer of her gluteal fold with wound care involved. The patient had an episode of further mental status changes, thought to possibly be due to a sedative (Ambien) that she was given. She has since improved as far as her overall alertness and it was felt that she was able to tolerate her therapies for an acute inpatient rehabilitation stay. She also has had some mild dysphagia with speech therapy involved. The patient has now been admitted for acute in-hospital inpatient rehabilitation. PAST MEDICAL HISTORY: Cardioversion x 2, atrial fibrillation, hypertension, hypothyroidism, right total hip replacement, depression, chronic anemia, right total knee arthroplasty in 2012. She has severe left knee degenerative arthritis, but not felt to be a candidate for a total knee replacement with her significant obesity. History of MRSA of the blood in 2013, history of diskitis in 2013, chronic kidney disease stage 3. ALLERGIES: KETOROLAC, ADHESIVE, LATEX ALLERGY, HYDROCODONE, OXYCODONE, per report. MEDICATIONS: Please see the full medication listing. HABITS: No history of tobacco or alcohol abuse. SOCIAL HISTORY: Lives in a house with her . No steps. She used a [facility] [place] [employer] [place] [address] HISTORY AND PHYSICAL Name: ANAMIKA MEEK Room #: 516-1 [facility] IN ..#: [id number] Admission: 04/05/19 ������������������ Attend Phys: Ayush Cruz MD Discharge: 04/22/19 ������������������ Date of : 47 Report #: [id number] walker to get around short distances. She also has an electric wheelchair and scooter for community distances. REVIEW OF SYSTEMS: Did not offer any current complaints of chest pain, shortness of breath or abdominal discomfort. No recent fever or chills. No bowel or bladder changes. Note she is at a much lower level than before. No focal extremity pain complaints. She does have chronic arthritic complaints involving her left knee. PHYSICAL EXAMINATION: GENERAL: A 73-year-old white female in no obvious distress. VITAL SIGNS: Last recorded temperature 98.1, pulse 65, respirations 20, and blood pressure 113/54. Last recorded, height 5 feet 6 inches, 297 pounds. Facies appeared symmetric. There is a definite latency to her responses. She will follow basic 1 step commands. CHEST: Some decreased breath sounds throughout. CARDIOVASCULAR: Sounded regular rate and rhythm. ABDOMEN: Obese, pendulous abdomen. Soft. Bowel sounds positive, nontender. GENITOURINARY AND RECTAL: Deferred. EXTREMITIES: Functional range of motion of both upper extremities. Strength is a grade 3+/5. DTRs are trace to 1. Lower extremities, no calf swelling, functional range of motion. She does have significant obesity. Strength is probably a grade 3 to 3+/5. She has been max assist x 2 for basic bed mobility. Working on sitting edge of bed. She has been min assist. She has had severe cognitive deficits noted by speech therapy. ASSESSMENT: A 73-year-old female with the following problem list: 1. Multifactorial encephalopathy with likely causative factors including sepsis, thyroid abnormalities with question of initial myxedema coma electrolyte abnormalities. 2. Sepsis, thought secondary to urinary tract infection. 3. Community-acquired pneumonia. 4. Mild dysphagia. Speech therapy is involved. 5. Permanent atrial fibrillation. 6. Coagulopathy with hematology involved. 7. Possible gastrointestinal bleed, likely related to anticoagulation to need EGD and colonoscopy as an outpatient per GI. 8. Mild acute renal insufficiency superimposed on chronic kidney disease. 9. Stage 3 pressure ulcer gluteal fold. 10. Advanced left knee degenerative arthritis. 11. Morbid obesity. PLAN: The patient has been admitted for acute in-hospital inpatient rehabilitation. From a postadmission physician evaluation perspective, there are no relevant changes since the preadmission screening. Please see the review of prior and current medical and functional conditions and comorbidities. [address] [address] HISTORY AND PHYSICAL Name: ANAMIKA MEEK Room #: 516-1 DIS IN M.R.#: [id number] Admission: 04/05/19 ������������������ Attend Phys: Ayush Cruz MD Discharge: 04/22/19 ������������������ Date of : 47 Report #: [id number] Please see the patient's previous and current functional status. As far as risk of complications, the patient has multiple medical comorbidities as noted above. Initial plan of care involves the interdisciplinary acute inpatient rehabilitation program with goal of maximizing the patient's functional independence, so that she can hopefully return back to her prior living situation. Measurable functional goals at this point would be for her to improve as far as bed mobility and basic transfers along with ADLs, swallowing, communication and cognition. Prognosis is reasonably good with estimated length of stay probably a good 3 weeks as she is at a lower level. Potential barriers would include her multiple medical comorbidities and decreased functional status. The patient meets diagnostic criteria for an acute in-hospital inpatient rehabilitation stay. She does meet the medical necessity criteria and we will have the multiple pmo consultant physicians continue to follow. She does have the tolerance for therapies and has appropriate discharge goals back to the home setting. ��������������������������������������������� <ELECTRONICALLY SIGNED> ���������������������������������������� By: Ayush Cruz MD ��������������������������������������������� 04/23/19 1435 [id number] Ayush Cruz MD /PMT
--- NOTE | 2019-04-23 14:35 | PLAN ---
[facility] [place] [address] REHAB UNIT PLAN OF CARE Name: ANAMIKA MEEK Room #: 516-1 DIS IN M.R.#: [id number] Admission: 04/05/19 ������������������ Attend Phys: Ayush Cruz MD Discharge: 04/22/19 ������������������ Date of : 49 Report #: [id number] THIS REPORT FOR: //name// CC: Ayush Bella DATE OF SERVICE: 04/07/2019 PROGRESS NOTE AND OVERALL PLAN OF CARE SUBJECTIVE: The patient was seen back today in followup. She is in no distress. Last recorded temperature 36.9, pulse 96, respirations 20, blood pressure 154/52. She is alert, in good spirits today. She has been working in therapies with transfers, max assist x 2. She did ambulate 4 feet, max assist of 2 with a front-wheeled walker. In occupational therapy, lower body dressing is dependent. Speech, she has mild to moderate comprehensive deficits. She is on a mechanical soft, thin diet. She has severe cognitive deficits, memory with severe. ASSESSMENT: 1. Multifactorial encephalopathy. 2. Sepsis. 3. Community-acquired pneumonia. 4. Mild dysphagia with speech therapy involved. 5. Permanent atrial fibrillation. 6. Coagulopathy. 7. Possible gastrointestinal bleed, likely related to anticoagulation. We will need EGD and colonoscopy as an outpatient per GI. 8. Mild acute renal insufficiency superimposed on chronic kidney disease. 9. Stage 3 pressure ulcer, gluteal fold. 10. Advanced left knee degenerative arthritis. 11. Morbid obesity. PLAN: The overall plan of care is based on the preadmission screen, post-admission physician evaluation and information garnered from therapy assessments. 1. Estimated length of stay is probably around 2-1/2 to 3 weeks as she is at a lower level. 2. Medical prognosis is reasonably good. 3. Anticipated interventions includes the interdisciplinary acute inpatient rehabilitation program. 4. Anticipated functional outcomes would be for the patient to improve as far as basic transfers and functional mobility so that she can hopefully return back to her prior living situation. 5. Discharge destination would be back home with her . 6. Expected therapy by discipline includes PT, OT and speech 1 [place] [address] REHAB UNIT PLAN OF CARE Name: ANAMIKA MEEK Colby Room #: 516-1 [facility] IN [facility].#: [id number] Admission: 04/05/19 ������������������ Attend Phys: Ayush Cruz MD Discharge: 04/22/19 ������������������ Date of : 47 Report #: [id number] each five days a week throughout the duration of the acute inpatient rehabilitation stay. The goal is to improve her overall cognition as well to again get closer to her premorbid functional level in the hopes of returning her back to the home setting. ��������������������������������������������� <ELECTRONICALLY SIGNED> ���������������������������������������� By: Ayush Cruz MD ��������������������������������������������� 04/23/19 1435 1544 0222 Ayush Cruz MD /YOLI
== END 2019-04-22 14:15 | disposition home health service (06) | DRG 70 ==
LOC: ENTRNSPT 04-22 14:10 → EDTRNSPTSTS 04-22 14:15
PROVIDERS: Hospitalist; Nurse Practitioner; ADMIT Physical Medicine & Rehabilitation
DX: G93.49 Other encephalopathy (principal); L89.303 Pressure ulcer of unspecified buttock, stage 3; A41.9 Sepsis, unspecified organism; J18.9 Pneumonia, unspecified organism; E43 Unspecified severe protein-calorie malnutrition; N39.0 Urinary tract infection, site not specified; Z68.42 Body mass index [BMI] 45.0-49.9, adult; D68.9 Coagulation defect, unspecified; I50.30 Unspecified diastolic (congestive) heart failure; K92.2 Gastrointestinal hemorrhage, unspecified; I48.2 Chronic atrial fibrillation; M17.12 Unilateral primary osteoarthritis, left knee; E66.01 Morbid (severe) obesity due to excess calories; E03.9 Hypothyroidism, unspecified; M46.40 Discitis, unspecified, site unspecified; F32.9 Major depressive disorder, single episode, unspecified; B37.9 Candidiasis, unspecified; N18.2 Chronic kidney disease, stage 2 (mild); Z96.641 Presence of right artificial hip joint; Z96.651 Presence of right artificial knee joint; F01.50 Vascular dementia, unspecified severity, without behavioral disturbance, psychotic disturbance, mood disturbance, and anxiety; D64.9 Anemia, unspecified; N18.3 Chronic kidney disease, stage 3 (moderate); I89.0 Lymphedema, not elsewhere classified; E87.6 Hypokalemia; L30.4 Erythema intertrigo; E83.42 Hypomagnesemia; Z88.8 Allergy status to other drugs, medicaments and biological substances; Z88.6 Allergy status to analgesic agent; Z91.040 Latex allergy status; Z91.048 Other nonmedicinal substance allergy status
CPT/HCPCS: 10112

== ENCOUNTER → 2019-05-03 | Outpatient (CLI) | payer OTHER ==
[~2019-05-03] MED LIST changes: +ALDACTONE50 MG PO; +ANUSOL-HC25 MG RECTAL; +CLOTRIMAZOLE10 MG PO; +DEMADEX 2020 MG/1 TA PO; +DOXYCYCLINE HYC50 MG PO; +FAMCICLOVIR250 MG PO; +HYDROXYZINE HCL25 M1 PO; +IPRAT-ALBUT 0.5-3 ML INH; +MAGOX 400400 MG PO; +METOPROLOL SUCC25 M1 PO; +MIDODRINE HCL 55 M1 PO; +NYAMYC15 GM TOP; +PANTOPRAZOLE SO40 M1 PO
== END ==
LOC: HYPER 06:56
DX: T81.89XD Other complications of procedures, not elsewhere classified, subsequent encounter (principal); L97.812 Non-pressure chronic ulcer of other part of right lower leg with fat layer exposed; I50.9 Heart failure, unspecified; E66.9 Obesity, unspecified; M71.061 Abscess of bursa, right knee; M19.90 Unspecified osteoarthritis, unspecified site; R60.0 Localized edema; F41.9 Anxiety disorder, unspecified; F32.9 Major depressive disorder, single episode, unspecified; Z85.6 Personal history of leukemia; Z96.651 Presence of right artificial knee joint; Z68.42 Body mass index [BMI] 45.0-49.9, adult; Z87.01 Personal history of pneumonia (recurrent); Z96.641 Presence of right artificial hip joint; Y83.8 Other surgical procedures as the cause of abnormal reaction of the patient, or of later complication, without mention of misadventure at the time of the procedure

== ENCOUNTER → 2019-05-17 | Outpatient (CLI) | payer OTHER | LOC: HYPER 06:57 | DX: T81.89XD Other complications of procedures, not elsewhere classified, subsequent encounter (principal); L97.812 Non-pressure chronic ulcer of other part of right lower leg with fat layer exposed; M71.061 Abscess of bursa, right knee; R60.0 Localized edema; E07.89 Other specified disorders of thyroid; I50.9 Heart failure, unspecified; K21.9 Gastro-esophageal reflux disease without esophagitis; M19.90 Unspecified osteoarthritis, unspecified site; F41.9 Anxiety disorder, unspecified; F32.9 Major depressive disorder, single episode, unspecified; Z96.641 Presence of right artificial hip joint; Z85.828 Personal history of other malignant neoplasm of skin; Z96.651 Presence of right artificial knee joint; Y83.8 Other surgical procedures as the cause of abnormal reaction of the patient, or of later complication, without mention of misadventure at the time of the procedure ==

== ENCOUNTER → 2019-05-17 | Outpatient (CLI) | payer OTHER ==
[~2019-05-17] MED LIST changes: +LINEZOLID600 MG PO; +PAXIL10 MG
== END ==
LOC: ULTRA 16:35
DX: M25.561 Pain in right knee (principal)

== ENCOUNTER 2019-06-03 18:01 | Inpatient (IN) | payer OTHER ==
[~2019-06-03] VITALS: Ht 167.6 cm; Wt 137.0 kg
--- NOTE | ~2019-06-03 | HC ---
[facility] [place] [address] CONSULTATION Name: ANAMIKA MEEK Room #: 424-P [facility] IN .R.#: [id number] Admission: 06/03/19 Attend Phys: Sandrita Alvarez Discharge: Date of : 47 Report #: [id number] THIS REPORT FOR: //name// CC: Sandrita Bella DATE OF SERVICE: 06/04/2019 WOUND CARE CONSULTATION REQUESTING PHYSICIAN: Dr. Alvarez. CHIEF COMPLAINT: Fluid overload and chronic wound to the right knee. HISTORY OF PRESENT ILLNESS: This is a 74-year-old white female who has a chronic wound secondary to abscess involving the anterior aspect of her right inferior lower knee. She was seen in the Wound Center yesterday. At that point in time, the knee was having significant amount of bloody drainage and the patient's legs were markedly edematous and weeping secondary to fluid overload. At that time, it was felt that the patient needed to be admitted for IV diuresis and further care of the chronic right knee wound. The patient did have an ultrasound of the right knee with approximately 2 weeks ago that showed persistent fluid collection, which was felt to be consistent with a possible phlegmon. The patient states that the previous wound on her gluteal region had essentially healed and the patient is refusing to let me look at this time. We have been asked to follow the knee wound while she has been in the hospital as well as help control the edema in the lower extremities. PAST MEDICAL HISTORY: Significant for atrial fibrillation, previous cardioversion, hypertension, hypothyroidism, right total hip arthroplasty, right total knee arthroplasty, anemia, right knee abscess drained 2 months ago with persistent draining wound, chronic kidney disease, chronic antibiotic suppression with minocycline secondary to diskitis. CURRENT MEDICATIONS: Multiple, I reviewed the patient's medication list. DRUG ALLERGIES: INCLUDE AMBIEN ADHESIVE TAPE, TORADOL. LATEX, HYDROCODONE, OXYCODONE. SOCIAL HISTORY: The patient lives at home with her family. Does not smoke or drink alcohol. FAMILY HISTORY: Not pertinent to current medical condition. REVIEW OF SYSTEMS: CONSTITUTIONAL: The patient denies fevers and chills. [facility] [address] [place] [address] CONSULTATION Name: DEMOND MEEKSAMARA Bowman Room #: 424-P [facility] IN M.R.#: [id number] Admission: 06/03/19 Attend Phys: Sandrita Alvarez Discharge: Date of : 47 Report #: [id number] NEUROLOGIC: The patient with overall generalized weakness, but no isolated weakness in arms or legs. EYES: No complaints. ENT: No complaints. CARDIAC: The patient has massive lower extremity edema without chest pain or palpitations. RESPIRATORY: The patient complains of shortness of breath with walking. Denies cough or wheezes. GASTROINTESTINAL: The patient denies nausea, vomiting, abdominal pain. GENITOURINARY: The patient denies urgency or frequency. MUSCULOSKELETAL: The patient has pain around her right knee. SKIN: There is an open wound below the right knee with bloody drainage as well as resolving wound on her right gluteal region, which the patient refused to let us see. PHYSICAL EXAMINATION: VITAL SIGNS: Temperature 36.9, pulse 93, respirations 18, BP 110/48. GENERAL: This is a morbidly obese white female who is chronically ill appearing. HEENT: Normocephalic, atraumatic. Mucous membranes are somewhat dry. Pupils are round. Sclerae white. NECK: Supple, without JVD. LUNGS: Clear. HEART: Irregularly irregular. ABDOMEN: Soft, obese, nontender. EXTREMITIES: The patient has 4+ edema bilateral lower extremities with weeping coming from the right leg as well as an open wound, below the right knee approximately 1 x 1 cm with a depth of approximately 5 cm, bloody drainage noted without purulence. It is tender to palpation. Periwound is intact. There is no obvious involvement but you can see visually of deeper structures. Distal pulses are 1+ symmetric. Bilateral heel, foot and toes are without open ulcerations. NEUROLOGIC: Cranial nerves 2-12 grossly intact. Motor and sensory are grossly intact. LABORATORY DATA: White count 5.9, hemoglobin 10.1. Sed rate 70. C-reactive protein 49.3 and albumin is 1.8. IMPRESSION: 1. Chronic wound to the lower aspect of the right knee, status post incision and drainage of an abscess with concern for deeper involvement. 2. Fluid overload with massive bilateral lower extremity edema -- weeping. 3. Generalized debility. 4. Severe protein calorie malnutrition with albumin 1.9. 5. Atrial fibrillation. 6. Chronic lymphedema, bilateral lower extremities. [address] [address] CONSULTATION Name: ANAMIKA MEEK Room #: 424-P ADM IN M.R.#: [id number] Admission: 06/03/19 Attend Phys: Sandrita Alvarez Discharge: Date of : 47 Report #: [id number] PLAN: We will use Kerlix and Sonny wrap on bilateral lower extremities from toes to knee for control of edema. We will pack the right knee wound with Aquacel daily. We will place Aquacel Ag over the area of weeping on the right lower extremity, change daily. Make sure we maximize the patient's oral protein supplementation for healing. Infectious Disease and Nephrology has been consulted. We will continue to follow the patient while she is here. By: [id number] Johnnie Rahman MD /nt
[~2019-06-03 18:01] MED LIST changes: -LINEZOLID600 MG PO; -PAXIL10 MG
--- NOTE | 2019-06-03 18:32 | NUR ---
PATIENT ADMITTED TO ROOM 424 WAS DIRECT ADMIT FROM DOCTOR LIZETH. CATY CALLED HIM AND HANDED NURSE THE PHONE HE STATED THAT HE SAW PATIENT IN WOUND CLINIC AND THAT HE TOLD HER TO COME IN , HE STATED WOULD LIKE TO HAVE IV LASIX AND HENNING PLACED PT HAS DX OF CELLULITIS AND FLUID OVERLOAD. CAME FROM WOUND CLINIC. CALL TO DR YOUNG. Argelia TAKEN AND IN CHART. PT ARRIVED AT 181
[2019-06-03 19:04] LABS: HEMATOCRIT 30.7 % (37.0-47.0); HEMOGLOBIN 10.1 gm/dL (12.0-15.0); MCH 31.9 pg (26.0-34.0); MCV 96.9 fL (80.0-100.0); RBC 3.17 mil/uL (4.20-5.00); RDW 18.7 % (10.5-14.5); WBC 5.9 thou/uL (4.0-11.0)
[2019-06-03 19:14] LABS: CALCIUM 8.6 mg/dL (8.5-10.1); CREATININE 1.8 mg/dL (0.6-1.0)
[2019-06-03 19:16] LABS: INR 1.9; PROTIME 19.5 Seconds (9.3-11.4)
[2019-06-03 19:20] LABS: ALBUMIN 2.2 g/dL (3.4-5.0); TOTAL BILIRUBIN 0.4 mg/dL (<0.1-1.0); TOTAL PROTEIN 7.6 g/dL (6.4-8.2)
[2019-06-03 20:12] VITALS: BP 111/47
[2019-06-03] MEDS ORDERED: XANAX1 MG PO (22:34)
[2019-06-03] MEDS ORDERED: PAXIL10 MG (22:35)
[2019-06-03 23:50] LABS: URINE BILIRUBIN NEGATIVE (Negative); URINE BLOOD 1+ (Negative); URINE CLARITY CLEAR; URINE COLOR YELLOW; URINE GLUCOSE-RANDOM* NEGATIVE (Negative); URINE KETONES NEGATIVE (Negative); URINE LEUKOCYTES TRACE (Negative); URINE NITRITE NEGATIVE (Negative); URINE PROTEIN (DIPSTICK) NEGATIVE (Negative); URINE UROBILINOGEN 0.2 E.U./dl (0.2-1.0)
[2019-06-04 00:25] LABS: SQUAMOUS 0-3 Few /LPF (0-3); URINE WBC 0-5 Rare /HPF (0-5)
[2019-06-04 00:26] LABS: BACTERIA 1-9 Few /HPF (None Seen); CASTS None Seen /LPF (None Seen); CRYSTALS None Seen /LPF (None Seen); MUCUS 0-3 Light strn/LPF (None Seen)
[2019-06-04 03:40] VITALS: BP 107/49
--- NOTE | 2019-06-04 04:10 | NUR ---
PT A DIRECT ADMIT FROM DR STANLEY OFFICE.PT WAS SENT DOWN TO RADIOLOGY FOR XRAY.ADMISSION ASSESSMENT LIMITED DUE TO PT REFUSING SKIN ASSESMENT AND TAKING PIC OF WOUND.FAMILY IN ROOM WITH MULTIPLE QUESTIONS AND DEMANDS.MULTIPLE CALLS TO SURGICAL CODER ON DUTY TO MEET PT'S NEEDS.MEDS RECOINCILED. PT IS A HARD STICK,IV WAS FINALLY PUT IN ON HER L HAND AFTER MULTIPLE TRIALS ATTAEMPT.PT IN CONTACT ISOLATION,PRECAUTIONS MAINTAINED.DR SOSA HERE YESTERDAY TO SEE PT BUT PT WAS DONE IN RADIOLOGY.PT RECEIVED HER FIRST DOSE OF LASIX YESTERDAY,HENNING IN PLACE TO DD.SCD'S ON HER SHUKRI LOWER EXT.PT REF WOUND CARE STATED THAT DRSG WAS CHANGED AT DR METCALF'S OFFICE BEFORE SHE WAS TRANSFERRED HERE.DISCOLORATION ON HER SHUKRI LOWER EXT.PT RESTING ON HER BED AT THIS TIME.FALL PRECAUTIONS IN PLACE,CALL LIGHT WITHIN REACH.
[2019-06-04 08:31] VITALS: BP 112/45
--- NOTE | 2019-06-04 16:31 | NUR ---
patient admits with cellulitis. She resides at home with spouse. Her dtr Lisa involved with care. Patient discouraged she is admitted to hospital. Patient has walker, lift chair, bsc. She is able to ambulate with walker short distances. SPouse reports he assists with some adls like dressing. Patient dc home from with [facility] care. Patient current with their services. patient wants [facility] [place]. She does not want to transfer to . her goal is home with HH care. IF dc over weekend. [facility] [phone] [facility]
--- NOTE | 2019-06-04 19:42 | NUR ---
Assumed care of pt at 0700. Pt a&ox4. Nephrology consult added. Renal Dr requested for 24 hour urine protein order to be cancelled. Dr is familiar with patient in the outpatient setting. MRI, X-ray, and ultrasound of right knee done today. Dressing changed by wound care. Per doctor ok to leave cont pulse ox out. IV antibiotics infusing. Pain controlled. Family at bedside. Will continue to monitor.
[2019-06-04 22:00] VITALS: BP 103/37
[2019-06-05 05:10] VITALS: BP 105/38
[2019-06-05 05:32] LABS: HEMATOCRIT 25.6 % (37.0-47.0); HEMOGLOBIN 8.5 gm/dL (12.0-15.0); MCH 32.3 pg (26.0-34.0); MCHC 33.2 g/dL (28.0-37.0); MCV 97.3 fL (80.0-100.0); RBC 2.63 mil/uL (4.20-5.00); RDW 18.6 % (10.5-14.5); WBC 5.4 thou/uL (4.0-11.0)
[2019-06-05 05:48] LABS: ALBUMIN 1.8 g/dL (3.4-5.0); CREATININE 1.7 mg/dL (0.6-1.0); PHOSPHORUS 3.8 mg/dL (2.5-4.9); POTASSIUM 3.6 mmol/L (3.5-5.1)
--- NOTE | 2019-06-05 06:32 | NUR ---
The pt. was cooperative and pleasant. Wound care Rt. knee done per order, draining slighly. Culture swab taken from wound for test. Blum draining well. ABT IV given per order in Lft hand saline lock. No c.o. pain, A/O x4.
[2019-06-05 08:39] VITALS: BP 112/50
--- NOTE | 2019-06-05 09:18 | NUR ---
ASSESSMENT COMPLETED.LAB CALLED CRITICAL [facility]AN[facility] TROUGH OF 30 AT 0913,DR YOUNG NOTIFIED AT 0615,NO NEW ORDER NOTED.DRSDi TO R KNEE CHANGED.ISOLATION PRECAUTION MAINTAINED.CALL LIGHT WITHIN REACH.
[2019-06-05 16:10] VITALS: BP 103/35
--- NOTE | 2019-06-05 16:51 | NUR ---
Assumed care of pt at 1100. Pt a&ox4. Ortho consulted and will see pt in the am. Dressing on right knee clean and intact. Family at bediside. Call light within reach. Will continue to monitor.
[2019-06-05 22:00] VITALS: BP 104/42
--- NOTE | 2019-06-06 02:42 | NUR ---
PT LYING IN BED. HENNING CATHETER IN PLACE. DENIES PAIN. PLAN FOR ASPIRATION OF RIGHT KNEE 06/06. RESTING COMFORTABLY. NO NEEDS VOICED. CALL LIGHT WITHIN REACH. WILL CONTINUE TO PROVIDE FREQUENT OBSERVATION.
[2019-06-06 04:00] VITALS: BP 110/48
[2019-06-06 08:30] VITALS: BP 117/42
[2019-06-06 09:27] LABS: ALBUMIN 1.8 g/dL (3.4-5.0); CALCIUM 8.2 mg/dL (8.5-10.1); CREATININE 1.5 mg/dL (0.6-1.0); PHOSPHORUS 4.2 mg/dL (2.5-4.9)
[2019-06-06 11:10] LABS: KAPPA FREE LIGHT CHAINS 139.9 mg/L (3.3-19.4); KAPPA/LAMBDA RATIO 1.16 (0.26-1.65)
[2019-06-06 16:18] VITALS: BP 102/49
[2019-06-06 17:51] LABS: BF NUCLEATED CELLS 50350; BF RBC 291231
[2019-06-06 17:52] LABS: CLARITY TURBID; COLOR RED; TOTAL VOLUME 70 mL
--- NOTE | 2019-06-06 18:02 | NUR ---
Assumed care of patient at 0700. Patient resting in bed, denies any pain while at rest. Up to [facility] for bowel movement, required 3 people. Patient weak and low endurance. Able to have needle aspiration to right knee, done by Dr. Bo at bedside. Total of 110 ml bloody fluid removed. Samples sent for culture, gram stain, and cell count as ordered. New peripheral IV placed by IV team. Continue to monitor.
[2019-06-06 18:55] LABS: BF MACROPHAGE 8; BF NEUTROPHILS 88; SOURCE KNEE JOINT
[2019-06-06 21:00] VITALS: BP 126/50
--- NOTE | 2019-06-07 00:23 | NUR ---
ASSESSMENT COMPLETED.PT'S DTR AT BEDSIDE AT START OF SHIFT.PT DENIED PAIN SO FAR.PT'S O2 SAT IN MID 80'S PT PUT ON O2 AT 2L/NC CAME UP TO 96%.PT REFUSED TO BE TURNED AT THIS TIME,STATED THAT SHE IS COMFORTABLE SO FAR.DRSG TO HER R KNEE C/D/I.FALL AND ISOALTION PRECAUTIONS IN PLACE,CALL LIGHT WITHIN REACH.
[2019-06-07 03:37] LABS: ALBUMIN 1.6 g/dL (3.4-5.0); CALCIUM 7.8 mg/dL (8.5-10.1); CREATININE 1.6 mg/dL (0.6-1.0); POTASSIUM 3.5 mmol/L (3.5-5.1)
[2019-06-07 08:00] VITALS: BP 122/52
--- NOTE | 2019-06-07 09:55 | HC ---
[facility] [place] [address] CONSULTATION Name: ANAMIKA MEEK Room #: 424-P [facility] IN M.R.#: [id number] Admission: 06/03/19 Attend Phys: Sandrita Alvarez Discharge: Date of : 47 Report #: [id number] THIS REPORT FOR: //name// CC: Sandrita Bella DATE OF SERVICE: 06/06/2019 CHIEF COMPLAINT: Septic right total knee arthroplasty. HISTORY OF PRESENT ILLNESS: This morbidly obese 74-year-old female with congestive heart failure and severe peripheral edema, has had problems with cellulitis and open wounds in both lower extremities for several months. She had a right total knee performed several years ago and apparently has done reasonably well without much discomfort. Now, she is having some increased pain and swelling involving the right knee, near a small open wound, which has been draining from the patellar tendon region for the past month. X-rays suggest some osteopenia and possible loosening of the components. MRI scan confirms this with possible evidence of osteomyelitis and possible loosening or displacement of the patellar component. Given these findings with possible septic joint, I have been asked to see the patient for comment and for joint aspiration. At the time of my evaluation, she is accompanied by her daughter who has been helping to care for her over the past months. The patient herself is somewhat agitated and somnolent. She does, however, seem to understand the situation and response to my questions. The right lower extremity is quite edematous and the patient is morbidly obese, making evaluation difficult. Surprisingly, she has only mild discomfort involving the right leg; however, there is a small draining wound, which has recently been packed overlying the patellar tendon region of the right knee. The knee itself is moderately edematous and mildly warm. I have explained that the findings are certainly suggestive of infection involving the joint with septic knee. Given this, we have elected to go ahead with joint aspiration. I removed about 60 mL of bloody slightly turbulent fluid, which certainly would be consistent with a joint infection. This is sent for Gram stain, cell count and culture. I have had a lengthy discussion with the patient and her daughter explaining the very serious nature of these findings. She is not a good candidate for any sort of surgery and I doubt that she would tolerate a 2 stage total joint revision procedure. I am uncertain that she would heal an above-knee amputation given her weight and anasarca. I doubt that this infection can be effectively controlled with nonsurgical management. Nevertheless, the patient and her daughter feels she is simply not a candidate for any sort of surgery and therefore wished to discuss with family and with her other physicians the option of medical management with whatever result may occur. At this point, we will [address] [address] CONSULTATION Name: ANAMIKA MEEK Room #: 424-P [facility] IN M.R.#: [id number] Admission: 06/03/19 Attend Phys: Sandrita Alvarez Discharge: Date of : 47 Report #: [id number] await laboratory results and culture. I am happy to comment further with family. They may wish to discuss this issue also with Dr. Valentine, who performed the total knee replacement several years ago. <ELECTRONICALLY SIGNED> By: Ayush Bo MD 06/07/19 0955 1455 0023 Ayush Bo MD /nt
--- NOTE | 2019-06-07 11:34 | HC ---
[facility] [place] [address] [address] CONSULTATION Name: ANAMIKA MEEK Room #: 424-P ADM IN M.R.#: [id number] Admission: 06/03/19 Attend Phys: Sandrita Alvarez Discharge: Date of : 47 Report #: [id number] THIS REPORT FOR: //name// CC: Sandrita Bella DATE OF SERVICE: 06/04/2019 INFECTIOUS DISEASE CONSULTATION REASON FOR CONSULTATION: I was asked to evaluate concerning right knee soft tissue infection in the setting of a right total knee arthroplasty. 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 She was hospitalized in March with urosepsis. With this prolonged hospital stay, she developed gluteal wounds and is now dealing with a deep wound involving the anterior aspect of her lower knee. This continues to drain a fair amount. She has had pain when she walks. She denies any rest pain. Denies any fever, chills or sweats. She notes that the drainage has been bloody. Denies any surrounding erythema. She does have discoloration from minocycline that she was taking for years. REVIEW OF SYSTEMS: The patient is markedly limited in her activities. She is able to stand and walk short distances with assistance. She is morbidly obese. She has lymphedema, atrial fibrillation. No cough or sputum production. No chest pain or palpitations. Denies any nausea, vomiting or diarrhea. She now has an indwelling Blum catheter. Otherwise, a full 10-point review of systems was negative other than what is described above. ALLERGIES: AMBIEN, ADHESIVE TAPE, TORADOL, LATEX, HYDROCODONE, OXYCODONE. MEDICATIONS: As noted on her DEC, having been started on vancomycin today. Again, she is on doxycycline chronically. PAST MEDICAL HISTORY: Atrial fibrillation, cardioversion x 2, hypertension, hypothyroidism, tonsillectomy, right total hip arthroplasty, right total knee arthroplasty, depression, anemia, small cell carcinoma, right forearm MRSA diskitis and sepsis in 2013, involvement of her right total hip arthroplasty at that point. She has been on chronic suppressive antibiotics since. Left knee degenerative arthritis, cholecystitis, chronic kidney disease. FAMILY HISTORY: Noncontributory. SOCIAL HISTORY: Nonsmoker, minimal alcohol intake. [facility] [address] [place] [address] CONSULTATION Name: ANAMIKA MEEK Room #: 424-P [facility] IN M.R.#: [id number] Admission: 06/03/19 Attend Phys: Sandrita Alvarez Discharge: Date of : 47 Report #: [id number] PHYSICAL EXAMINATION: VITAL SIGNS: She was afebrile and hemodynamically stable. She was morbidly obese. GENERAL: She was lying in bed in no acute distress. SKIN: With several areas of figueroa hyperpigmentation as noted from her minocycline use. She had venous stasis dermatitis changes to both lower extremities below the knee. There was a sinus tract in the anterior right upper pretibial skin. Serosanguineous drainage was evident. No surrounding cellulitis. She had limited range of motion in her right knee. This sinus tract was just below the anterior knee incision placed for her total knee arthroplasty. HEENT: Eyes without scleral icterus. Mouth without mucositis. NECK: Supple, with no thyromegaly or mass. HEART: Regular, without murmur. LUNGS: Clear. ABDOMEN: Obese, soft, nontender, no hepatosplenomegaly or mass. EXTREMITIES: Without clubbing or cyanosis. NEUROLOGIC: Cranial nerves intact. Strength in the upper and lower extremities was symmetric with generalized weakness in her lower legs. Mood normal with no anxiety or depression. Mental status was normal. GENITAL AND RECTAL: Not performed. I was unable to roll the patient over due to her size and no other assistance available. By history, she had a gluteal wound, which will be evaluated by pictures obtained by nursing at admission. IMPRESSION: 1. Sinus tract involving the right lower extremity pretibial skin. I am concerned that this may involve the right total knee arthroplasty. She also has a pressure wound to her gluteus. 2. Chronic renal failure. 3. Chronic lymphedema. 4. Atrial fibrillation with current rate control. RECOMMENDATIONS: We will evaluate right knee further with x-rays. Check inflammatory markers. Offload her gluteus wound. We will discuss antibiotic options once further information is gleaned from her gluteus wound. <ELECTRONICALLY SIGNED> By: Dylan Duran MD 06/07/19 1134 [id number] [id number] Dylan Duran MD /nt
--- NOTE | 2019-06-07 16:44 | NUR ---
Assumed pt care at 7am.Assessment completed.vss.Pt tolerated meds and diet. Partial bed bath given by it business systems analyst.Later this afternoon,drsg change done to rt knee as ordered with pt dtr's assisst and supervived by this rn.Pt requested to sit on bsc for some minutes,3 nursing staff assisted pt and moderate bm noted. Pericare given.Pt now back to bed resting with family at bs.No verbal c/o at present.Will continue to monitor.
[2019-06-07 17:11] VITALS: BP 122/52
[2019-06-07 19:29] VITALS: BP 114/32
--- NOTE | 2019-06-08 04:50 | NUR ---
ASSESSMENT COMPLETED.PT DENIED PAIN SO FAR.REPOSITIONED PER HER REQUEST.PT'S O2 SAT WAS 87% AT MN,PT WAS PUT ON 2L/NC O2 SAT CAME UP TO 94%.DRAINAGE NOTED ON THE DRSG ON HER R KNEE,PT REF THE DRSG TO BE CHANGED.HENNING CATH TO DD.PT RESTING ON HER BED AT THIS TIME.FALL AND ISOLATION PRECAUTIONS IN PLACE,CALL LIGHT WITHIN REACH
[2019-06-08 05:04] VITALS: BP 102/46
[2019-06-08 08:06] VITALS: BP 104/54
--- NOTE | 2019-06-08 09:22 | HC ---
[facility] [place] [address] CONSULTATION Name: ANAMIKA MEEK Room #: 424-P ADM IN M.R.#: [id number] Admission: 06/03/19 Attend Phys: Sandrita Alvarez Discharge: Date of : 49 Report #: [id number] THIS REPORT FOR: //name// CC: Sandrita Bella REASON FOR PRESENTATION: Gluteal wounds. REASON FOR CONSULTATION: Elevated creatinine. HISTORY OF PRESENT ILLNESS: A well-known patient to me. She is 74-year-old with extensive past medical history. She is known to have chronic kidney disease with a baseline creatinine of around 1.7. I evaluated her back in March of this year when she had a significantly elevated INR. She required prolonged hospital stay. She spent some time in rehabilitation. She carries a diagnosis of atrial fibrillation, hypertension, lumbar diskitis. She is also known to have an ANCA positive serology. She visited with her wound care and was advised to be admitted for further evaluation. Creatinine is stable at 1.8. PAST MEDICAL HISTORY: 1. CKD. 2. Atrial fibrillation. 3. Hypertension. 4. Hypothyroidism. 5. Lumbar diskitis. 6. Cholecystitis. 7. Right total hip. 8. Hypothyroidism. 9. Chronic lymphedema. 10. Methicillin-resistant Staphylococcus aureus in the past. ALLERGIES: HYDROCODONE. FAMILY HISTORY: Significant for diabetes mellitus and hypertension. SOCIAL HISTORY: She denies drug or alcohol abuse. MEDICATIONS: 1. Midodrine. 2. Metoprolol. 3. Gabapentin. 4. Torsemide. 5. Levothyroxine. 6. Potassium supplementations. REVIEW OF SYSTEMS: GENERAL: No fever or chills. [facility] [address] [place] [address] CONSULTATION Name: ANAMIKA MEEK Room #: 424-P ADM IN .R.#: [id number] Admission: 06/03/19 Attend Phys: Sandrita Alvarez Discharge: Date of : 49 Report #: [id number] CARDIOVASCULAR: No chest pain or palpitation. NECK: Supple. PULMONARY: No cough or hemoptysis. GASTROINTESTINAL: No nausea or vomiting. GENITOURINARY: No frequency, no urgency. MUSCULOSKELETAL: As per the history of present illness. SKIN: As per the history of present illness. PHYSICAL EXAMINATION GENERAL: She is alert, oriented at baseline. VITAL SIGNS: Temperature 37.2, blood pressure 112/45. HEAD AND NECK: No jugular venous distention. CHEST: No crackles. CARDIOVASCULAR: No rub detected. ABDOMEN: Soft, obese. LOWER EXTREMITIES: Extensive bilateral lymphedema and venous stasis changes. LABORATORY VALUES: Reviewed. Sodium is 135, potassium is 4, BUN is 31, creatinine is 1.8. IMPRESSION AND PLAN: 1. Chronic kidney disease at baseline. 2. Morbid obesity. 3. Chronic lymphedema. 4. Ongoing wound issues. 5. Atrial fibrillation. 6. Hypertension. 7. She is at her baseline from the renal perspective. I thoroughly explained for the patient and her family that part of her edema is due to chronic lymphedema changes and this will never resolve with diuretics. As for now, we will just continue with once a day dose of Demadex. Discontinue IV Lasix. 8. Continue wound care. <ELECTRONICALLY SIGNED> By: Lissett Carrizales MD 06/08/19 0922 1403 [id number] Lissett Carrizales MD /nt
[2019-06-08] MEDS ORDERED: LINEZOLID600 MG PO (12:59)
[2019-06-08 16:11] LABS: GLOBULIN TOTAL 4.6 g/dL (2.2-3.9); M-SPIKE Not Observed g/dL (Not Observed)
[2019-06-08 17:32] VITALS: BP 120/49
--- NOTE | 2019-06-08 18:41 | NUR ---
Assumed pt care at 7am.Pt in bed most of the time appeared to bed depressed and frustrated with everything.She wanted to dc home today and asked her to make sure it's done.Assessment completed.vss but bp always low.Pt on midodrine tid.Dr Duran here and told pt to wait for culture collected from rt knee drain to be completed before dc home.Pt refused and wanted Dr Alvarez notified.After calling Dr Alvarez,He said if pt wanted to dc today,she can sign ama and dc herself.Pt informed and decided to stay.Drsg change done to rt knee as ordered.Will continue to monitor.
[2019-06-08 21:45] VITALS: BP 125/52
--- NOTE | 2019-06-09 04:06 | NUR ---
PT IS ALERT AND ORIENTED. PT ASSISTED TO THE BSC WHERE SHE HAD A BM. PT WAS ALSO ABLE TO STRETCH AND SAID IT FELT GOOD TO SIT UP.HENNING WITH GOOD U/O. AFEBRILE.BP STABLE. ABDOMINAL FOLDS CLEANED, NYSTATIN AND INTER DRY APPLIED. PT FEELS FRUSTRATED THAT SHE DID NOT GET TO GO HOME.THERAPEUTIC COMMUNICATION PROVIDED.DTR IN ROOM AND VERY SUPPORTIVE. WILL CONTINUE WITH POC.
[2019-06-09 09:11] VITALS: BP 126/48
[2019-06-09 13:32] LABS: URINE BILIRUBIN NEGATIVE (Negative); URINE BLOOD 3+ (Negative); URINE CLARITY CLEAR; URINE COLOR YELLOW; URINE GLUCOSE-RANDOM* NEGATIVE (Negative); URINE KETONES NEGATIVE (Negative); URINE NITRITE-REFLEX NEGATIVE (Negative); URINE PROTEIN (DIPSTICK) 2+ (Negative); URINE SPECIFIC GRAVITY 1.015 (1.005-1.035); URINE UROBILINOGEN 0.2 E.U./dl (0.2-1.0)
[2019-06-09 13:35] LABS: URINE LEUKOCYTES-REFLEX 2+ (Negative)
[2019-06-09 13:42] LABS: BACTERIA-REFLEX None Seen /HPF (None Seen); CASTS None Seen /LPF (None Seen); CRYSTALS None Seen /LPF (None Seen); SQUAMOUS 0-3 Few /LPF (0-3); URINE RBC >20 Many /HPF (0-2); WBC CLUMPS Few (None Seen)
[2019-06-09 17:06] VITALS: BP 112/53
[2019-06-09 19:24] VITALS: BP 121/47
--- NOTE | 2019-06-09 20:04 | NUR ---
PT ALERT AND ORIENTED TIMES FOUR, WITH FLAT AFFECT. VSS, HENNING TO DD BLOOD TINGED URINE AWARE. DRESSING TO RIGHT LEG CHANGED. PT C/O PAIN PRN PAIN MEDICATIONS GIVEN WITH SOME RELEIF. PT UP TO BSC TODAY WITH ASSIST OF TWO. PT TOLERATES MEDS AND MEALS. AT BEDSIDE. PT SLOWLY PROGRESSING TOWARDS POC GOALS.
[2019-06-10 04:10] LABS: IgA 314 mg/dL (64-422); IgA 316 mg/dL (64-422); IgG 1904 mg/dL (700-1600); IgG 1922 mg/dL (700-1600); IgM 42 mg/dL (26-217); IgM 44 mg/dL (26-217)
[2019-06-10 04:35] VITALS: BP 102/51
--- NOTE | 2019-06-10 06:35 | NUR ---
NO HEMATURIA NOTED IN HENNING BAG-GOOD URINE OUTPUT. PT REQUESTED BEDPAN DURING THE NOC AND HAD A BM.PT DENIES PAIN. R KNEE DRSG IS INTACT. BLE ELEVATED ON PILLOWS.CALLS WITH NEEDS.
[2019-06-10 07:55] VITALS: BP 115/51
--- NOTE | 2019-06-10 12:30 | NUR ---
Followup: Chronic right knee abscess and wounds. Eating 50-100% of meals, and drinking Ensure Max which provide 160 rashida and 30g protein/serving. Wt gain 4 lb, pt with anasarca and receives torsemide. Change nutrition status to low risk with appropriate nutrition interventions in place.
[2019-06-10 15:41] VITALS: BP 115/51
[2019-06-10 16:15] VITALS: BP 115/51
--- NOTE | 2019-06-10 16:28 | NUR ---
FAXED DC SUMMARY, DC ORDERS, REFERRAL FORM, AND h&P TO [facility] TO [facility]. VERIFIED RECEIPT OF THE FAX.
--- NOTE | 2019-06-10 19:40 | NUR ---
PT ASSESSED AT START OF SHIFT. WOUNDS AND EDEMA MUCH IMPROVED. PT DISCHARGED AT THIS TIME TO HOME W/ HOME HEALTH. JUVENCIO AL'D. URINE BLOOD TINGED THIS AM BUT CLEARED THIS AFTERNOON. HAD 2 SOFT BM'S. DC'D W/ ALL BELONGINGS.
== END 2019-06-10 19:40 | disposition home health service (06) | DRG 602 ==
LOC: 4E 18:01
PROVIDERS: Hospitalist; Internal Medicine Hematology & Oncology; Orthopaedic Surgery; ADMIT Hospitalist
DX: L02.415 Cutaneous abscess of right lower limb (principal); E43 Unspecified severe protein-calorie malnutrition; I13.0 Hypertensive heart and chronic kidney disease with heart failure and stage 1 through stage 4 chronic kidney disease, or unspecified chronic kidney disease; I50.30 Unspecified diastolic (congestive) heart failure; G93.40 Encephalopathy, unspecified; N17.9 Acute kidney failure, unspecified; Z68.42 Body mass index [BMI] 45.0-49.9, adult; N18.3 Chronic kidney disease, stage 3 (moderate); I48.91 Unspecified atrial fibrillation; E03.9 Hypothyroidism, unspecified; E66.01 Morbid (severe) obesity due to excess calories; I89.0 Lymphedema, not elsewhere classified; Z96.641 Presence of right artificial hip joint; Z96.651 Presence of right artificial knee joint; F32.9 Major depressive disorder, single episode, unspecified; E87.70 Fluid overload, unspecified; G47.33 Obstructive sleep apnea (adult) (pediatric); I95.9 Hypotension, unspecified; M25.469 Effusion, unspecified knee; R60.1 Generalized edema; I87.8 Other specified disorders of veins; R31.9 Hematuria, unspecified; Z86.14 Personal history of Methicillin resistant Staphylococcus aureus infection; Z88.6 Allergy status to analgesic agent; Z83.3 Family history of diabetes mellitus; Z82.49 Family history of ischemic heart disease and other diseases of the circulatory system; Z88.8 Allergy status to other drugs, medicaments and biological substances; Z91.040 Latex allergy status; Z83.6 Family history of other diseases of the respiratory system
CPT/HCPCS: 10783

== ENCOUNTER → 2019-06-03 | Outpatient (CLI) | payer OTHER | LOC: HYPER 06:57 | DX: T81.89XD Other complications of procedures, not elsewhere classified, subsequent encounter (principal); L97.812 Non-pressure chronic ulcer of other part of right lower leg with fat layer exposed; L02.415 Cutaneous abscess of right lower limb; I50.9 Heart failure, unspecified; M19.90 Unspecified osteoarthritis, unspecified site; M71.061 Abscess of bursa, right knee; R60.0 Localized edema; F41.9 Anxiety disorder, unspecified; F32.9 Major depressive disorder, single episode, unspecified; Z85.6 Personal history of leukemia; Z96.651 Presence of right artificial knee joint; Z68.42 Body mass index [BMI] 45.0-49.9, adult; Z87.01 Personal history of pneumonia (recurrent); Z96.641 Presence of right artificial hip joint; Y83.8 Other surgical procedures as the cause of abnormal reaction of the patient, or of later complication, without mention of misadventure at the time of the procedure ==

== ENCOUNTER 2019-06-16 14:34 | Emergency (ER) | payer OTHER ==
[~2019-06-16] VITALS: Ht 167.6 cm; Wt 137.9 kg
[~2019-06-16 14:34] MED LIST changes: +LINEZOLID600 MG PO; +PAXIL10 MG
[2019-06-16 15:34] LABS: ABSOLUTE NEUTROPHILS 4.8 thou/uL (1.4-8.2); BASOPHILS 1.4 % (0.0-2.0); EOSINOPHILS 1.9 % (0.0-3.0); HEMATOCRIT 25.1 % (37.0-47.0); HEMOGLOBIN 8.2 gm/dL (12.0-15.0); LYMPHOCYTES 15.1 % (24.0-44.0); MCH 31.5 pg (26.0-34.0); MCHC 32.5 g/dL (28.0-37.0); MCV 96.9 fL (80.0-100.0); MONOCYTES 4.1 % (1.0-8.0); PLATELET COUNT 156 thou/uL (150-400); POLYS 77.5 % (36.0-66.0); RBC 2.59 mil/uL (4.20-5.00); RDW 17.7 % (10.5-14.5); WBC 6.2 thou/uL (4.0-11.0)
[2019-06-16 15:46] LABS: ANION GAP 4 mmol/L (7-16); BUN 38 mg/dL (7-18); CALCIUM 8.9 mg/dL (8.5-10.1); CHLORIDE 102 mmol/L (98-107); CO2 32 mmol/L (21-32); CREATININE 1.5 mg/dL (0.6-1.0); GLUCOSE 111 mg/dL (74-106); SODIUM 138 mmol/L (136-145)
[2019-06-16 15:52] LABS: APTT 45.7 Seconds (24.5-32.8); INR 1.9; PROTIME 19.4 Seconds (9.3-11.4)
[2019-06-16 15:55] LABS: TROPONIN-I <0.06 ng/mL (<0.06)
[2019-06-16 16:13] LABS: BE(vivo) 5.7 mmol/L (-2 to +3); HCO3 30.6 mmol/L (22.0-26.0); PCO2 46.6 mmHg (35.0-45.0); PO2 73.7 mmHg (80.0-100.0); pH 7.435 (7.360-7.450); sO2 95.1 % (92.0-98.0)
[2019-06-16 20:01] LABS: URINE BILIRUBIN NEGATIVE (Negative); URINE BLOOD 2+ (Negative); URINE CLARITY CLEAR; URINE COLOR YELLOW; URINE GLUCOSE-RANDOM* NEGATIVE (Negative); URINE KETONES NEGATIVE (Negative); URINE NITRITE-REFLEX NEGATIVE (Negative); URINE PROTEIN (DIPSTICK) NEGATIVE (Negative); URINE SPECIFIC GRAVITY <= 1.005 (1.005-1.035); URINE UROBILINOGEN 0.2 E.U./dl (0.2-1.0)
[2019-06-16 20:04] LABS: URINE LEUKOCYTES-REFLEX 3+ (Negative)
[2019-06-16 20:12] LABS: BACTERIA-REFLEX 1-9 Few /HPF (None Seen); CASTS None Seen /LPF (None Seen); CRYSTALS None Seen /LPF (None Seen); SQUAMOUS None Seen /LPF (0-3); URINE RBC 0-2 Rare /HPF (0-2); URINE WBC-REFLEX >25 Many /HPF (0-5); WBC CLUMPS Many (None Seen)
[2019-06-16 22:36] VITALS: BP 117/49
--- NOTE | 2019-06-17 08:56 | EKG ---
[address] [address] ELECTROCARDIOGRAM REPORT Name: ANAMIKA MEEK Room #: [facility] Bethanie#: [id number] ������������������ Admission: 06/16/19 ������������������ Attend Phys: Discharge: 06/16/19 ������������������ Date of : 49 Report #: [id number] ����������������������������������������������������������������� [id number] THIS REPORT FOR: //name// [facility] ED Test Date: 2019-06-16 Test Time: 17:37:20 Pat Name: ANAMIKA MEEK Department: Room: Gender: F Baker Test: jljoshua : 1945 Requested By: Zaid Lomas Order Number: [id number] MD: Rob Ash Measurements Intervals [place] Rate: 98 P: FL: QRS: 61 QRSD: 104 T: QT: 375 QTc: 479 Interpretive Statements Atrial fibrillation Borderline repolarization abnormality Compared to ECG 04/02/2019 19:51:16 No significant change was found Electronically Signed On 06-17-2019 8:55:59 CDT by Rob Ash [email or web address] ��������������������������������������������� <ELECTRONICALLY SIGNED> ���������������������������������������� By: Rob Ash MD, [facility] ��������������������������������������������� 06/17/19 0855 1737 1737 Rob Ash MD, FACC /EPI
== END 2019-06-16 22:38 | disposition home or self-care (01) ==
LOC: ER 14:34
PROVIDERS: Emergency Medicine
DX: R53.1 Weakness (principal); I48.91 Unspecified atrial fibrillation; E03.9 Hypothyroidism, unspecified; F32.9 Major depressive disorder, single episode, unspecified; I12.9 Hypertensive chronic kidney disease with stage 1 through stage 4 chronic kidney disease, or unspecified chronic kidney disease; N18.3 Chronic kidney disease, stage 3 (moderate); M17.9 Osteoarthritis of knee, unspecified; Z86.14 Personal history of Methicillin resistant Staphylococcus aureus infection; Z96.651 Presence of right artificial knee joint; Z85.828 Personal history of other malignant neoplasm of skin; Z86.2 Personal history of diseases of the blood and blood-forming organs and certain disorders involving the immune mechanism; Z90.89 Acquired absence of other organs; Z90.49 Acquired absence of other specified parts of digestive tract; Z96.641 Presence of right artificial hip joint; Z88.6 Allergy status to analgesic agent; Z91.040 Latex allergy status; Z88.5 Allergy status to narcotic agent; Z91.048 Other nonmedicinal substance allergy status; Z88.8 Allergy status to other drugs, medicaments and biological substances